=== PATIENT | male | born 1960 | race Caucasian/White ===

== ENCOUNTER 2020-11-13 07:51 | Outpatient (CLI) | payer BC, SELFPAY ==
[2020-11-13 08:09] LABS: Basophils Absolute Auto 0.1 K/mm3 (0.0-0.1); Basophils Percent Auto 0.7 % (0.2-1.2); Eosinophils Absolute Auto 0.2 K/mm3 (0-0.3); Eosinophils Percent Auto 1.9 % (0-4.4); Hematocrit 43.9 % (42.0-52.0); Hemoglobin 14.7 g/dL (14.0-18.0); Immature Granulocyte Absolute 0.07 K/mm3 (0.00-0.031); Immature Granulocyte Percent A 0.7 % (0-0.5); Lymphocytes Absolute Auto 1.39 K/mm3 (0.9-3.2); Lymphocytes Percent Auto 14.2 % (18.3-44.2); Mean Corpuscular HGB Conc 33.5 g/dl (32-36); Mean Corpuscular Hemoglobin 31.4 pg (26-34); Mean Corpuscular Volume 93.8 fl (80-100); Mean Platelet Volume 10.4 fl (7.4-10.4); Monocytes Absolute Auto 0.9 K/mm3 (0.1-0.6); Neutrophils Absolute Auto 7.2 K/mm3 (1.3-6.7); Neutrophils Percent Auto 73.5 % (45.5-73.1); Platelet Count Result 277 k/mm3 (150-375); Red Blood Count 4.68 M/mm3 (4.6-6.20); Red Cell Distribution Width 12.6 % (11.5-14.5); White Blood Count 9.8 K/mm3 (4.5-10.0)
[2020-11-13 08:39] LABS: Alanine Aminotransferase 28 U/L (4-50); Albumin Level 4.3 g/dL (3.5-5.1); Alkaline Phosphatase 58 U/L (38-126); Anion Gap 9 mmol/L (8-16); Aspartate Amino Transferase 30 U/L (17-59); Bilirubin,Total 0.6 mg/dL (0.2-1.3); Blood Urea Nitrogen 19 mg/dL (9-20); Calcium 9.6 mg/dL (8.4-10.2); Carbon Dioxide 28 mmol/L (22-30); Chloride 104 mmol/L (98-107); Cholesterol 237 mg/dL (0-200); Estimated Glomerular Filt Rate > 60; Glucose 149 mg/dL (75-110); HDL Direct 46 mg/dL; Potassium 4.5 mmol/L (3.4-5.0); Sodium 141 mmol/L (137-145); Triglycerides 184 mg/dL (<150)
[2020-11-13 08:51] LABS: LDL Cholesterol Direct 127 mg/dL
== END 2020-11-13 07:52 | disposition home or self-care (01) ==
PROVIDERS: PCP Emergency Medicine; Visit Provider Emergency Medicine
DX: E78.2 Mixed hyperlipidemia (principal)
CPT/HCPCS: 36415; 80053; 80061; 85025

== ENCOUNTER 2020-11-14 11:42 | Outpatient (CLI) | payer BC, SELFPAY ==
[2020-11-14 12:17] LABS: Hemoglobin A1C 7.9 % (<5.7)
== END 2020-11-14 11:43 | disposition home or self-care (01) ==
PROVIDERS: PCP Emergency Medicine; Visit Provider Emergency Medicine
DX: E78.5 Hyperlipidemia, unspecified (principal)
CPT/HCPCS: 36415; 83036

== ENCOUNTER 2021-03-19 09:25 | Outpatient (CLI) | payer BC, SELFPAY ==
[2021-03-19 10:05] LABS: Alanine Aminotransferase 27 U/L (4-50); Albumin Level 4.7 g/dL (3.5-5.1); Alkaline Phosphatase 54 U/L (38-126); Anion Gap 10 mmol/L (8-16); Aspartate Amino Transferase 32 U/L (17-59); Bilirubin,Total 0.7 mg/dL (0.2-1.3); Blood Urea Nitrogen 23 mg/dL (9-20); Carbon Dioxide 27 mmol/L (22-30); Chloride 105 mmol/L (98-107); Cholesterol 130 mg/dL (0-200); Estimated Glomerular Filt Rate 56; Glucose 121 mg/dL (75-110); HDL Direct 46 mg/dL; Potassium 4.5 mmol/L (3.4-5.0); Sodium 142 mmol/L (137-145); Triglycerides 105 mg/dL (<150)
[2021-03-19 10:08] LABS: LDL Cholesterol Direct 50 mg/dL
[2021-03-19 10:12] LABS: Hemoglobin A1C 6.5 % (<5.7)
[2021-03-19 11:20] LABS: Creatinine Urine 145.5 mg/dL
[2021-03-19 11:24] LABS: MALB Creatinine Ratio 73.4 mg/g (0-30); Microalbumin Urine Random 106.8 mg/L (0-16.7)
== END 2021-03-19 09:26 | disposition home or self-care (01) ==
LOC: ANHLAB 09:26
PROVIDERS: PCP Emergency Medicine; Visit Provider Emergency Medicine
DX: E11.9 Type 2 diabetes mellitus without complications (principal); I10 Essential (primary) hypertension
CPT/HCPCS: 36415; 80053; 80061; 82043; 83036

== ENCOUNTER 2021-07-31 08:23 | Outpatient (CLI) | payer BC, SELFPAY ==
[2021-07-31 09:24] LABS: Alanine Aminotransferase 22 U/L (4-50); Albumin Level 4.6 g/dL (3.5-5.1); Alkaline Phosphatase 50 U/L (38-126); Anion Gap 7 mmol/L (8-16); Aspartate Amino Transferase 26 U/L (17-59); Bilirubin,Total 0.5 mg/dL (0.2-1.3); Blood Urea Nitrogen 26 mg/dL (9-20); Calcium 9.7 mg/dL (8.4-10.2); Carbon Dioxide 30 mmol/L (22-30); Chloride 103 mmol/L (98-107); Cholesterol 145 mg/dL (0-200); Estimated Glomerular Filt Rate > 60; Glucose 116 mg/dL (65-110); HDL Direct 45 mg/dL; Potassium 4.4 mmol/L (3.4-5.0); Sodium 140 mmol/L (137-145); Triglycerides 110 mg/dL (<150)
[2021-07-31 09:30] LABS: Hemoglobin A1C 6.3 % (<5.7)
[2021-07-31 09:35] LABS: LDL Cholesterol Direct 66 mg/dL
[2021-07-31 09:48] LABS: Creatinine Urine 75.9 mg/dL
[2021-07-31 09:52] LABS: MALB Creatinine Ratio 63.6 mg/g (0-30); Microalbumin Urine Random 48.3 mg/L (0-16.7)
== END 2021-07-31 08:24 | disposition home or self-care (01) ==
PROVIDERS: PCP Emergency Medicine; Visit Provider Emergency Medicine
DX: E11.9 Type 2 diabetes mellitus without complications (principal); I10 Essential (primary) hypertension
CPT/HCPCS: 36415; 80053; 80061; 82043; 83036

== ENCOUNTER 2022-02-01 09:38 | Outpatient (CLI) | payer BC, SELFPAY ==
[2022-02-01 10:28] LABS: Alanine Aminotransferase 21 U/L (6-50); Albumin Level 4.9 g/dL (3.5-5.1); Alkaline Phosphatase 52 U/L (38-126); Anion Gap 9 mmol/L (8-16); Aspartate Amino Transferase 27 U/L (17-59); Bilirubin,Total 0.4 mg/dL (0.2-1.3); Blood Urea Nitrogen 22 mg/dL (9-20); Calcium 9.6 mg/dL (8.4-10.2); Carbon Dioxide 27 mmol/L (22-30); Chloride 103 mmol/L (98-107); Cholesterol 152 mg/dL (0-200); Estimated Glomerular Filt Rate > 60; Glucose 129 mg/dL (65-110); HDL Direct 44 mg/dL; Potassium 4.3 mmol/L (3.4-5.0); Sodium 139 mmol/L (137-145); Triglycerides 91 mg/dL (<150)
[2022-02-01 10:29] LABS: Creatinine Urine 104.2 mg/dL
[2022-02-01 10:34] LABS: Microalbumin Urine Random 68.8 mg/L (0-16.7)
[2022-02-01 10:40] LABS: LDL Cholesterol Direct 69 mg/dL
[2022-02-01 10:41] LABS: Hemoglobin A1C 6.3 % (<5.7)
[2022-02-01 10:53] LABS: Prostate Specific Antigen 1.6 ng/mL (< OR = 4.0)
== END 2022-02-01 09:39 | disposition home or self-care (01) ==
PROVIDERS: PCP Emergency Medicine; Visit Provider Emergency Medicine
DX: E11.9 Type 2 diabetes mellitus without complications (principal); I10 Essential (primary) hypertension; Z12.5 Encounter for screening for malignant neoplasm of prostate
CPT/HCPCS: 36415; 80053; 80061; 82043; 83036; 84153; G0103

== ENCOUNTER 2023-03-09 07:45 | Outpatient (CLI) | payer BC, SELFPAY ==
[2023-03-09 08:33] LABS: Alanine Aminotransferase 22 U/L (6-50); Albumin Level 4.3 g/dL (3.5-5.1); Alkaline Phosphatase 52 U/L (38-126); Anion Gap 6 mmol/L (8-16); Aspartate Amino Transferase 25 U/L (17-59); Bilirubin,Total 0.4 mg/dL (0.2-1.3); Blood Urea Nitrogen 22 mg/dL (9-20); Calcium 8.9 mg/dL (8.4-10.2); Carbon Dioxide 29 mmol/L (22-30); Chloride 106 mmol/L (98-107); Cholesterol 101 mg/dL (0-200); Estimated Glomerular Filt Rate > 60; Glucose 111 mg/dL (65-110); HDL Direct 39 mg/dL; Potassium 4.3 mmol/L (3.4-5.0); Sodium 141 mmol/L (137-145); Triglycerides 61 mg/dL (<150)
[2023-03-09 08:38] LABS: Hemoglobin A1C 6.4 % (<5.7)
[2023-03-09 08:44] LABS: LDL Cholesterol Direct 48 mg/dL
[2023-03-09 09:04] LABS: Prostate Specific Antigen 1.7 ng/mL (< OR = 4.0)
[2023-03-09 09:12] LABS: MALB Creatinine Ratio 58.6 mg/g (0-30); Microalbumin Urine Random 49.2 mg/L (0-16.7)
== END 2023-03-09 07:46 | disposition home or self-care (01) ==
LOC: ANHLAB 07:47
PROVIDERS: PCP Emergency Medicine; Visit Provider Emergency Medicine
DX: E78.5 Hyperlipidemia, unspecified (principal); Z12.5 Encounter for screening for malignant neoplasm of prostate; E11.9 Type 2 diabetes mellitus without complications
CPT/HCPCS: 36415; 80053; 80061; 82043; 83036; 84153; G0103

== ENCOUNTER 2023-08-18 07:15 | Outpatient (CLI) | payer BC, SELFPAY ==
--- NOTE | ~2023-08-18 | XR_ITS ---
[id number] 08/18/2023 07:37 Indication: Left knee pain Procedure: 2 views left knee Comparison: No prior studies for comparison. Findings: Mild osteoarthritis of the left knee. No fracture or traumatic malalignment. No significant joint effusion. No foreign bodies. Impression: 1: Mild osteoarthritis of the left knee. Reviewed, dictated and finalized at location L. COMMUNICATIONS REPAIRER Impression: 1: Mild osteoarthritis of the left knee.
== END 2023-08-18 07:16 ==
PROVIDERS: PCP Emergency Medicine; Visit Provider Emergency Medicine
DX: M17.12 Unilateral primary osteoarthritis, left knee (principal)
CPT/HCPCS: 73560

== ENCOUNTER 2023-09-30 07:44 | Outpatient (CLI) | payer BC, SELFPAY ==
[2023-09-30 08:25] LABS: Alanine Aminotransferase 23 U/L (6-50); Albumin Level 4.4 g/dL (3.5-5.1); Alkaline Phosphatase 67 U/L (38-126); Anion Gap 11 mmol/L (8-16); Aspartate Amino Transferase 27 U/L (17-59); Bilirubin,Total 0.8 mg/dL (0.2-1.3); Blood Urea Nitrogen 17 mg/dL (9-20); Calcium 9.5 mg/dL (8.4-10.2); Carbon Dioxide 24 mmol/L (22-30); Chloride 104 mmol/L (98-107); Cholesterol 143 mg/dL (0-200); Estimated Glomerular Filt Rate > 60; Glucose 147 mg/dL (65-110); HDL Direct 46 mg/dL; Potassium 4.1 mmol/L (3.4-5.0); Sodium 139 mmol/L (137-145); Triglycerides 116 mg/dL (<150)
[2023-09-30 08:31] LABS: Hemoglobin A1C 9.1 % (<5.7)
[2023-09-30 08:36] LABS: LDL Cholesterol Direct 73 mg/dL
[2023-09-30 08:59] LABS: Creatinine Urine 165.8 mg/dL
[2023-09-30 09:04] LABS: MALB Creatinine Ratio 64.6 mg/g (0-30); Microalbumin Urine Random 107.1 mg/L (0-16.7)
== END 2023-09-30 07:45 | disposition home or self-care (01) ==
LOC: ANHLAB 07:46
PROVIDERS: PCP Emergency Medicine; Visit Provider Emergency Medicine
DX: E78.5 Hyperlipidemia, unspecified (principal); E11.9 Type 2 diabetes mellitus without complications
CPT/HCPCS: 36415; 80053; 80061; 82043; 83036

== ENCOUNTER 2023-10-24 01:18 | Observation (INO) | payer BC, SELFPAY ==
[2023-10-24] VITALS (11 sets, daily range): BP systolic 121–172; BP diastolic 67–94; PULSE 56–96; RESP 14–24; TEMP 36.4–37.3; O2SAT 96–100
--- NOTE | ~2023-10-24 | XR_ITS ---
EXAMINATION: XR retrograde pyelo w/stent LT DATE: 10/24/2023 13:27 INDICATION: Left ureteral stent placement TECHNIQUE: 76 fluoroscopic images of the abdomen and pelvis were obtained during procedure performed by Dr. Tan. Radiologist was not present for the imaging or procedure. The amount of fluoroscopy t arpan used during this procedure was 0.4 minutes. COMPARISON: CT dated 10/24/2023 FINDINGS: No change in a couple bilateral renal stones, the larger on the right project over the lower pole of the right kidney and the smaller on the left in the region of the left ureteropelvic junction. No yesy nge in a couple phleboliths in the deep left hemipelvis. Retrograde contrast injection into the left ureter with demonstrates passage of contrast beyond the stone at the ureteropelvic junction into the mildly dilated left renal collecting system. The left ureter appears normal. Final images demonstrate a new left internal ureteral stent with loops formed in the bladder and in the left renal pelvis. Th e stone at the left ureteropelvic junction remains in place. IMPRESSION: 1. Bilateral nephrolithiasis including at least partially obstructing stone at the left ureteropelvic junction. 2. Placement of a left intrarenal stent which is in expected position. The stone at the ureteropelvic junction appears to remain in unchanged position post placement. Reviewed, dictated and finalized at location A. S PARTER IMPRESSION: 1. Bilateral nephrolithiasis including at least partially obstructing stone at the left ureteropelvic junction. 2. Placement of a left intrarenal stent which is in expected position. The ston e at the ureteropelvic junction appears to remain in unchanged position post pl acement.
--- NOTE | ~2023-10-24 | CT_ITS ---
EXAMINATION: CT abdomen pelvis wo con DATE: 10/24/2023 02:04 INDICATION: Flank pain. Kidney stones. TECHNIQUE: Computed tomography (CT) of the abdomen and pelvis was performed without intravenous contr ast. Automated exposure control and iterative reconstruction technique were employed. The dose-length product was 977.24 mGy-cm. COMPARISON: CT abdomen 12/27/2008, abdomen radiographs 10/24/2023 FINDINGS: The visualized portions of the lung bases demonstrate minimal atelectasis. No pleural effus ion. The heart size is normal. There are coronary artery calcifications. No pericardial effusion. The re is a small sliding hiatal hernia. Calcifications in the liver and spleen are consistent with old g ranulomatous disease. The gallbladder, pancreas, and adrenal glands are normal. There are 3 mm and 18 mm stones in right kidney. There is mild left hydronephrosis. There is an 8 mm stone in proximal lef t ureter. The prostate is mildly enlarged. There are no dilated loops of bowel. The appendix is tam l. There is calcified atherosclerosis of the aorta and many of the other arteries. There are no patho logically enlarged lymph nodes. There is no free intraperitoneal fluid. There is severe lumbar spondy losis and moderate thoracic spondylosis. IMPRESSION: 1. 8 mm stone in proximal left ureter with mild left hydronephrosis. 2. Nonobstructing right kidney stones. 3. Small sliding hiatal hernia. Reviewed, dictated and finalized at location E. OTICS TECHNICIAN
--- NOTE | ~2023-10-24 | XR_ITS ---
EXAMINATION: XR abdomen/kub 1V DATE: 10/24/2023 04:46 INDICATION: Urolithiasis. TECHNIQUE: A supine view of the abdomen on 2 radiographs was obtained. COMPARISON: Abdomen radiographs 03/08/2009, CT abdomen and pelvis 10/24/2023 FINDINGS: There are no dilated loops of bowel. There are 18 mm and 3 mm stones in right kidney. There is a 5 mm stone in proximal left ureter at L1-L2. There are phleboliths in the pelvis. IMPRESSION: 1. 5 mm stone in proximal left ureter. 2. 18 mm and 3 mm stones in right kidney. Reviewed, dictated and finalized at location E. MAKER
--- NOTE | ~2023-10-24 | XR_ITS ---
EXAMINATION: XR abdomen/kub 1V DATE: 10/25/2023 12:04 INDICATION: Left ureteral stone. TECHNIQUE: A supine view of the abdomen was obtained. COMPARISON: CT abdomen and pelvis 10/24/2023 FINDINGS: There are no dilated loops of bowel. There is a left internal ureteral stent in expected po sition. There is a 5 mm stone in proximal left ureter. There is a 16 mm stone in right kidney. IMPRESSION: 1. 5 mm stone in proximal left ureter with left internal ureteral stent in expected position. 2. Right kidney stone. Reviewed, dictated and finalized at location A. NE ADVERTISING DIRECTOR IMPRESSION: 1. 5 mm stone in proximal left ureter with left internal ureteral stent in expe cted position. 2. Right kidney stone.
[2023-10-24 02:05] LABS: Basophils Percent Auto 0.1 % (0.2-1.2); Hemoglobin 14.5 g/dL (14.0-18.0); Immature Granulocyte Absolute 0.08 K/mm3 (0.00-0.031); Immature Granulocyte Percent A 0.6 % (0-0.5); Lymphocytes Absolute Auto 0.84 K/mm3 (0.9-3.2); Lymphocytes Percent Auto 6.5 % (18.3-44.2); Mean Corpuscular HGB Conc 34.5 g/dl (32-36); Mean Corpuscular Hemoglobin 30.9 pg (26-34); Mean Corpuscular Volume 89.4 fl (80-100); Mean Platelet Volume 10.9 fl (7.4-10.4); Monocytes Absolute Auto 1.2 K/mm3 (0.1-0.6); Monocytes Percent Auto 9.3 % (2.6-8.5); Neutrophils Absolute Auto 10.9 K/mm3 (1.3-6.7); Neutrophils Percent Auto 83.5 % (45.5-73.1); Platelet Count Result 223 k/mm3 (150-375); Red Cell Distribution Width 12.2 % (11.5-14.5)
[2023-10-24 02:15] LABS: Alanine Aminotransferase 20 U/L (6-50); Albumin Level 4.1 g/dL (3.5-5.1); Alkaline Phosphatase 81 U/L (38-126); Anion Gap 12 mmol/L (8-16); Aspartate Amino Transferase 25 U/L (17-59); Blood Urea Nitrogen 14 mg/dL (9-20); Calcium 9.3 mg/dL (8.4-10.2); Carbon Dioxide 20 mmol/L (22-30); Chloride 102 mmol/L (98-107); Estimated CRCL calculation 84 ml/min; Estimated Glomerular Filt Rate > 60; Glucose 228 mg/dL (65-110); Potassium 3.6 mmol/L (3.4-5.0); Sodium 134 mmol/L (137-145)
[2023-10-24] MEDS: ONDANSETRON INJ 4 MG/2 ML VIAL IV PUSH (02:23)
[2023-10-24] MEDS: MORPHINE SULFATE (*CRX) 4 MG/ML INJ IV PUSH ×2 (02:23→08:34)
[2023-10-24] MEDS: SODIUM CHLORIDE 0.9% IV 1,000 ML 999 ML IV CONT ×3 (02:24→05:31)
--- NOTE | 2023-10-24 03:01 | ED.ABDPAIN ---
HPI - Abdominal Pain General Chief Complaint: Abdominal Pain Stated Complaint: kidney stone pain, stool is red/orange Time Seen by Provider: 10/24/23 01:31 Source: patient Mode of arrival: ambulatory Limitations: no limitations History of Present Illness HPI narrative: This is a 63 year old male that presents to the ER for left flank pain. Ongoing over the last 3 days. Associated with hematuria. Reports additionally yesterday he started to have myalgias, vomiting and diarrhea. Denies fevers or dysuria. Related Data Home Medications Medication Instructions Recorded Confirmed ferrous sulfate 325 mg (65 mg 325 mg PO DAILY 10/31/20 10/04/23 iron) tablet (iron) magnesium 250 mg tablet 250 mg PO DAILY 10/31/20 10/04/23 potassium 99 mg tablet See Rx Instructions .Route .COMPLEX 10/31/20 10/04/23 zinc 50 mg tablet 50 mg PO DAILY 10/31/20 10/04/23 diclofenac sodium 1 % topical gel 2 g topical QID PRN 08/17/23 10/04/23 (Voltaren Arthritis Pain) glucosamine [id number] 1 tablet PO DAILY 08/17/23 10/04/23 teodoro 1,500 mg-400 unit-100 mg tablet (Osteo Bi-Flex (5-Loxin)) Allergies Allergy/AdvReac Type Severity Reaction Status Date / Time Penicillins Allergy Unknown unknown Verified 10/24/23 01:33 Review of Systems Review of Systems: CONSTITUTIONAL: Denies fever GASTROINTESTINAL: Reports abdominal pain, nausea, vomiting, and diarrhea. GENITOURINARY: Reports hematuria. Denies dysuria All systems reviewed & are unremarkable except as noted in HPI and below [facility] Past Medical History Medical History (Updated 10/24/23 @ 03:29 by Hanane Conti PA-C) HTN (hypertension) Mixed hyperlipidemia Family History Family History Father Family history of arthritis Social History Social History Smoking status: Current every day smoker Alcohol intake: current Alcohol use details: occasionally Lack of Transportation: No Lack of Food: Never True Current Housing: I Have Housing Concerned About Future Housing: YES Difficulty Paying Gas/Electric Bills: No Difficulty Paying for Meds: No Currently Unemployed: No Education: High School Diploma/GED Difficulty w/ Childcare or Family Care: No Exam Narrative: GENERAL: Well-appearing, well-nourished, and in no acute distress. HEAD: Normocephalic, atraumatic. EYES: EOMI. CHEST: Clear to auscultation. No respiratory distress. No wheezes rales or rhonchi HEART: Regular rate and rhythm. No murmur heard. Normal peripheral pulses. ABDOMEN: Soft, nontender, nondistended, normal active bowel sounds. EXTREMITIES: Normal range of motion. No edema. SKIN: Warm, dry, no rash. NEURO: No focal deficits. Alert and oriented x3. PSYCH: Normal mood and affect Course Course Emergency Course: patient updated on his workup and agrees with plan of care Consultations Consultation #1: spoke with Dr. Rawls about patient and workup. Agrees with admission for further IV antibiotics and possible procedure Date: 10/24/23 Consultation #2: Spoke with hospitalist about patient and workup who accepts admission Date: 10/24/23 Vital Signs Vital signs: Vital Signs Temperature 98.5 F 10/24/23 01:21 Pulse Rate 96 10/24/23 01:21 Respiratory Rate 24 H 10/24/23 01:21 Blood Pressure 172/94 H 10/24/23 01:21 Pulse Oximetry 99 10/24/23 01:21 Oxygen Delivery Room Air 10/24/23 01:21 Temperature 98.5 F 10/24/23 01:21 Pulse Rate 72 10/24/23 04:12 Respiratory Rate 18 10/24/23 04:12 Blood Pressure 141/89 H 10/24/23 04:12 Pulse Oximetry 98 10/24/23 04:12 Oxygen Delivery Room Air 10/24/23 01:21 MDM - Abdominal Pain MDM Narrative Medical decision making narrative: Patient presents to the ER for left flank pain ongoing over the last couple of days. Additionally endorsing vomiting, diarrhea and myalgias. He is afe
[2023-10-24 03:23] LABS: Appearance Urine Turbid (Clear); Bacteria Urine 1+ /hpf; Bilirubin Urine Negative (Negative); Blood Urine 2+ (Negative); Color Urine Yellow (Yellow); Glucose Urine UA Negative (Negative); Ketones Urine 3+ mg/dL (Negative); Leukocyte Esterase Ur 3+ LEU/UL (Negative); Nitrate Urine Positive (Negative); Non Pathogenic Casts 0-2; Protein Urine 2+ mg/dL (Negative); RBC Urine 21-50 /hpf (0-2); Specific Grav Ur 1.023 (1.001-1.035); Squamous Epithelial Cell Urine None seen /hpf (Few); Urobilinogen Urine 0.2 mg/dL (<2.0); WBC Urine >100 /hpf; pH Urine 5.5 (5.0-9.0)
[2023-10-24 03:24] LABS: Add Urine Microscopic? YES
[2023-10-24 03:49] LABS: Influenza A QL RT-PCR Negative (Negative); Influenza B QL RT-PCR Negative (Negative); SARS-CoV-2 RNA PCR Negative (Negative)
[2023-10-24 04:44] LABS: Lactic Acid Reflex 1.3 mmol/L (0.7-2.0)
--- NOTE | 2023-10-24 05:59 | ADMGEN ---
This patient, Francisco Leroy, was admitted to Medical Room 253-01. Patient/family oriented to hospital policies and general routines including ID bracelet, bed and alarms, visiting hours, pain management, procedures, bathroom and other care routines, personal items, smoking policy, room service/diet, and visiting hours. Information on how to activate the Rapid Response Team has been discussed. Patient/Family are encouraged to report perceived risks to care and to ask questions if they do not understand what they are told or what they should do.
[2023-10-24] MEDS: SODIUM CHLORIDE 0.9% IV 1,000 ML 125 ML IV CONT (06:25)
--- NOTE | 2023-10-24 07:51 | WPDURCON ---
Assessment and Plan Assessment and plan (1) Left ureteral stone: Code(s): N20.1 - Calculus of ureter Status: Acute Assessment and Plan: I reviewed imaging and discuss findings with the patient. He has had stone intervention in the past informed lithotripsy. He has also passed stones on his own. This stone is large and likelihood of passage on its own is low. We will plan on a left ureteral stent today. He understands risks of bleeding, infection, damage to the urinary tract, inability to place the stent. He also understands I will not be removing the stone. For 2 reasons: Possibility of infection and size and location of the stone. He will have delayed stone management form of lithotripsy or ureteroscopy (2) Calculus, kidney: Code(s): N20.0 - Calculus of kidney Status: Acute Assessment and Plan: Large right lower pole stone. (3) Abnormal urinalysis: Code(s): R82.90 - Unspecified abnormal findings in urine Status: Acute Assessment and Plan: Does not clinically seem infected. Urinalysis is positive continue antibiotics for now. Await urine culture. Treat as appropriate based on culture results Urology Consult Note HPI Date Seen: 10/24/23 Requesting Physician: Berta Martinez DO Primary Care Provider: Shan Lewis MD Consult Narrative Narrative: Francisco Leroy is a 63 year old male iron 3 of multiple kidney stones. He has passed several on his own in the past. He has also had lithotripsy in the past. He is followed by my partner Dr. Rodriguez. Currently he has been having left flank pain since . He took some Tylenol and ibuprofen at home. He also took some oxycodone that he had left over. He noted nausea and diarrhea. The pain did not relent and eventually became bad enough for visit the emergency room. He noted some dark colored urine. No gross hematuria. No fevers or chills. No dysuria or other symptoms of infection. He has a slightly elevated white count. He has an abnormal urinalysis but clinically does not look infected. CT scan shows a very large right lower pole kidney stone. He also has a 8 mm left proximal ureteral stone. It is visible on radiograph. We discussed interventions today in the form with stent with delayed intervention with either ureteroscopy or lithotripsy. Review of Systems Review of Systems: All systems reviewed & are unremarkable except as noted in HPI and below PMFSH Past Medical History Medical History HTN (hypertension) Mixed hyperlipidemia Family History Family History Father Family history of arthritis History of blood clots Cerebrovascular accident Renal stones Mother Renal stones Sibling Renal stones Social History Social History Smoking status: Never smoker Alcohol intake: current Drinks per week: 3 Alcohol use details: occasionally Substance use type: marijuana Do You Feel Safe in your Home?: Yes Lack of Transportation: No Lack of Food: Never True Current Housing: I Have Housing Concerned About Future Housing: No Difficulty Paying Gas/Electric Bills: No Difficulty Paying for Meds: No Currently Unemployed: No Education: High School Diploma/GED Difficulty w/ Childcare or Family Care: No Spiritual care concerns: No Meds Home Medications and Allergies Home Medications Medication Instructions Recorded Confirmed Type ferrous sulfate 325 mg (65 mg 325 mg PO DAILY 10/31/20 10/24/23 History iron) tablet (iron) magnesium 250 mg tablet 250 mg PO DAILY 10/31/20 10/24/23 History potassium 99 mg tablet 99 mg PO DAILY 10/31/20 10/24/23 History zinc 50 mg tablet 50 mg PO DAILY 10/31/20 10/24/23 History diclofenac sodium 1 % topical gel 2 g topical QID PRN Pain (Scale 08/17/23 10/24/23 Hist
--- NOTE | 2023-10-24 07:58 | WPDHPUPDATE1 ---
History and Physical Update Update Date/Time: 10/24/23 07:58 History and Physical has been reviewed, including an updated exam of the patient. There are NO changes in the patient's condition. Risks, benefits, and alternatives have been discussed and questions answered. Patient agrees to proceed with procedure.
[2023-10-24 08:25] LABS: Glucose Point of Care 178 mg/dl (65-105)
[2023-10-24] MEDS: LACTATED RINGERS 1,000 ML 30 ML IV CONT (12:00)
[2023-10-24 12:05] LABS: Glucose Point of Care 154 mg/dl (65-105)
--- NOTE | 2023-10-24 12:07 | PC.NURSE ---
Patient left the floor at 1209 by stretcher to be transported to for procedure.
[2023-10-24 12:29] LABS: Glucose Point of Care 150 mg/dl (65-105)
--- NOTE | 2023-10-24 12:43 | WPDANESEPPF ---
Anes - Initial Pre Proc Eval Procedure: Operation Date: 10/24/23 13:00 Proposed Procedures p Cystoscopy,Left Stent Placement - Stephen Tan MD Date/Time: 10/24/23 12:43 Surgeon: Berta Martinez DO Pre Op Diagnosis: Ureterolithiasis, Acute UTI Patient Data Age: 63 Gender: M Height: 1.75 m Weight: 95.25 kg Last Vital Signs Temp 36.4 C 10/24/23 05:50 Pulse 74 10/24/23 05:50 Resp 20 10/24/23 05:50 BP 146/85 H 10/24/23 05:50 Pulse Ox 99 10/24/23 05:50 O2 Del Method Room Air 10/24/23 08:00 Allergies Allergy/AdvReac Type Severity Reaction Status Date / Time Penicillins Allergy Unknown unknown Verified 10/24/23 01:33 Home Medications Medication Instructions Recorded Confirmed Type ferrous sulfate 325 mg (65 mg 325 mg PO DAILY 10/31/20 10/24/23 History iron) tablet (iron) magnesium 250 mg tablet 250 mg PO DAILY 10/31/20 10/24/23 History potassium 99 mg tablet 99 mg PO DAILY 10/31/20 10/24/23 History zinc 50 mg tablet 50 mg PO DAILY 10/31/20 10/24/23 History diclofenac sodium 1 % topical gel 2 g topical QID PRN Pain (Scale 08/17/23 10/24/23 History (Voltaren Arthritis Pain) Score 1-3) glucosamine [id number] 1 tablet PO DAILY 08/17/23 10/24/23 History teodoro 1,500 mg-400 unit-100 mg tablet (Osteo Bi-Flex (5-Loxin)) allopurinol 100 mg tablet 100 mg PO DAILY 10/24/23 10/24/23 History lisinopril 10 mg tablet 10 mg PO DAILY 10/24/23 10/24/23 History rosuvastatin 10 mg tablet 10 mg PO DAILY 10/24/23 10/24/23 History Laboratory Tests 10/24/23 10/24/23 10/24/23 01:43 03:09 03:13 WBC 13.0 H K/mm3 (4.5-10.0) RBC 4.70 M/mm3 (4.6-6.20) Hgb 14.5 g/dL (14.0-18.0) Hct 42.0 % (42.0-52.0) MCV 89.4 fl (80-100) MCH 30.9 pg (26-34) MCHC 34.5 g/dl (32-36) RDW 12.2 % (11.5-14.5) Plt Count 223 k/mm3 (150-375) MPV 10.9 H fl (7.4-10.4) Immature Gran % (Auto) 0.6 H % (0-0.5) Neut % (Auto) 83.5 H % (45.5-73.1) Lymph % (Auto) 6.5 L % (18.3-44.2) [place] % (Auto) 9.3 H % (2.6-8.5) Eos % (Auto) 0.0 % (0-4.4) Baso % (Auto) 0.1 L % (0.2-1.2) Lymph # (Auto) 0.84 L K/mm3 (0.9-3.2) [place] # (Auto) 1.2 H K/mm3 (0.1-0.6) Eos # (Auto) 0.0 K/mm3 (0-0.3) Baso # (Auto) 0.0 K/mm3 (0.0-0.1) Abs Immat Gran (auto) 0.08 H K/mm3 (0.00-0.031) Absolute Neuts (auto) 10.9 H K/mm3 (1.3-6.7) Absolute Nucleated RBC 0.0 K/mm3 (0.0-0.012) Nucleated RBC % 0.0 % (0.0-0.2) Sodium 134 L mmol/L (137-145) Potassium 3.6 mmol/L (3.4-5.0) Chloride 102 mmol/L (98-107) Carbon Dioxide 20 L mmol/L (22-30) Anion Gap 12 mmol/L (8-16) BUN 14 mg/dL (9-20) Creatinine 0.90 mg/dL (0.7-1.3) Estim Creat Clear Calc 84 ml/min Estimated GFR > 60 (59 - ) Glucose 228 H mg/dL (65-110) POC Capillary Glucose Lactic Acid Calcium 9.3 mg/dL (8.4-10.2) Total Bilirubin 1.0 mg/dL (0.2-1.3) AST 25 U/L (17-59) ALT 20 U/L (6-50) Alkaline Phosphatase 81 U/L (38-126) Total Protein 8.0 g/dL (6.3-8.2) Albumin 4.1 g/dL (3.5-5.1) Urine Color Yellow (Yellow) Urine Appearance Turbid H (Clear) Urine pH 5.5 (5.0-9.0) Ur Specific [place] 1.023 (1.001-1.035) Urine Protein 2+ H mg/dL (Negative) Urine Glucose (UA) Negative mg/dL (Negative) Urine Ketones 3+ H mg/dL (Negative) Ur Blood (Man) 2+ H (Negative) Urine Nitrate Positive H (Negative) Urine Bilirubin Negative (Negative) Urine Urobilinogen 0.2 mg/dL (<2.0) Leukocyt
[2023-10-24] MEDS: LIDOCAINE HCL 2% GEL UROJET 10 ML PKG MUCOUS MEM (13:11)
--- NOTE | 2023-10-24 13:23 | W.PM.PROC2 ---
Procedure Note - Detailed Date of Procedure 10/24/23 Pre-op Diagnosis Left ureteral stone Post-op Diagnosis Same Procedure Performed Cystoscopy, left retrograde pyelogram, left stent placed Surgeon Stephen Tan MD Anesthesia MAC and Local (Lidocaine jelly) Indications A gentle with a left proximal ureteral stone. Abnormal urinalysis. We will place ureteral stent today. He understands risks of bleeding, infection, inability to place stent, damage to the urinary tract. He understands he will need delayed stone management Findings Left proximal ureteral stone Description of Procedure He has correctly identified. Informed consent obtained. From the operating room. He was given monitored anesthesia care. Placed in dorsal thigh position. He was prepped draped sterile fashion. He was already on appropriate perioperative antibiotics. A time-out performed. Cystoscopy revealed enlarged prostate. Bladder showed mild trabeculations. Ureteral orifices were normal. I shot a gentle retrograde pyelogram on the patient's left. There is some mild proximal hydronephrosis. There was a filling defect at the ureteropelvic junction. I placed a guidewire into the kidney. I then placed a 4.8 variable length stent. Proximal coil in the upper pole kidney. Distal coil the bladder. The bladder was drained. He was awakened transferred to PACU in stable condition. Implants Ureteral stent Estimated Blood Loss 1 Pathology None sent Complications No immediate complications Condition Stable Disposition PACU
[2023-10-24 13:33] LABS: Glucose Point of Care 170 mg/dl (65-105)
--- NOTE | 2023-10-24 13:35 | PM.IMHP ---
H&P: HPI History of Present Illness Date/Time: 10/24/23 13:35 Chief Complaint: Left flank pain Narrative: This is a 63-year-old male with a past medical history of uncontrolled diabetes, hypertension, hyperlipidemia and gout the presented to the ED on 10/24/2023 with chief complaint of left flank pain, diarrhea, nausea and vomiting. Patient's symptoms started approximately 5 days ago. He has history of kidney stones and has been dealing with them for at least 30 years. He believes that his symptoms were associated with kidney stone as well as flu-like symptoms. Patient thought that this stone will pass and selling but it did not. COVID in flu test is negative. CT abdomen pelvis revealing a 8 mm stone in the proximal left ureter with mild left hydronephrosis. Patient's urine is turbid, with 2+ blood, positive nitrates, 3+ leukocyte esterase, 21-50 rbc's, greater than 100 wbc's and 1+ bacteria. Patient started on IV antibiotics . Due to ongoing diarrhea and nausea patient likely dehydrated started on IV fluids. Urology consulted for ureteral stone. Patient admitted in the hospital and being treated for UTI and 8 mm left ureteral stone. [facility] Past Medical History Medical History (Updated 10/24/23 @ 13:47 by Liza Nelson PA-C) Diabetes mellitus HTN (hypertension) Mixed hyperlipidemia ANGY on CPAP Surgical History Surgical History H/O lithotripsy Family History Family History Father Family history of arthritis History of blood clots Cerebrovascular accident Renal stones Mother Renal stones Sibling Renal stones Social History Social History (Updated 10/24/23 @ 13:49 by Liza Nelson PA-C) Social History: Patient with history of chewing tobacco. Patient chewed tobacco for approximately 25 years and quit 7 years ago. Smoking status: Never smoker Tobacco type: smokeless tobacco Smokeless tobacco user: chewing tobacco Alcohol intake: current Drinks per week: 3 Alcohol use details: occasionally Substance use type: marijuana Do You Feel Safe in your Home?: Yes Lack of Transportation: No Lack of Food: Never True Current Housing: I Have Housing Concerned About Future Housing: No Difficulty Paying Gas/Electric Bills: No Difficulty Paying for Meds: No Currently Unemployed: No Education: High School Diploma/GED Difficulty w/ Childcare or Family Care: No Spiritual care concerns: No Meds Home Medications and Allergies Home Medications Medication Instructions Recorded Confirmed Type ferrous sulfate 325 mg (65 mg 325 mg PO DAILY 10/31/20 10/24/23 History iron) tablet (iron) magnesium 250 mg tablet 250 mg PO DAILY 10/31/20 10/24/23 History potassium 99 mg tablet 99 mg PO DAILY 10/31/20 10/24/23 History zinc 50 mg tablet 50 mg PO DAILY 10/31/20 10/24/23 History diclofenac sodium 1 % topical gel 2 g topical QID PRN Pain (Scale 08/17/23 10/24/23 History (Voltaren Arthritis Pain) Score 1-3) glucosamine [id number] 1 tablet PO DAILY 08/17/23 10/24/23 History teodoro 1,500 mg-400 unit-100 mg tablet (Osteo Bi-Flex (5-Loxin)) allopurinol 100 mg tablet 100 mg PO DAILY 10/24/23 10/24/23 History lisinopril 10 mg tablet 10 mg PO DAILY 10/24/23 10/24/23 History rosuvastatin 10 mg tablet 10 mg PO DAILY 10/24/23 10/24/23 History Allergies Allergy/AdvReac Type Severity Reaction Status Date / Time Penicillins Allergy Unknown unknown Verified 10/24/23 01:33 Vital Signs Vital Signs - 24 hr 10/24/23 01:21 10/24/23 01:32 10/24/23 04:12 Temperature 98.5 F Pulse Rate 96 93 72 Respiratory Rate 24 H 18 18 Blood Pressure 172/94 H 149/92 H 141/89 H Pulse Oximetry 99 98 98 Oxygen Delivery Room Air 10/24/23 06:09 10/24/23 05:50 10/24/23 08:00 Temperature 97.6 F Pulse Rate 74 Respiratory Rate 20 Blood Pressure 146/85 H Pulse
[2023-10-24] MEDS: PHENAZOPYRIDINE HCL 100 MG TABLET PO (16:38)
[2023-10-24] MEDS: oxyBUTYnin CHLORIDE 5 MG TABLET PO (16:38)
[2023-10-24 16:56] LABS: Glucose Point of Care 160 mg/dl (65-105)
[2023-10-24] MEDS: ACETAMINOPHEN 325 MG TABLET 650 MG PO (17:05)
[2023-10-24 20:44] LABS: Glucose Point of Care 191 mg/dl (65-105)
[2023-10-25] MEDS: oxyBUTYnin CHLORIDE 5 MG TABLET PO (00:14)
[2023-10-25 05:19] VITALS: BP 132/67; PULSE 63; RESP 18; TEMP 36.7; O2SAT 99
[2023-10-25 05:40] LABS: Hematocrit 37.4 % (42.0-52.0); Hemoglobin 12.7 g/dL (14.0-18.0); Mean Corpuscular Hemoglobin 30.5 pg (26-34); Mean Corpuscular Volume 89.9 fl (80-100); Mean Platelet Volume 11.1 fl (7.4-10.4); Platelet Count Result 176 k/mm3 (150-375); Red Blood Count 4.16 M/mm3 (4.6-6.20); Red Cell Distribution Width 11.9 % (11.5-14.5); White Blood Count 8.4 K/mm3 (4.5-10.0)
[2023-10-25 05:46] LABS: Alanine Aminotransferase 20 U/L (6-50); Albumin Level 3.4 g/dL (3.5-5.1); Alkaline Phosphatase 59 U/L (38-126); Anion Gap 10 mmol/L (8-16); Aspartate Amino Transferase 26 U/L (17-59); Bilirubin,Total 0.6 mg/dL (0.2-1.3); Blood Urea Nitrogen 12 mg/dL (9-20); Calcium 8.4 mg/dL (8.4-10.2); Carbon Dioxide 20 mmol/L (22-30); Chloride 104 mmol/L (98-107); Estimated CRCL calculation 94 ml/min; Estimated Glomerular Filt Rate > 60; Glucose 165 mg/dL (65-110); Potassium 3.3 mmol/L (3.4-5.0); Sodium 134 mmol/L (137-145)
[2023-10-25 08:02] LABS: Glucose Point of Care 180 mg/dl (65-105)
[2023-10-25] MEDS: FERROUS SULFATE 325 MG TABLET DR PO (08:44)
[2023-10-25] MEDS: allopurinoL 100 MG TABLET PO (08:44)
[2023-10-25] MEDS: lisinopriL 10 MG TABLET PO (08:44)
[2023-10-25] MEDS: ZINC SULFATE 220 MG CAPSULE PO (08:44)
[2023-10-25] MEDS: ROSUVASTATIN 10 MG TABLET PO (08:44)
[2023-10-25] MEDS: POTASSIUM CHLORIDE 20 MEQ ER TABLET 40 MEQ PO (08:44)
[2023-10-25] MEDS: MAGNESIUM OXIDE 200 MG TABLET PO (08:44)
--- NOTE | 2023-10-25 09:38 | WPDUROPN2 ---
Progress Note: A&P Assessment and Plan (1) Left ureteral stone: Code(s): N20.1 - Calculus of ureter Status: Acute Assessment and Plan: Noted to have 8 mm proximal left ureteral stone. Underwent cystoscopy with left retrograde pyelogram and left ureteral stent placement on 10/24/[address] Tan. Tolerated procedure well. Discussed temporary nature of stent and need for appropriate follow up for definitive stone management. Will obtain KUB to assess if stone is visible. (2) Calculus, kidney: Code(s): N20.0 - Calculus of kidney Status: Acute Assessment and Plan: CT demonstrates large right nonobstructing renal stones, largest measuring 18 mm. Consider elective treatement at a later date following treatment of left ureteral stone. (3) Abnormal urinalysis: Code(s): R82.90 - Unspecified abnormal findings in urine Status: Acute Assessment and Plan: UA is abnormal. Culture is pending. Continue empiric antibiotics while awaiting final results Subjective Subjective Date/Time Seen: 10/25/23 09:38 Interval history: Francisco is doing well today. He tolerated his procedure well yesterday. States overall pain is well controlled. He complains of some very mild intermittent left flank pain and pain at the tip of the penis with urination. States his urine is clear. He has been straining his urine without any stone fragments seen. He denies nausea, vomiting, fever, or chills. Tolerating his diet. Complains of diarrhea. WBC is within normal limits. Creatinine stable at 0.8. Urine culture is pending. Review of Systems Review of Systems: All systems reviewed & are unremarkable except as noted in HPI and below Exam Narrative: General: Awake, alert, comfortable, no acute distress HEENT: Normocephalic, atraumatic, sclerae anicteric Respiratory: Normal respiratory effort, no accessory muscle use Abdomen: Nondistended, soft, nontender Skin: Normal coloration, warm and dry Neurologic: No focal neuro deficits noted Psychiatric: Appropriate mood and affect, judgment and insight intact Objective Data Vital Signs Vital Signs: Vital Signs - 24 hr 10/24/23 12:00 10/24/23 13:28 10/24/23 13:43 Temperature 99.1 F 98.3 F Pulse Rate 64 76 67 Respiratory Rate 14 22 H 20 Blood Pressure 147/82 H 136/79 137/88 Pulse Oximetry 98 100 99 Oxygen Delivery Room Air Simple Face Mask Room Air Oxygen Flow Rate 8 10/24/23 13:58 10/24/23 14:13 10/24/23 14:40 Temperature 97.8 F Pulse Rate 66 65 67 Respiratory Rate 22 H 18 17 Blood Pressure 143/92 H 143/86 H 131/67 Pulse Oximetry 96 97 99 Oxygen Delivery Room Air Room Air Oxygen Flow Rate 10/24/23 19:45 10/24/23 20:43 10/25/23 05:19 Temperature 97.5 F L 98.0 F Pulse Rate 56 L 63 Respiratory Rate 20 18 Blood Pressure 121/72 132/67 Pulse Oximetry 99 99 Oxygen Delivery Room Air Oxygen Flow Rate Intake/Output Intake/Output: Intake & Output 10/22/23 10/23/23 10/24/23 10/25/23 23:59 23:59 23:59 23:59 Intake Total 2730 1140 Output Total 600 Balance 2130 1140 Meds/Results Medications: Active Medications Generic Name Dose Route Start Last Admin Trade Name Freq PRN Reason Stop Dose Admin Acetaminophen 650 mg 10/24/23 16:44 10/24/23 17:05 Acetaminophen 325 Mg Tablet PO 650 mg Q6H PRN Administration Mild Pain (1-3) or Fever Allopurinol 100 mg 10/25/23 09:00 10/25/23 08:44 Allopurinol 100 Mg Tablet PO 100 mg DAILY NAZIA Administration Dextrose 12.5 gm 10/24/23 07:00 Dextrose 50% 25 Gm/50 Ml Syringe IV PUSH PRN PRN Hypoglycemia Protocol Diclofenac Sodium 1 applic 10/24/23 14:14 Diclofenac Sodium 1% 100 Gm Gel (*Bkc) TOPICAL QID PRN Pain (Scale Score 1-3) Ferrous Sulfate 325 mg 10/24/23 09:00 10/25/23 08:44 Ferrous Sulfate [address] PO 325 mg DAILY NAZIA Administration Glucagon 1 mg 10/24/23 07:00 G
[2023-10-25 11:43] LABS: Glucose Point of Care 156 mg/dl (65-105)
--- NOTE | 2023-10-25 13:05 | PM.IMPN ---
Progress Note: A&P Assessment and Plan (1) Acute UTI: Code(s): N39.0 - Urinary tract infection, site not specified Status: Acute Assessment and Plan: Patient's urine is turbid, with 2+ blood, positive nitrates, 3+ leukocyte esterase, 21-50 rbc's, greater than 100 wbc's and 1+ bacteria. Patient does not have any previous urine to compare to. IV antibiotics initiated on 10/24/2023 Urine culture positive for Citrobacter koseri; sensitivities pending. Adjust antibiotic therapy to culture results (2) Left ureteral stone: Code(s): N20.1 - Calculus of ureter Status: Acute Assessment and Plan: CT showing a 8 mm left ureteral stone. Urology consulted. Postop day 1 stent placement (3) Diabetes mellitus: Qualifiers: Diabetes mellitus type: type 2 Diabetes mellitus terminal manager insulin use: without terminal manager use Diabetes mellitus complication status: without complication Qualified Code(s): E11.9 - Type 2 diabetes mellitus without complications Code(s): E11.9 - Type 2 diabetes mellitus without complications Status: Acute Assessment and Plan: Insulin Lispro sliding scale, Accu-checks qAc and HS Initiate hypoglycemic precautions Patient's previous A1c was done in September 2023 and was 9.1 Patient admitted that he does not take his metformin at home due to the side effects. Started patient on glipizide 5 mg daily (4) HTN (hypertension): Qualifiers: Hypertension type: essential hypertension Qualified Code(s): I10 - Essential (primary) hypertension Code(s): I10 - Essential (primary) hypertension Status: Acute Assessment and Plan: Continue home lisinopril Subjective Date/time seen: 10/25/23 13:05 Interval history: Patient doing much better after procedure. He is urinating without difficulty. He has very mild pain in the left flank. Urine cultures came back positive with sensitivities pending. He denies any hematuria or dysuria. Plan to discharge after sensitivities return. Most likely tomorrow. Exam Narrative: GENERAL: Comfortable, no acute distress HENMT: moist mucous membranes EYES: EOM intact b/l NECK: no lymphadenopathy RESPIRATORY: clear to auscultation CARDIO: RRR GI: soft, nontender, bowel sounds present SKIN: no rashes EXTREMITIES: no edema, redness or tenderness Objective Data Vital Signs Vital Signs: Vital Signs - 24 hr 10/24/23 13:28 10/24/23 13:43 10/24/23 13:58 Temperature 98.3 F Pulse Rate 76 67 66 Respiratory Rate 22 H 20 22 H Blood Pressure 136/79 137/88 143/92 H Pulse Oximetry 100 99 96 Oxygen Delivery Simple Face Mask Room Air Room Air Oxygen Flow Rate 8 10/24/23 14:13 10/24/23 14:40 10/24/23 19:45 Temperature 97.8 F Pulse Rate 65 67 Respiratory Rate 18 17 Blood Pressure 143/86 H 131/67 Pulse Oximetry 97 99 Oxygen Delivery Room Air Room Air Oxygen Flow Rate 10/24/23 20:43 10/25/23 05:19 Temperature 97.5 F L 98.0 F Pulse Rate 56 L 63 Respiratory Rate 20 18 Blood Pressure 121/72 132/67 Pulse Oximetry 99 99 Oxygen Delivery Oxygen Flow Rate Intake/Output Intake/Output: Intake & Output 10/22/23 10/23/23 10/24/23 10/25/23 23:59 23:59 23:59 23:59 Intake Total 2730 1380 Output Total 600 Balance 2130 1380 Meds/Results Medications: Active Medications Generic Name Dose Route Start Last Admin Trade Name Freq PRN Reason Stop Dose Admin Acetaminophen 650 mg 10/24/23 16:44 10/24/23 17:05 Acetaminophen 325 Mg Tablet PO 650 mg Q6H PRN Administration Mild Pain (1-3) or Fever Allopurinol 100 mg 10/25/23 09:00 10/25/23 08:44 Allopurinol 100 Mg Tablet PO 100 mg DAILY NAZIA Administration Dextrose 12.5 gm 10/24/23 07:00 Dextrose 50% 25 Gm/50 Ml Syringe IV PUSH PRN PRN Hypoglycemia Protocol Diclofenac Sodium 1 applic 10/24/23 14:14 Yari
[2023-10-25 13:41] VITALS: BP 133/63; PULSE 65; RESP 16; TEMP 38.3; O2SAT 96
--- NOTE | 2023-10-25 13:49 | PCCCNOTE ---
On 10/25/23, the student, [Kinga Moreno], provided care and completed [facility] documentation on this patient. I have reviewed the student's documentation and agree with the findings.
[2023-10-25 14:31] VITALS: TEMP 38.3
[2023-10-25] MEDS: ACETAMINOPHEN 325 MG TABLET 650 MG PO ×2 (14:31→20:47)
[2023-10-25 16:39] LABS: Glucose Point of Care 158 mg/dl (65-105)
[2023-10-25 19:53] VITALS: BP 119/73; PULSE 65; RESP 18; TEMP 37.6; O2SAT 98
[2023-10-25 20:35] LABS: Glucose Point of Care 219 mg/dl (65-105)
[2023-10-25 20:47] VITALS: TEMP 37.6
[2023-10-26 05:08] VITALS: BP 138/91; PULSE 73; RESP 17; TEMP 36.7; O2SAT 98
[2023-10-26] MEDS: allopurinoL 100 MG TABLET PO (08:25)
[2023-10-26] MEDS: FERROUS SULFATE 325 MG TABLET DR PO (08:25)
[2023-10-26] MEDS: glipiZIDE 5 MG TABLET PO (08:25)
[2023-10-26] MEDS: ROSUVASTATIN 10 MG TABLET PO (08:25)
[2023-10-26] MEDS: ZINC SULFATE 220 MG CAPSULE PO (08:25)
[2023-10-26] MEDS: MAGNESIUM OXIDE 200 MG TABLET PO (08:26)
[2023-10-26] MEDS: lisinopriL 10 MG TABLET PO (08:26)
[2023-10-26 08:37] LABS: Glucose Point of Care 164 mg/dl (65-105)
[2023-10-26 12:11] LABS: Glucose Point of Care 81 mg/dl (65-105)
--- NOTE | 2023-10-26 13:34 | PM.DS ---
DS: Admitting Diagnosis Discharge Date 10/26/2023 Admitting Diagnosis UTI/Ureteral Stone DS: Discharge Diagnosis Discharge Diagnosis (1) Acute UTI: Code(s): N39.0 - Urinary tract infection, site not specified Status: Acute (2) Left ureteral stone: Code(s): N20.1 - Calculus of ureter Status: Acute (3) Diabetes mellitus: Qualifiers: Diabetes mellitus complication status: without complication Diabetes mellitus skilled nursing insulin use: without exterminator helper termite use Diabetes mellitus type: type 2 Qualified Code(s): E11.9 - Type 2 diabetes mellitus without complications Code(s): E11.9 - Type 2 diabetes mellitus without complications Status: Acute (4) HTN (hypertension): Qualifiers: Hypertension type: essential hypertension Qualified Code(s): I10 - Essential (primary) hypertension Code(s): I10 - Essential (primary) hypertension Status: Acute Plan LT Ureteral Stone -Stent placed -strain all urine -left ESWL outpatient with Dr. Rawls. -encouraged oral hydration UTI -Bactrim PO x 10 days -Complete all ABX therapy DS: Summary Hospital Course Reason for hospitalization: UTI/Ureteral Stone Hospital Course: Chief Complaint: ? Left flank pain Narrative: This is a 63-year-old male with a past medical history of? uncontrolled diabetes, hypertension, hyperlipidemia and gout the presented to the ED on 10/24/2023 with chief complaint of left flank pain, diarrhea, nausea and vomiting.? Patient's symptoms started approximately 5 days ago.? He has history of kidney stones and has been dealing with them for at least 30 years. ? He believes that his symptoms were associated with kidney stone as well as flu-like symptoms. Patient thought that this stone will pass and selling but it did not.? COVID in flu test is negative.? CT abdomen pelvis revealing a 8 mm stone in the proximal left ureter with mild left hydronephrosis.? Patient's urine is turbid, with 2+ blood, positive nitrates, 3+ leukocyte esterase, 21-50 rbc's, greater than 100 wbc's and 1+ bacteria.? Patient started on IV antibiotics .? Due to ongoing diarrhea and nausea patient likely dehydrated started on IV fluids.? Urology consulted for ureteral stone. Patient admitted in the hospital and being treated for UTI and 8 mm left ureteral stone. Patient seen by urology and a ureteral stent was placed with plane for ESWL O/P. Patient remained hospitalized following the procedure pending urinary cultures. Patient seen following day in no acute distress culture resulted as citrobacter Koseri and susceptible to Bactrim. Patient was discharged home with 10 day course of POABX therapy and will follow-up with Urology for ESWL. Status at Discharge Functional status at discharge: independent ambulation Overall status at discharge: patient is back to baseline Time Spent with Patient Time attestation: Total time spent providing and/or coordinating discharge services: Time spent: Greater than 30 minutes Exam Narrative: GENERAL: Comfortable, no acute distress HENMT: moist mucous membranes EYES: EOM intact b/l NECK: no lymphadenopathy RESPIRATORY: clear to auscultation CARDIO: RRR GI: soft, nontender, bowel sounds present SKIN: no rashes EXTREMITIES: no edema, redness or tenderness DS: Data Data Completed and Pending Labs on day of discharge: Labs from last 24 hours 10/26/23 10/26/23 10/25/23 12:08 08:35 20:32 POC Capillary Glucose 81 164 H 219 H 10/25/23 16:37 POC Capillary Glucose 158 H Preliminary micro results at discharge 10/24/23 03:59 Blood Culture - Preliminary Blood 10/24/23 04:00 Blood Culture - Preliminary Blood Imaging Radiologist's impression: ABD XRAY IMPRESSION: 1. 5 mm stone in proximal left ureter. 2. 18 mm and 3 mm stones in right kidney. EXAMINATION: XR retrograde pyelo w/stent LT DATE: 10/24/2023 13:27 INDICATION: Left ureteral sten
--- NOTE | 2023-10-26 13:57 | WPDUROPN2 ---
Progress Note: A&P Assessment and Plan (1) Left ureteral stone: Code(s): N20.1 - Calculus of ureter Status: Acute Assessment and Plan: Noted to have 8 mm proximal left ureteral stone. Underwent cystoscopy with left retrograde pyelogram and left ureteral stent placement on 10/24/[address] Tan. Tolerated procedure well. Discussed temporary nature of stent and need for appropriate follow up for definitive stone management. KUB completed on 10/25/2023 shows visible proximal left ureteral stone and stent in expected position. Will plan for left ESWL as an outpatient with Dr. Rawls. (2) Calculus, kidney: Code(s): N20.0 - Calculus of kidney Status: Acute Assessment and Plan: CT demonstrates large right nonobstructing renal stones, largest measuring 18 mm. Consider elective treatement at a later date following treatment of left ureteral stone. (3) Acute UTI: Code(s): N39.0 - Urinary tract infection, site not specified Status: Acute Assessment and Plan: Urine culture with growth of Citrobacter koseri. Continue oral antibiotics for 1 week tailored to final culture result per primary team. Subjective Subjective Date/Time Seen: 10/26/23 13:57 Interval history: Francisco is feeling improved today. He denies flank pain or back pain. States his urine is clear. Denies dysuria or hematuria. Denies bladder spasms. Denies fever, chills, nausea, vomiting. He had low-grade fever yesterday, but has remained afebrile today and vital signs are stable. Review of Systems Review of Systems: All systems reviewed & are unremarkable except as noted in HPI and below Exam Narrative: General: Awake, alert, comfortable, no acute distress HEENT: Normocephalic, atraumatic, sclerae anicteric Respiratory: Normal respiratory effort, no accessory muscle use Abdomen: Nondistended, soft, nontender Skin: Normal coloration, warm and dry Neurologic: No focal neuro deficits noted Psychiatric: Appropriate mood and affect, judgment and insight intact Objective Data Vital Signs Vital Signs: Vital Signs - 24 hr 10/25/23 14:31 10/25/23 19:53 10/25/23 19:58 Temperature 100.9 F H 99.6 F Pulse Rate 65 Respiratory Rate 18 Blood Pressure 119/73 Pulse Oximetry 98 Oxygen Delivery Room Air 10/25/23 20:47 10/26/23 05:08 10/26/23 08:00 Temperature 99.6 F 98.1 F Pulse Rate 73 Respiratory Rate 17 Blood Pressure 138/91 H Pulse Oximetry 98 Oxygen Delivery Room Air Intake/Output Intake/Output: Intake & Output 10/23/23 10/24/23 10/25/23 10/26/23 23:59 23:59 23:59 23:59 Intake Total 2730 2870 490 Output Total 600 Balance 2130 2870 490 Meds/Results Medications: Active Medications Generic Name Dose Route Start Last Admin Trade Name Freq PRN Reason Stop Dose Admin Acetaminophen 650 mg 10/24/23 16:44 10/25/23 20:47 Acetaminophen 325 Mg Tablet PO 650 mg Q6H PRN Administration Mild Pain (1-3) or Fever Allopurinol 100 mg 10/25/23 09:00 10/26/23 08:25 Allopurinol 100 Mg Tablet PO 100 mg DAILY NAZIA Administration Dextrose 12.5 gm 10/24/23 07:00 Dextrose 50% 25 Gm/50 Ml Syringe IV PUSH PRN PRN Hypoglycemia Protocol Diclofenac Sodium 1 applic 10/24/23 14:14 Diclofenac Sodium 1% 100 Gm Gel (*Bkc) TOPICAL QID PRN Pain (Scale Score 1-3) Ferrous Sulfate 325 mg 10/24/23 09:00 10/26/23 08:25 Ferrous Sulfate [address] PO 325 mg DAILY NAZIA Administration Glipizide 5 mg 10/26/23 06:30 10/26/23 08:25 Glipizide 5 Mg Tablet PO 5 mg DAILY@0630 NAZIA Administration Glucagon 1 mg 10/24/23 07:00 Glucagon For Inj 1 Mg Vial IM PRN PRN Hypoglycemia Protocol Glucose 15 gm 10/24/23 07:00 Glucose Oral Gel 15 Gm Of Glucse In 37.5 Gm Tube PO PRN PRN Hypoglycemia Protocol Ceftriaxone Sodium 1 gm in 50 mls @ 100 mls/hr
== END 2023-10-26 14:10 | disposition home or self-care (01) ==
LOC: ANHED 04:38 → ANH2MED 05:35
PROVIDERS: Emergency Medicine; Internal Medicine Critical Care Medicine; Urology; Admitting Provider Internal Medicine; Emergency Provider Physician Assistant; PCP Emergency Medicine; Visit Provider Internal Medicine
PROC: (CPT 52352; principal; 2023-10-24 13:00)
DX: N13.2 Hydronephrosis with renal and ureteral calculous obstruction (principal); N39.0 Urinary tract infection, site not specified; B96.89 Other specified bacterial agents as the cause of diseases classified elsewhere; E11.9 Type 2 diabetes mellitus without complications; I10 Essential (primary) hypertension; K44.9 Diaphragmatic hernia without obstruction or gangrene; Z20.822 Contact with and (suspected) exposure to COVID-19; N40.0 Benign prostatic hyperplasia without lower urinary tract symptoms; E78.2 Mixed hyperlipidemia; M10.9 Gout, unspecified; F17.210 Nicotine dependence, cigarettes, uncomplicated; G47.33 Obstructive sleep apnea (adult) (pediatric); Z99.89 Dependence on other enabling machines and devices; E66.9 Obesity, unspecified; Z68.31 Body mass index [BMI] 31.0-31.9, adult; Z84.1 Family history of disorders of kidney and ureter; F10.90 Alcohol use, unspecified, uncomplicated; F12.90 Cannabis use, unspecified, uncomplicated; Z79.84 Long term (current) use of oral hypoglycemic drugs; Z79.4 Long term (current) use of insulin; Z79.85 Long-term (current) use of injectable non-insulin antidiabetic drugs; Z79.899 Other long term (current) drug therapy
CPT/HCPCS: 52332; 36415; 74018; 74176; 74420; 80053; 81001; 82948; 83605; 85025; 85027; 87040; 87045; 87077; 87086; 87186; 87427; 87449; 87636; 96361; 96365; 96375; 99285; A9270; C1758; C1769; C2617; G0378; J0696; J2250; J2270; J2405; J3010; J7030; J7120; Q9966

== ENCOUNTER 2023-11-03 07:43 | Outpatient (CLI) | payer BC, SELFPAY ==
--- NOTE | 2023-11-03 08:01 | ECG_ITS ---
Measurements Intervals [place] Rate: 81 P: 82 AL: 131 QRS: 6 QRSD: 90 T: -13 QT: 393 QTc: 457 Interpretive Statements SINUS RHYTHM NONSPECIFIC T-WAVE ABNORMALITY ABNORMAL ECG NO PREVIOUS ECG AVAILABLE FOR COMPARISON Electronically Signed On 11-03-2023 12:40:05 RN LABOR AND DELIVERY by Vickey King M.D.
[2023-11-03 08:37] LABS: Appearance Urine Turbid (Clear); Bacteria Urine None Seen /hpf; Bilirubin Urine 1+ (Negative); Blood Urine 3+ (Negative); Color Urine Orange (Yellow); Glucose Urine UA Negative (Negative); Hyaline Casts Urine Present /lpf; Ketones Urine 1+ mg/dL (Negative); Leukocyte Esterase Ur 2+ LEU/UL (Negative); Need Manual Microscopic Reviewed; Nitrate Urine Negative (Negative); Protein Urine 3+ mg/dL (Negative); RBC Urine >100 /hpf (0-2); Specific Grav Ur 1.023 (1.001-1.035); Squamous Epithelial Cell Urine None seen /hpf (Few); WBC Urine >100 /hpf; pH Urine 5.5 (5.0-9.0)
[2023-11-03 08:38] LABS: Add Urine Microscopic? YES
[2023-11-03 08:44] LABS: Prothrombin Time 13.3 Seconds (11.1-14.7)
== END 2023-11-03 07:44 | disposition home or self-care (01) ==
LOC: ANHSURGERY 07:48
PROVIDERS: PCP Emergency Medicine; Visit Provider Urology
DX: N20.1 Calculus of ureter (principal); I10 Essential (primary) hypertension; Z01.818 Encounter for other preprocedural examination; R94.31 Abnormal electrocardiogram [ECG] [EKG]
CPT/HCPCS: 36415; 81001; 85610; 85730; 87086; 93005

== ENCOUNTER 2023-11-04 06:34 | Day surgery (SDC) | payer BC, SELFPAY ==
[2023-11-01 12:53] VITALS: BMI 31.7
--- NOTE | 2023-11-01 13:00 | PC.NURSE ---
Report to the Outpatient Waiting Room, entrance under the green pavilion located off [facility], at time 6:00 on date 11/04/23. Planned Procedure Time: 7:30. Time changes happen often and if your time is changed the preop area will call you the afternoon before. - You and your visitor will be asked to self-screen and do not enter if you have any COVID symptoms. - A mask is optional within the hospital at this time. Patients may have clear liquids (water, carbonated beverages, clear teas, apple juice) until 3 hours prior to surgery (4:30) with a maximum of 20 ounces. - No food from midnight until time of surgery Take the following medications with a SIP of water the morning of surgery: ANTIBIOTIC DO NOT STOP ANY OF YOUR OTHER PRESCRIPTION MEDICATIONS PRIOR TO SURGERY ?EXCEPT THE FOLLOWING Medications to discontinue per physician: VITAMINS/SUPPLEMENTS Date to take last dose: NO MORE UNTIL AFTER SURGERY Please no make-up, nail iraqi, hairspray, perfume, deodorant, or body powder the day of surgery. No jewelry (including any body piercings) or valuables the day of surgery, leave them at home. Please take a shower or bath the night before, or the morning of, surgery with an antibacterial soap. Wear comfortable, loose fitting clothing. - Jewelry must be removed prior to entering the operating room. Rings and piercings that are not removed may be cut off. - The hospital will not accept responsibility for valuables. - Please leave all valuables, including medications, at home the day of surgery. If you are going home after surgery, a licensed route sales delivery driver must drive you home. - NO public transportation without another adult if you receive anesthesia. - We recommend that an adult stay with you for 24 hours following discharge. - We also recommend that you do not drive, make important decision, drink alcoholic beverages, or take any drugs that were not prescribed by your health care provider for at least 24 hours after your discharge time. Follow any additional instructions given to you from your surgeon. If you or anyone in your household have experienced Covid symptoms in the past week, please notify your surgeon or the nurse liaison at the phone number below for possible testing. Telephone instructions given to PT Brenda GIL TAKE and asked if any additional questions and then verbalized understanding. Patient advised to call surgeon office or pre surgery nurse liaison [phone] if any additional questions.
[2023-11-04] VITALS (8 sets, daily range): BP systolic 95–115; BP diastolic 66–82; PULSE 63–71; RESP 14–16; TEMP 36.6–36.7; O2SAT 94–100
--- NOTE | ~2023-11-04 | XR_ITS ---
Supine and upright views of the abdomen Clinical history: Lithotripsy COMPARISON: 10/25/2023 Findings: Bowel gas pattern is nonspecific. No evidence for obstruction or free air. Large right lowe r pole renal stone is unchanged. Left ureteral stent present. There is a 7 mm stone adjacent to the v unique proximal left ureteral stent. Osseous structures are intact. Impression: Stable large right lower pole renal stone. 7 mm stone adjacent to the proximal portion of left ureteral stent. Reviewed, dictated and finalized at location . ER MAN Impression: Stable large right lower pole renal stone. 7 mm stone adjacent to the proximal portion of left ureteral stent.
[2023-11-04] MEDS: LACTATED RINGERS 1,000 ML 30 ML IV CONT (06:50)
[2023-11-04 06:57] LABS: Glucose Point of Care 145 mg/dl (65-105)
--- NOTE | 2023-11-04 07:14 | WPDHPUPDATE1 ---
History and Physical Update Update Date/Time: 11/04/23 07:14 History and Physical has been reviewed, including an updated exam of the patient. There are NO changes in the patient's condition. Risks, benefits, and alternatives have been discussed and questions answered. Patient agrees to proceed with procedure. Proceed with left ureteral eswl
--- NOTE | 2023-11-04 07:20 | WPDANESEPPF ---
Anes - Initial Pre Proc Eval Procedure: Operation Date: 11/04/23 07:30 Proposed Procedures p Left Extracorporeal Shock Wave Lithotripsy - William Rawls MD s Possible Cystoscopy with Left Stent Removal and Left Stent Replacement - William Rawls MD Date/Time: 11/04/23 07:20 Surgeon: William Rawls MD Pre Op Diagnosis: left ureteral stone Patient Data Age: 63 Gender: M Height: 1.75 m Weight: 97.55 kg Allergies Allergy/AdvReac Type Severity Reaction Status Date / Time Penicillins Allergy Unknown Hives Verified 11/01/23 12:52 Home Medications Medication Instructions Recorded Confirmed Type ferrous sulfate 325 mg (65 mg 325 mg PO DAILY 10/31/20 11/01/23 History iron) tablet (iron) magnesium 250 mg tablet 250 mg PO DAILY 10/31/20 11/01/23 History potassium 99 mg tablet 99 mg PO DAILY 10/31/20 11/01/23 History zinc 50 mg tablet 50 mg PO DAILY 10/31/20 11/01/23 History diclofenac sodium 1 % topical gel 2 g topical QID PRN Pain (Scale 08/17/23 11/01/23 History (Voltaren Arthritis Pain) Score 1-3) glucosamine TUn-O0-Irysokteg 1 tablet PO DAILY 08/17/23 11/01/23 History teodoro 1,500 mg-400 unit-100 mg tablet (Osteo Bi-Flex (5-Loxin)) allopurinol 100 mg tablet 100 mg PO DAILY 10/24/23 11/01/23 History lisinopril 10 mg tablet 10 mg PO DAILY 10/24/23 11/01/23 History rosuvastatin 10 mg tablet 10 mg PO DAILY 10/24/23 11/01/23 History glipizide 5 mg tablet 5 mg PO DAILY@0630 #30 tabs 10/26/23 11/01/23 Rx oxybutynin chloride 5 mg tablet 5 mg PO TID PRN Dysuria #15 tabs 10/26/23 11/01/23 Rx sulfamethoxazole 800 1 tablet PO Q12H #20 tabs 10/26/23 11/01/23 Rx mg-trimethoprim 160 mg tablet (Bactrim DS) Laboratory Tests 11/04/23 06:53 POC Capillary Glucose 145 H mg/dl (65-105) Patient hx anesthesia problems: none Family hx anesthesia problems: none Results Review: All pre-operative results and documents have been reviewed as part of the pre-operative evaluation. FOR[facility]LY [facility], [facility] Past Medical History Medical History (Updated 10/24/23 @ 13:47 by Liza Nelson PA-C) Diabetes mellitus HTN (hypertension) Mixed hyperlipidemia ANGY on CPAP Surgical History Surgical History H/O lithotripsy Family History Family History Father Family history of arthritis History of blood clots Cerebrovascular accident Renal stones Mother Renal stones Sibling Renal stones Social History Social History (Updated 10/24/23 @ 13:49 by Liza Nelson PA-C) Social History: Patient with history of chewing tobacco. Patient chewed tobacco for approximately 25 years and quit 7 years ago. Smoking status: Former smoker Tobacco type: smokeless tobacco Smokeless tobacco user: chewing tobacco Alcohol intake: current Drinks per week: 3 Alcohol use details: RARE Substance use: current Substance use type: marijuana Do You Feel Safe in your Home?: Yes Lack of Transportation: No Lack of Food: Never True Current Housing: I Have Housing Concerned About Future Housing: No Difficulty Paying Gas/Electric Bills: No Difficulty Paying for Meds: No Currently Unemployed: No Education: High School Diploma/GED Difficulty w/ Childcare or Family Care: No Living arrangements: with family Spiritual care concerns: No Anes - Eval Final PreProcedure Day of Procedure 11/04/23 07:20 Patient weight: obese Airway: Mallampati scale class II ASA classification: III Anesthesia type and monitoring: general LMA and standard monitoring Results Review: All pre-operative results and documents have been reviewed as part of the pre-operative evaluation. Informed Consent: The patient's anesthetic plan and its attendant risks and benefits were discussed with the patient/family/POA. Questions were solicited and answers provided to the satisfaction o
[2023-11-04] MEDS: ceFAZolin 2 GM/D5W 50 ML 2 GM/50 ML BAG IVPB (07:25)
--- NOTE | 2023-11-04 08:17 | W.PM.PROC2 ---
Procedure Note - Detailed Date of Procedure 11/04/23 Pre-op Diagnosis left ureteral stone Post-op Diagnosis Same Procedure Performed Lithotripsy of left ureteral hyretgyj-8-6 mm Surgeon William Rawls MD Anesthesia General Description of Procedure Patient was taken to the operative suite correctly identified. Once anesthesia was obtained the stone was localized in both planes. It was a proximal stone/upj thus 2500 shocks were given to it. There appeared to be fragmentation. Patient tolerated procedure well without any complications and was taken recovery stable condition. He will follow-up in 7-10 days with a KUB. This completes dictation. Please send a copy of op to my office Estimated Blood Loss 0 Drains Yes (Patient has left ureteral stent) Packing No Pathology None sent Complications No immediate complications Condition Stable Disposition PACU
[2023-11-04 08:21] LABS: Glucose Point of Care 162 mg/dl (65-105)
== END 2023-11-04 10:00 | disposition home or self-care (01) ==
PROVIDERS: PCP Emergency Medicine; Visit Provider Urology
PROC: (CPT 50590; principal; 2023-11-04 07:30)
DX: N20.1 Calculus of ureter (principal); E11.9 Type 2 diabetes mellitus without complications; I10 Essential (primary) hypertension; E78.2 Mixed hyperlipidemia; G47.33 Obstructive sleep apnea (adult) (pediatric); Z79.84 Long term (current) use of oral hypoglycemic drugs; Z87.891 Personal history of nicotine dependence; F12.90 Cannabis use, unspecified, uncomplicated; E66.9 Obesity, unspecified; Z68.30 Body mass index [BMI] 30.0-30.9, adult
CPT/HCPCS: 50590; 74018; 82948; J0690; J1100; J2250; J2371; J2405; J2704; J3010; J7030; J7120

== ENCOUNTER 2023-11-17 12:39 | Outpatient (CLI) | payer BC, SELFPAY ==
--- NOTE | ~2023-11-17 | XR_ITS ---
EXAMINATION: XR abdomen/kub 1V INDICATION: Left ureteral stone TECHNIQUE: Supine views of the abdomen were obtained on 2 radiographs. COMPARISON: 11/04/2023 FINDINGS: A left internal ureteral stent is in expected position. There is a 7 mm stone adjacent to t he proximal stent projecting between the left L3 and L4 transverse processes which demonstrate slight interval distal migration since the comparison examination. No additional left-sided stones are iden tified. There is a 1.7 cm stone of the right kidney lower pole. The bowel gas pattern is normal. IMPRESSION: 1. Left internal ureteral stent in expected position with 6 mm to adjacent to the stent demonstrating slight interval distal migration. 2. Stable nephrolithiasis of the right kidney lower pole. Reviewed, dictated and finalized at location F. LATOR OPERATOR IMPRESSION: 1. Left internal ureteral stent in expected position with 6 mm to adjacent to t he stent demonstrating slight interval distal migration. 2. Stable nephrolithiasis of the right kidney lower pole.
== END 2023-11-17 12:40 | disposition home or self-care (01) ==
LOC: ANHIMG 12:41
PROVIDERS: PCP Emergency Medicine; Visit Provider Urology
DX: N20.1 Calculus of ureter (principal)
CPT/HCPCS: 74018

== ENCOUNTER 2023-11-29 01:57 | Day surgery (SDC) | payer BC, SELFPAY ==
[2023-11-25 11:45] VITALS: BMI 30.6
--- NOTE | 2023-11-25 11:49 | PC.NURSE ---
Report to the Outpatient Waiting Room, entrance under the green pavilion located off [facility], at time 1015 on date 11/29/23. Planned Procedure Time: 1215. Time changes happen often and if your time is changed the preop area will call you the afternoon before. - You and your visitor will be asked to self-screen and do not enter if you have any COVID symptoms. - A mask is optional within the hospital at this time. Patients may have clear liquids (water, carbonated beverages, clear teas, apple juice) until 3 hours prior to surgery with a maximum of 20 ounces. - No food from midnight until time of surgery Take the following medications with a SIP of water the morning of surgery: TRAMADOL IF NEEDED DO NOT STOP ANY OF YOUR OTHER PRESCRIPTION MEDICATIONS PRIOR TO SURGERY ?EXCEPT THE FOLLOWING Medications to discontinue per physician: VITAMINS/SUPPLEMENTS Date to take last dose: 11/25/23 Please no make-up, nail maori, hairspray, perfume, deodorant, or body powder the day of surgery. No jewelry (including any body piercings) or valuables the day of surgery, leave them at home. Please take a shower or bath the night before, or the morning of, surgery with an antibacterial soap. Wear comfortable, loose fitting clothing. - Jewelry must be removed prior to entering the operating room. Rings and piercings that are not removed may be cut off. - The hospital will not accept responsibility for valuables. - Please leave all valuables, including medications, at home the day of surgery. If you are going home after surgery, a licensed local tanker truck driver must drive you home. - NO public transportation without another adult if you receive anesthesia. - We recommend that an adult stay with you for 24 hours following discharge. - We also recommend that you do not drive, make important decision, drink alcoholic beverages, or take any drugs that were not prescribed by your health care provider for at least 24 hours after your discharge time. Follow any additional instructions given to you from your surgeon. If you or anyone in your household have experienced Covid symptoms in the past week, please notify your surgeon or the nurse liaison at the phone number below for possible testing. Telephone instructions given to PT Brenda GIL TAKE and asked if any additional questions and then verbalized understanding. Patient advised to call surgeon office or pre surgery nurse liaison [phone] if any additional questions.
--- NOTE | 2023-11-28 13:08 | WPDANESEPPF ---
Anes - Initial Pre Proc Eval Procedure: Operation Date: 11/29/23 12:15 Proposed Procedures p Cystoscopy, Left Ureteroscopy, Left Stone Extraction with Holmium Laser, Possible Retrograde Pyelogram, Possible Left Stent Removal/Replacement - William Rawls MD Date/Time: 11/28/23 13:08 Surgeon: William Rawls MD Pre Op Diagnosis: Lt Ureteral Stone Patient Data Age: 63 Gender: M Height: 1.75 m Weight: 94 kg Allergies Allergy/AdvReac Type Severity Reaction Status Date / Time Penicillins Allergy Unknown Hives Verified 11/29/23 10:42 Home Medications Medication Instructions Recorded Confirmed Type ferrous sulfate 325 mg (65 mg 325 mg PO DAILY 10/31/20 11/25/23 History iron) tablet (iron) magnesium 250 mg tablet 250 mg PO DAILY 10/31/20 11/25/23 History potassium 99 mg tablet 99 mg PO DAILY 10/31/20 11/25/23 History zinc 50 mg tablet 50 mg PO DAILY 10/31/20 11/25/23 History diclofenac sodium 1 % topical gel 2 g topical QID PRN Pain (Scale 08/17/23 11/25/23 History (Voltaren Arthritis Pain) Score 1-3) glucosamine [id number] 1 tablet PO DAILY 08/17/23 11/25/23 History teodoro 1,500 mg-400 unit-100 mg tablet (Osteo Bi-Flex (5-Loxin)) allopurinol 100 mg tablet 100 mg PO DAILY 10/24/23 11/25/23 History lisinopril 10 mg tablet 10 mg PO DAILY 10/24/23 11/25/23 History rosuvastatin 10 mg tablet 10 mg PO DAILY 10/24/23 11/25/23 History glipizide 5 mg tablet 5 mg PO DAILY@0630 #30 tabs 10/26/23 11/25/23 Rx oxybutynin chloride 5 mg tablet 5 mg PO TID PRN Dysuria #15 tabs 10/26/23 11/25/23 Rx tramadol 50 mg tablet 50 mg PO Q6H PRN pain #20 tabs 11/04/23 11/25/23 Rx semaglutide 0.25 mg or 0.5 mg (2 0.25 mg (0.368 mL) subcut .COMPLEX 11/18/23 11/25/23 Rx mg/3 mL) subcutaneous pen injector #3 mL (Ozempic) mirabegron 25 mg tablet,extended 25 mg PO DAILY 11/25/23 11/25/23 History release 24 hr (Myrbetriq) Patient hx anesthesia problems: none Family hx anesthesia problems: none Results Review: All pre-operative results and documents have been reviewed as part of the pre-operative evaluation. [facility] Past Medical History Medical History (Updated 11/28/23 @ 13:09 by Attila Salcedo DO) Anxiety Diabetes mellitus HTN (hypertension) Mixed hyperlipidemia ANGY on CPAP Surgical History Surgical History H/O lithotripsy Family History Family History Father Family history of arthritis History of blood clots Cerebrovascular accident Renal stones Mother Renal stones Sibling Renal stones Social History Social History (Updated 10/24/23 @ 13:49 by Liza Nelson PA-C) Social History: Patient with history of chewing tobacco. Patient chewed tobacco for approximately 25 years and quit 7 years ago. Smoking status: Former smoker Tobacco type: smokeless tobacco Smokeless tobacco user: chewing tobacco Alcohol intake: current Drinks per week: 3 Alcohol use details: RARE Substance use: current Substance use type: marijuana Do You Feel Safe in your Home?: Yes Lack of Transportation: No Lack of Food: Never True Current Housing: I Have Housing Concerned About Future Housing: No Difficulty Paying Gas/Electric Bills: No Difficulty Paying for Meds: No Currently Unemployed: No Education: High School Diploma/GED Difficulty w/ Childcare or Family Care: No Living arrangements: with family Spiritual care concerns: No Anes - Eval Final PreProcedure Day of Procedure 11/28/23 13:08 Patient weight: obese Heart: regular rate and rhythm Lungs: clear to auscultation Airway: Mallampati scale class II Neurological: alert and oriented Last oral intake: >/= 8 hours ASA classification: III Emergent: no Anesthetic plan: proceed Anesthesia type and monitoring: general LMA and standard monitoring Results Review: All pre-operati
--- NOTE | ~2023-11-29 | XR_ITS ---
EXAMINATION: XR retrograde pyelo w/stent LT DATE: 11/29/2023 11:45 CDT INDICATION: LEFT CYSTO, RETRO, LASER STONE EXTRACT WITH STENT EXCHANGE . TECHNIQUE: 7 fluoroscopic images of the pelvis and left abdomen were obtained during left cystoscopy, retrograde pyelography, laser stone extraction and stent exchange, performed by William parry MD. I was not present during the procedure. Fluoroscopy exposure time was 15.1 seconds. DAP 0.3031 7 mGym2. COMPARISON: None FINDINGS/IMPRESSION: Fluoroscopic documentation of left cystoscopy, retrograde pyelography, laser stone extraction and allan nt exchange. Please refer to the operative note for complete procedural details. Reviewed, dictated and finalized at location K.
--- NOTE | 2023-11-29 09:54 | WPDHPUPDATE1 ---
History and Physical Update Update Date/Time: 11/29/23 09:54
--- NOTE | 2023-11-29 09:56 | WPDHPUPDATE1 ---
History and Physical Update Update Date/Time: 11/29/23 09:56 History and Physical has been reviewed, including an updated exam of the patient. There are NO changes in the patient's condition. Risks, benefits, and alternatives have been discussed and questions answered. Patient agrees to proceed with procedure. Proceed with cysto, left retrograde pyelogram, left ureteroscopy with stone extraction, possible laser, stent exchange
[2023-11-29 10:33] LABS: Glucose Point of Care 156 mg/dl (65-105)
[2023-11-29 10:36] VITALS: BP 120/98; PULSE 84; RESP 14; TEMP 36.9; O2SAT 97
[2023-11-29] MEDS: LACTATED RINGERS 1,000 ML 30 ML IV CONT (10:41)
[2023-11-29] MEDS: ceFAZolin 2 GM/D5W 50 ML 2 GM/50 ML BAG IVPB (12:04)
[2023-11-29] MEDS: LIDOCAINE HCL 2% GEL UROJET 10 ML PKG MUCOUS MEM (12:16)
--- NOTE | 2023-11-29 12:44 | P.OP_ITS ---
Procedure Note - Detailed Date of Procedure 11/29/23 Pre-op Diagnosis Lt Ureteral Stone Post-op Diagnosis Same Procedure Performed Cystoscopy, left retrograde pyelogram, left ureteroscopy with holmium laser, stone extraction, left ureteral stent placement exchange 4.8 [place] contour Surgeon William Rawls MD Anesthesia General Description of Procedure Patient is taken to the operative suite correctly identified. Once anesthesia was obtained was placed in dorsal lithotomy position and prepped draped usual sterile fashion. Twenty-two [place] scope was inserted the bladder. The prior stent was retrieved and brought out to the meatus. Sensor wire was passed through it. Ureteral access sheath was placed. Mini flexible ureteral scope was inserted. Stone was too large to retrieve. Using 200 micron fiber I lasered the stone in multiple small pieces. These were grasped with an escape basket. Reinspection revealed no residual stones. Pyelogram was then performed to confirm placement of the stent. 4.8 [place] contour stent was then placed with the proximal end coiled in the left renal pelvis and the distal in the bladder. Bladder was drained. 2% viscous lidocaine was inserted into the urethra patient is taken recovery stable condition. He will follow-up in a week's time for stent removal. This completes dictation. Please send a copy of op note to my office. Estimated Blood Loss 0 Drains Yes Packing No Pathology Yes Complications No immediate complications Condition Stable Disposition PACU
[2023-11-29 12:47] VITALS: BP 147/101; PULSE 74; RESP 17; TEMP 36.6; O2SAT 100
[2023-11-29 13:02] VITALS: BP 149/97; PULSE 73; RESP 14; O2SAT 99
[2023-11-29 13:04] LABS: Glucose Point of Care 132 mg/dl (65-105)
[2023-11-29 13:17] VITALS: BP 151/92; PULSE 71; RESP 12; O2SAT 98
[2023-11-29 13:40] VITALS: BP 150/95; PULSE 74
[2023-11-29] MEDS: oxyCODONE HCL (*CRX) 5 MG TAB IR PO (13:52)
[2023-11-29 14:10] VITALS: BP 136/85; PULSE 66
== END 2023-11-29 14:22 | disposition home or self-care (01) ==
PROVIDERS: PCP Emergency Medicine; Visit Provider Urology
PROC: (CPT 52352; principal; 2023-11-29 12:15)
DX: N20.1 Calculus of ureter (principal); E11.9 Type 2 diabetes mellitus without complications; I10 Essential (primary) hypertension; E78.2 Mixed hyperlipidemia; G47.33 Obstructive sleep apnea (adult) (pediatric); F41.9 Anxiety disorder, unspecified; Z87.891 Personal history of nicotine dependence; E66.9 Obesity, unspecified; Z68.30 Body mass index [BMI] 30.0-30.9, adult; Z79.84 Long term (current) use of oral hypoglycemic drugs; Z79.85 Long-term (current) use of injectable non-insulin antidiabetic drugs
CPT/HCPCS: 52356; 74420; 82365; 82948; 88300; A9270; C1758; C1769; C2617; J0690; J2250; J3010; J7120; Q9966

== ENCOUNTER 2024-01-05 09:30 | Outpatient (CLI) | payer BC, SELFPAY ==
[2024-01-05 10:28] LABS: Hemoglobin A1C 7.4 % (<5.7)
[2024-01-05 10:32] LABS: Alanine Aminotransferase 22 U/L (6-50); Albumin Level 4.8 g/dL (3.5-5.1); Alkaline Phosphatase 62 U/L (38-126); Anion Gap 10 mmol/L (4-12); Aspartate Amino Transferase 25 U/L (17-59); Bilirubin,Total 0.7 mg/dL (0.2-1.3); Blood Urea Nitrogen 23 mg/dL (9-20); Calcium 10.1 mg/dL (8.4-10.2); Carbon Dioxide 26 mmol/L (22-30); Chloride 106 mmol/L (98-107); Cholesterol 130 mg/dL (0-200); Estimated Glomerular Filt Rate > 60; Glucose 123 mg/dL (65-110); HDL Direct 41 mg/dL; Potassium 4.4 mmol/L (3.4-5.0); Sodium 142 mmol/L (137-145); Triglycerides 81 mg/dL (<150)
[2024-01-05 10:35] LABS: Creatinine Urine 115.3 mg/dL
[2024-01-05 10:40] LABS: Microalbumin Urine Random 43.8 mg/L (0-16.7)
[2024-01-05 10:44] LABS: LDL Cholesterol Direct 72 mg/dL
== END 2024-01-05 09:31 | disposition home or self-care (01) ==
LOC: ANHLAB 09:34
PROVIDERS: PCP Emergency Medicine; Visit Provider Emergency Medicine
DX: E78.5 Hyperlipidemia, unspecified (principal); E55.9 Vitamin D deficiency, unspecified; E11.9 Type 2 diabetes mellitus without complications
CPT/HCPCS: 36415; 80053; 80061; 82043; 82306; 83036

== ENCOUNTER 2024-06-26 08:42 | Outpatient (CLI) | payer BC, SELFPAY ==
[2024-06-26 09:26] LABS: Hemoglobin A1C 6.9 % (<5.7)
[2024-06-26 09:28] LABS: Alanine Aminotransferase 31 U/L (6-50); Albumin Level 4.2 g/dL (3.5-5.1); Alkaline Phosphatase 58 U/L (38-126); Anion Gap 10 mmol/L (4-12); Aspartate Amino Transferase 31 U/L (17-59); Bilirubin,Total 0.8 mg/dL (0.2-1.3); Blood Urea Nitrogen 28 mg/dL (9-20); Calcium 9.3 mg/dL (8.4-10.2); Carbon Dioxide 29 mmol/L (22-30); Chloride 100 mmol/L (98-107); Cholesterol 141 mg/dL (0-200); Estimated Glomerular Filt Rate > 60; Glucose 210 mg/dL (65-110); HDL Direct 43 mg/dL; Potassium 4.5 mmol/L (3.4-5.0); Sodium 139 mmol/L (137-145); Triglycerides 120 mg/dL (<150)
[2024-06-26 09:39] LABS: LDL Cholesterol Direct 60 mg/dL
[2024-06-26 09:46] LABS: MALB Creatinine Ratio 17.6 mg/g (0-30); Microalbumin Urine Random 19.5 mg/L (0-16.7)
[2024-06-26 09:56] LABS: Vitamin D 25 Hydroxy 58.2 ng/mL
[2024-06-26 09:57] LABS: Prostate Specific Antigen 2.8 ng/mL (< OR = 4.0)
== END 2024-06-26 08:43 | disposition home or self-care (01) ==
LOC: ANHLAB 08:45
PROVIDERS: PCP Emergency Medicine; Visit Provider Emergency Medicine
DX: E78.5 Hyperlipidemia, unspecified (principal); E11.9 Type 2 diabetes mellitus without complications; E55.9 Vitamin D deficiency, unspecified; Z12.5 Encounter for screening for malignant neoplasm of prostate
CPT/HCPCS: 36415; 80053; 80061; 82043; 82306; 83036; 84153; G0103

== ENCOUNTER 2024-07-14 07:24 | Outpatient (CLI) | payer BC, SELFPAY ==
--- NOTE | ~2024-07-14 | MR_ITS ---
EXAMINATION: MR cervical spine wo con DATE: 07/14/2024 08:03 INDICATION: Neck pain. Fall 3 weeks ago. TECHNIQUE: Magnetic resonance imaging (MRI) of the cervical spine was performed without intravenous c ontrast. COMPARISON: Cervical spine radiographs 12/09/2003 FINDINGS: There is 15 degrees dextrocurvature scoliosis of cervical spine. There is 2 mm anterolisthe sis of C4 on C5, 2 mm retrolisthesis of C5 on C6, and 2 mm anterolisthesis of C7 on T1. There is a no ndisplaced fracture of the base of the dens. There is interbody fusion at C3-C4. There is severely de creased disc height at C4-C5 through C7-T1. The following disc levels are specifically discussed: C2-C3: There is a central protrusion. There is mild bilateral uncovertebral joint osteoarthritis. The re is severe bilateral facet joint osteoarthritis. There is mild bilateral neural foraminal stenosis. There is no central canal stenosis. C3-C4: There is mild bilateral uncovertebral joint hypertrophy. There is mild right facet joint osteo arthritis. There is ankylosis of left facet joint with moderate hypertrophy. There is mild left neura l foraminal stenosis. There is mild central canal stenosis. C4-C5: The disc is bulging. There is severe bilateral uncovertebral joint osteoarthritis. There is mi ld right facet joint osteoarthritis.. There is ankylosis of left facet joint with severe hypertrophy. There is mild right and moderate left neural foraminal stenosis. There is mild central canal stenosi s. C5-C6: The disc is bulging. There is severe bilateral uncovertebral joint osteoarthritis. There is se triny bilateral facet joint osteoarthritis. There is severe right and moderate left neural foraminal s tenosis. There is mild central canal stenosis. C6-C7: The disc is bulging. There is severe bilateral uncovertebral joint osteoarthritis. There is se triny right and moderate left facet joint osteoarthritis. There is mild bilateral neural foraminal allan nosis. There is mild central canal stenosis. C7-T1: The disc is bulging. There is mild bilateral uncovertebral joint osteoarthritis. There is shamir re bilateral facet joint osteoarthritis. There is mild bilateral neural foraminal stenosis. There is mild central canal stenosis. IMPRESSION: 1. Type II odontoid fracture. I called this result to Dr. Lewis. 2. Severe cervical spondylosis. Reviewed, dictated and finalized at location A.
--- NOTE | ~2024-07-14 | MR_ITS ---
EXAMINATION: MR lumbar spine wo con DATE: 07/14/2024 08:11 INDICATION: Low back pain, unspecified. TECHNIQUE: Magnetic resonance imaging (MRI) of the lumbar spine was performed without intravenous con trast. Sequences included sagittal T2-weighted FSE, sagittal T2-weighted FS FSE, sagittal T1-weighted FSE, and axial T2-weighted FSE. COMPARISON: Lumbar spine radiographs 07/18/2015, CT abdomen and pelvis 10/24/2023. FINDINGS: There is 4 degrees levocurvature of lumbar spine. There is a burst fracture of L1 with 3/5 loss of height and retropulsion of bone 3 mm into central spinal canal, and edema-like marrow signal intensity. There is moderately decreased disc height at L2-L3 and severely decreased disc height at L 4-L5 and L5-S1. The distal spinal cord signal intensity is normal. The conus medullaris is at L1-L2. The following disc levels are specifically discussed: L1-L2: The disc is bulging. There is mild bilateral facet joint osteoarthritis. There is no neural fo raminal stenosis. There is mild central canal stenosis. L2-L3: The disc is bulging. There is moderate bilateral facet joint osteoarthritis. There is mild vianca ateral neural foraminal stenosis. There is mild central canal stenosis. L3-L4: The disc is bulging and has an annular fissure. There is severe bilateral facet joint osteoart hritis. There is mild bilateral neural foraminal stenosis. There is mild central canal stenosis. L4-L5: The disc is bulging and has an annular fissure. There is severe bilateral facet joint osteoart hritis. There is mild bilateral neural foraminal stenosis. There is mild central canal stenosis. L5-S1: The disc is bulging and has an annular fissure. There is severe bilateral facet joint osteoart hritis. There is mild bilateral neural foraminal stenosis. There is mild central canal stenosis. IMPRESSION: 1. Acute versus subacute L1 burst fracture. 2. Severe lumbar spondylosis. Reviewed, dictated and finalized at location A.
== END 2024-07-14 07:25 | disposition home or self-care (01) ==
LOC: MICIMG 07:25
PROVIDERS: PCP Emergency Medicine; Visit Provider Emergency Medicine
DX: M54.50 Low back pain, unspecified (principal); M54.2 Cervicalgia; S32.011A Stable burst fracture of first lumbar vertebra, initial encounter for closed fracture; M43.06 Spondylolysis, lumbar region; M43.02 Spondylolysis, cervical region; S12.120A Other displaced dens fracture, initial encounter for closed fracture
CPT/HCPCS: 72141; 72148

== ENCOUNTER 2024-07-16 11:45 | Emergency (ER) | payer BC, SELFPAY ==
[2024-07-16 11:47] VITALS: BP 127/93; PULSE 96; RESP 18; TEMP 36.3; O2SAT 96
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
--- NOTE | 2024-07-16 13:19 | PC.NURSE ---
[place] collar applied.
== END 2024-07-16 13:28 | disposition home or self-care (01) ==
PROVIDERS: Emergency Provider Emergency Medicine; PCP Emergency Medicine
DX: S12.110A Anterior displaced Type II dens fracture, initial encounter for closed fracture (principal); S32.019A Unspecified fracture of first lumbar vertebra, initial encounter for closed fracture; F41.9 Anxiety disorder, unspecified; E11.9 Type 2 diabetes mellitus without complications; I10 Essential (primary) hypertension; G47.30 Sleep apnea, unspecified; W11.XXXA Fall on and from ladder, initial encounter
CPT/HCPCS: 99283; L0140

== ENCOUNTER 2024-07-26 07:46 | Outpatient (CLI) | payer BC, SELFPAY ==
--- NOTE | ~2024-07-26 | XR_ITS ---
EXAMINATION: XR_CERV2-3V_CR DATE: 07/26/2024 08:39 INDICATION: Cervical spondylosis without myelopathy or radiculopathy. TECHNIQUE: 3 views of cervical spine were obtained. COMPARISON: Cervical spine MRI 07/14/2024 FINDINGS: There is 17 degrees dextroscoliosis of cervical spine. There is 2 mm retrolisthesis of C5 o n C6. Vertebral body heights are normal. Again seen is a fracture of the base of the dens. There is i nterbody fusion at C3-C4. There is moderately decreased disc height at C4-C5 and severely decreased d isc height at C5-C6 and C6-C7. There is multilevel severe facet joint osteoarthritis, left worse than right. There is mild central canal stenosis at C3-C4, C4-C5, C5-C6, and C6-C7. No prevertebral soft tissue swelling. IMPRESSION: 1. Nondisplaced type II odontoid fracture again seen. 2. Severe cervical spondylosis. 3. Cervical dextroscoliosis. Reviewed, dictated and finalized at location A. SCHOOL MUSIC DIRECTOR
--- NOTE | ~2024-07-26 | XR_ITS ---
EXAMINATION: XR lumbar spine 2-3V DATE: 07/26/2024 08:39 INDICATION: Low back pain, unspecified. TECHNIQUE: 3 views of lumbar spine standing were obtained. COMPARISON: Lumbar spine radiographs 07/18/2015, lumbar spine MRI 07/14/2024 FINDINGS: There is 8 degrees levocurvature of lumbar spine. There is a burst fracture of L1 with 3/5 loss of height anteriorly and focal kyphosis. There is mildly decreased disc height at T12-L1 and L1- L2, moderately decreased disc height at L2-L3, and severely decreased disc height at L4-L5 and L5-S1. There is multilevel facet joint osteoarthritis, severe in lower lumbar spine. There is a 17 mm stone in right kidney. IMPRESSION: 1. Subacute burst fracture of L1, stable from 07/14/24. 2. Severe lumbar spondylosis. 3. Right kidney stone. Reviewed, dictated and finalized at location A. ORK CONTROL OPERATORS SUPERVISOR
== END 2024-07-26 07:47 | disposition home or self-care (01) ==
PROVIDERS: PCP Emergency Medicine; Visit Provider Neurological Surgery
DX: M47.812 Spondylosis without myelopathy or radiculopathy, cervical region (principal); N20.0 Calculus of kidney; M47.896 Other spondylosis, lumbar region; S32.011D Stable burst fracture of first lumbar vertebra, subsequent encounter for fracture with routine healing; X58.XXXD Exposure to other specified factors, subsequent encounter
CPT/HCPCS: 72040; 72100

== ENCOUNTER 2024-08-28 13:46 | Outpatient (CLI) | payer BC, SELFPAY ==
--- NOTE | ~2024-08-28 | CT_ITS ---
Noncontrast CT scan of the cervical spine Technique: Multiple contiguous axial [address] images of the cervical spine were obtained and rec onstructed in 2D sagittal and coronal planes on the acquisition scanner. Dose reduction technique was used on this scan by utilizing automated exposure control, adjustment of the mA and/or kV according to patient size. The dose-length product (DLP) was 244.89 mGy-cm. Clinical History: Type II odontoid fracture COMPARISON: MR dated 07/14/2024 Findings: Transverse type II odontoid fracture is essentially stable as compared to prior MR. Alignme nt unchanged. No bony bridging across the fracture site evident at this time. There is degenerative c hange at the articulation of the odontoid process with the anterior arch of C1. No new fracture or [place] bluxation evident. Stable grade 1 anterolisthesis of C7 over T1. At C2-C3, there is bilateral facet arthropathy, left worse than right. Probable mild bilateral neural foraminal narrowing. No kaur canal stenosis or cord compression. At C3-C4, there is advanced degenerative disc narrowing with probable left facet arthropathy. There i s mild bilateral neural foraminal narrowing. No definite canal stenosis or cord compression. At C4-C5, there is moderate to advanced degenerative disc narrowing. There is left facet arthropathy with left neural foraminal narrowing. Possible minimal right neural foraminal narrowing. No canal allan nosis or cord compression. At C5-C6, there is severe degenerative disc narrowing. There is disc osteophyte compresses bilateral facet arthropathy. There is mild to moderate canal stenosis and bilateral neural foraminal narrowing, right worse than left. At C6-C7, there is severe degenerative disc narrowing with bilateral facet arthropathy. There is bila teral neural foraminal narrowing. There is mild canal stenosis. Paravertebral soft tissues are unremarkable. Impression: Type II odontoid fracture, essentially unchanged from prior MR. Advanced degenerative spondylosis, especially at the lower cervical spine, as detailed above. Reviewed, dictated and finalized at [facility]. OR FABRICATION SUPERVISOR Impression: Type II odontoid fracture, essentially unchanged from prior MR. Advanced degenerative spondylosis, especially at the lower cervical spine, as d etailed above.
== END 2024-08-28 13:47 | disposition home or self-care (01) ==
LOC: MICIMG 13:47
PROVIDERS: PCP Emergency Medicine; Visit Provider Neurological Surgery
DX: S12.110D Anterior displaced Type II dens fracture, subsequent encounter for fracture with routine healing (principal); X58.XXXD Exposure to other specified factors, subsequent encounter; M47.892 Other spondylosis, cervical region
CPT/HCPCS: 72125

== ENCOUNTER 2024-08-31 08:37 | Outpatient (CLI) | payer BC, SELFPAY ==
--- NOTE | ~2024-08-31 | XR_ITS ---
XR lumbar spine 2-3V 08/31/2024 08:49 Indication: Wedge compression fracture of L1. Procedure: 2 views lumbar spine Comparison: 07/18/2015 and 07/26/2024 Findings: Stable appearance to burst fracture of L1 with retrolisthesis with respect to L2. There is disc narrowing at L1-2, L2-3, L4-5 and L5-S1. There is facet hypertrophy at L4-5 and L5-S1. There is atherosclerosis. Stable right kidney stones. There is mild scoliosis. Impression: 1: Stable burst fracture of L1. 2: Severe lumbar spondylosis. 3: Stable appearance to right nephrolithiasis. Reviewed, dictated and finalized at location B. GN PRINTING MACHINE SETTER Impression: 1: Stable burst fracture of L1. 2: Severe lumbar spondylosis. 3: Stable appearance to right nephrolithiasis.
== END 2024-08-31 08:38 | disposition home or self-care (01) ==
LOC: MICIMG 08:38
PROVIDERS: PCP Emergency Medicine; Visit Provider Neurological Surgery
DX: M47.896 Other spondylosis, lumbar region (principal); S32.010D Wedge compression fracture of first lumbar vertebra, subsequent encounter for fracture with routine healing; X58.XXXD Exposure to other specified factors, subsequent encounter
CPT/HCPCS: 72100

== ENCOUNTER 2024-10-15 08:10 | Outpatient (CLI) | payer BC, SELFPAY ==
--- NOTE | ~2024-10-15 | XR_ITS ---
Cervical Spine: AP, lateral, open-mouth views Clinical History: Pain Findings: There is straightening of the normal cervical lordosis. No acute fracture or subluxation ev ident. There is severe degenerative disc narrowing at C3-C4, C5-C6, and C6-C7. There is moderate dege nerative disc narrowing at C4-C5. There is moderate to advanced facet arthropathy throughout the cerv ical spine. No instability evident on flexion or extension. Pre-vertebral soft tissues are unremarkab le. Impression: Severe degenerative spondylosis. No fracture, subluxation, or instability evident. Reviewed, dictated and finalized at location M. APEUTIC PROGRAM WORKER Impression: Severe degenerative spondylosis. No fracture, subluxation, or instability evide nt.
--- NOTE | ~2024-10-15 | XR_ITS ---
Lumbosacral Spine: AP and lateral views Clinical History: Burst fracture COMPARISON: 08/31/2024 Findings: Stable severe T12 compression fracture deformity. No subluxation evident. Severe degenerati ve disc narrowing at L5-S1 is present. There is moderate degenerative disc narrowing at L4-L5. There is moderate to advanced facet arthropathy throughout the lumbar spine. The sacroiliac joints are norm ally outlined. Stable large stone at the right lower pole renal region. Impression: No interval change. Stable severe T12 compression fracture. Stable moderate to advanced degenerative spondylosis. Stable large right renal stone. Reviewed, dictated and finalized at location . TIC FACILITY MANAGER Impression: No interval change. Stable severe T12 compression fracture. Stable moderate to advanced degenerative spondylosis. Stable large right renal stone.
== END 2024-10-15 08:11 | disposition home or self-care (01) ==
LOC: MICIMG 08:13
PROVIDERS: PCP Emergency Medicine; Visit Provider Neurological Surgery
DX: S32.001A Stable burst fracture of unspecified lumbar vertebra, initial encounter for closed fracture (principal); X58.XXXA Exposure to other specified factors, initial encounter; N20.0 Calculus of kidney; M47.896 Other spondylosis, lumbar region; M47.892 Other spondylosis, cervical region
CPT/HCPCS: 72050; 72100

== ENCOUNTER 2024-11-20 11:15 | Outpatient (RCR) | payer BC, SELFPAY ==
--- NOTE | 2024-10-26 15:29 | OPREHPOC ---
Outpatient Therapy Plan of Care This is a Multidisciplinary Plan of Care that may contain components documented by all disciplines (PT, OT, and ST.) PT Problem 1 PT Problem #1 Knowledge Deficit PT Goal 1 Goal / Goal Update *indep with HEP Target Visit 6 PT Problem 2 PT Problem #2 Pain PT Goal 1 Goal / Goal Update * pain rating at worst of 4/10, to increase activity level Target Visit 6 PT Problem 3 PT Problem #3 Impaired Strength PT Goal 1 Goal / Goal Update *increase trunk and LE strength to improve stability to spine and posture 1* single leg standing R x 30 seconds with good stability 2* single leg standing L x 30 seconds with good stability 3* pt ambulate 300' with upright trunk/no trunk flexion Target Visit 6
--- NOTE | 2024-10-26 15:29 | PTOPEVAL1 ---
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; have not had any therapy for back; been trying to stretch back, in standing some; 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 He has a history of low back pain and in June had a fall with L 1 compression fracture. Also has PRN use of cervical brace for odontoid fracture from the fall. Self assessment Oswestry rating of 34% limitation in activity level. 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 With the evaluation: stands with L shoulder elevated with forward rotation, and R hip elevated and flattened lumbar spine; with supine R and L hip motions he did not have pain increase; weakness of trunk and hip extension bilateral. Skilled PT services are indicated for modalities to decrease lumbar pain and spasms; therapeutic exercises to increase trunk and hip strength and education for HEP and posture. Plan of Care Interventions Electrical Stimulation,Hot Pack/Cold Pack,Manual Therapy,Neuro Re-education,Patient/Caregiver Education,Therapeutic Activities,Therapeutic Exercise,Other Other Interventions taping PT Services Indicated Yes Treatment Frequency and 1-2x/wk for 6 visits Duration These treatments will address the objective and functional deficits as defined above. The patient will be advanced safely and appropriately in order for the patient to progress towards his/her prior level of function. Additional exercises will be introduced and as well as a comprehensive home exercise program upon discharge, if needed, ?to ensure carryover of functional gains achieved in the clinic. This treatment plan has been reviewed and agreement upon by the patient.
--- NOTE | 2024-11-27 10:18 | PCPTNOTE ---
pt did not show for today's reeval appt; called and left voice mail message.
--- NOTE | 2024-12-19 11:56 | PTOPDC ---
Assessment and note entered by Doris Morales, PT Assessment Status Discharge - Pt Not Present ICD-10 Condition Codes (PT) Pain in low back M54.50 Other ICD-10 Condition Codes ( S32.001A lumbar compression fracture PT) Onset Jun 21-2023 Subjective Information pt was not seen this date. Assessment PT Clinical Summary Francisco has received 5 PT sessions, from Oct 26 to November 20. He then stopped attending therapy. Discharge PT. The goals were not addressed. Plan of Care PT Services Indicated No
== END 2024-12-19 14:38 | disposition home or self-care (01) ==
LOC: ANHPT 11:15
PROVIDERS: PCP Neurological Surgery; Visit Provider Neurological Surgery
DX: S32.001A Stable burst fracture of unspecified lumbar vertebra, initial encounter for closed fracture (principal); M54.50 Low back pain, unspecified
CPT/HCPCS: 97110; 97161; 97530

== ENCOUNTER 2024-11-27 09:35 | Outpatient (CLI) | payer BC, SELFPAY ==
--- NOTE | ~2024-11-27 | XR_ITS ---
XR cervical spine 4-5V Ordering provider: Jania Dominguez MD History: . S12.110K - Anterior displaced Type II dens fracture, subs... . Comparison: None. FINDINGS: VERTEBRAL BODIES: Normal height and alignment. No visible fracture or subluxation. The dens is intact . DISK SPACES: Narrowing of the disc C3-C4, C4-C5, C5-C6, C6-C7 and C7-T1. Multilevel uncovertebral rebecca nt osteoarthritic changes. Multilevel facet joint disease. PARASPINOUS SOFT TISSUES: No prevertebral soft tissue swelling. IMPRESSION: No acute osseous abnormality cervical spine. Multilevel degenerative disc disease. Reviewed, dictated and finalized at location A.
== END 2024-11-27 09:36 | disposition home or self-care (01) ==
PROVIDERS: PCP Neurological Surgery; Visit Provider Neurological Surgery
DX: S12.110K Anterior displaced Type II dens fracture, subsequent encounter for fracture with nonunion (principal); X58.XXXD Exposure to other specified factors, subsequent encounter; M50.30 Other cervical disc degeneration, unspecified cervical region
CPT/HCPCS: 72050

== ENCOUNTER 2024-12-31 07:48 | Outpatient (CLI) | payer BC, SELFPAY ==
[2024-12-31 08:38] LABS: Hemoglobin A1C 7.1 % (<5.7)
[2024-12-31 08:44] LABS: Alanine Aminotransferase 24 U/L (6-50); Albumin Level 4.1 g/dL (3.5-5.1); Alkaline Phosphatase 57 U/L (38-126); Anion Gap 9 mmol/L (4-12); Aspartate Amino Transferase 25 U/L (17-59); Bilirubin,Total 0.6 mg/dL (0.2-1.3); Blood Urea Nitrogen 21 mg/dL (9-20); Calcium 9.3 mg/dL (8.4-10.2); Carbon Dioxide 28 mmol/L (22-30); Chloride 104 mmol/L (98-107); Cholesterol 160 mg/dL (0-200); Estimated Glomerular Filt Rate > 60; Glucose 110 mg/dL (65-110); HDL Direct 45 mg/dL; Sodium 141 mmol/L (137-145); Triglycerides 120 mg/dL (<150)
[2024-12-31 08:46] LABS: Creatinine Urine 104.7 mg/dL
[2024-12-31 08:51] LABS: MALB Creatinine Ratio 17.6 mg/g (0-30); Microalbumin Urine Random 18.4 mg/L (0-16.7)
[2024-12-31 08:55] LABS: LDL Cholesterol Direct 82 mg/dL
[2024-12-31 09:01] LABS: Vitamin D 25 Hydroxy 48.9 ng/mL
== END 2024-12-31 07:49 | disposition home or self-care (01) ==
PROVIDERS: PCP Emergency Medicine; Visit Provider Emergency Medicine
DX: E78.5 Hyperlipidemia, unspecified (principal); E55.9 Vitamin D deficiency, unspecified; E11.9 Type 2 diabetes mellitus without complications
CPT/HCPCS: 36415; 80053; 80061; 82043; 82306; 83036

== ENCOUNTER 2025-01-28 08:17 | Outpatient (CLI) | payer BC, SELFPAY ==
--- NOTE | ~2025-01-28 | CT_ITS ---
CT cervical spine wo con Ordering provider: Jania Dominguez MD History: . Anterior displaced Type II dens fracture . Comparison: August 28, 2024 Technique: CT of the cervical spine was performed without contrast. Sagittal and coronal reformatted images were also obtained and reviewed. Automated exposure control and iterative reconstruction aston hnique were employed. The dose-length product was 293.23 mGy-cm. FINDINGS: VERTEBRAE: Type II fracture of the dens is noted unchanged from previous examination. Widening of the distance between the posterior arch of C1 and C2 which may indicate ligamentous injury. No subluxati on. The occipital condyles are intact. DISC SPACES: Narrowing of the disc C3-C4, C4-C5, C5-C6, C6-C7 and C7-T1. Multilevel facet joint disea se. Multilevel uncovertebral joint osteoarthritic changes. Bilateral narrowing of the foramina at the level of C4-C5, C5-C6 and C6-C7. PARASPINOUS SOFT TISSUES: Normal. IMPRESSION: Type II fracture odontoid process of C2 unchanged from previous examination. Multilevel degenerative disc disease. Reviewed, dictated and finalized at location A.
--- NOTE | ~2025-01-28 | XR_ITS ---
XR cervical spine 4-5V Ordering provider: Jania Dominguez MD History: . S12.110K - Anterior displaced Type II dens fracture, subs... . Comparison: November 27, 2024 FINDINGS: VERTEBRAL BODIES: Dextroscoliosis. fracture of the dens is noted which is confirmed by CT done on same day and previous MRI done on 2023. Minimal displacement 4 mm is seen with flexion images. DISK SPACES: Narrowing of the disc C3-C4, C4-C5, C5-C6 and C6-C7. Multilevel facet joint disease. Mul tilevel uncovertebral joint osteoarthritic changes. PARASPINOUS SOFT TISSUES: No prevertebral soft tissue swelling. IMPRESSION: Fracture of the odontoid process which is minimally showing subluxation the flexion image. The fractu re is confirmed by CT on same day and previously by MRI done on July 14, 2024. Multilevel degenerative disc disease. Reviewed, dictated and finalized at location A. IMPRESSION: Fracture of the odontoid process which is minimally showing subluxation the fle xion image. The fracture is confirmed by CT on same day and previously by MRI d one on July 14, 2024. Multilevel degenerative disc disease.
== END 2025-01-28 08:18 | disposition home or self-care (01) ==
LOC: MICIMG 08:17
PROVIDERS: PCP Emergency Medicine; Visit Provider Neurological Surgery
DX: S12.110K Anterior displaced Type II dens fracture, subsequent encounter for fracture with nonunion (principal); M50.321 Other cervical disc degeneration at C4-C5 level; M50.322 Other cervical disc degeneration at C5-C6 level; M50.323 Other cervical disc degeneration at C6-C7 level; X58.XXXA Exposure to other specified factors, initial encounter
CPT/HCPCS: 72050; 72125

== ENCOUNTER 2025-02-13 08:14 | Outpatient (CLI) | payer BC, SELFPAY ==
--- NOTE | ~2025-02-13 | XR_ITS ---
CHEST RADIOGRAPH, PA AND LATERAL CLINICAL HISTORY: R06.2 - Wheezing . COMPARISON: None available TECHNIQUE: PA and lateral views of the chest. FINDINGS The cardiomediastinal silhouette is unremarkable. No significant peribronchial thickening is appreciated. Elevation of the left hemidiaphragm with adjacent compressive atelectasis. The remainder of the lungs are clear. IMPRESSION: No focal infiltrate or effusion. Reviewed, dictated and finalized at location A.
--- NOTE | ~2025-02-13 | CT_ITS ---
EXAMINATION: CT sinus wo con DATE: 02/13/2025 08:34 INDICATION: Allergic rhinitis TECHNIQUE: Computed tomography (CT) of the paranasal sinuses was performed without intravenous contra st. The dose-length product was 280.89 mGy-cm. COMPARISON: No prior studies for comparison. FINDINGS: Paranasal sinuses and mastoids are pneumatized. No depressed skull fractures. Leftward nasa l septal deviation. No significant mucosal thickening. No air-fluid levels. Ostiomeatal units are pat ent. Mastoids are pneumatized. No midline shift. IMPRESSION: 1. No significant sinus disease. Reviewed, dictated and finalized at location A.
== END 2025-02-13 08:15 | disposition home or self-care (01) ==
PROVIDERS: PCP Emergency Medicine; Visit Provider Emergency Medicine
DX: J30.9 Allergic rhinitis, unspecified (principal); R06.2 Wheezing
CPT/HCPCS: 70486; 71046

== ENCOUNTER 2025-06-21 07:52 | Outpatient (CLI) | payer BC, SELFPAY ==
--- OUTSIDE RECORDS SUMMARY | 2025-06-21 07:56 | XMS_ITS | Clinical Summary ---
Author Organization [facility] Address [address] [place] [id number] Care Team Providers Care Newspaper Writer Name Role Phone Unavailable Primary Care Provider Unavailabl e Social History Tobacco Use Types Packs/Day Years Used Date Smoking Tobacco: Never Assessed Sex and Gender Information Value Date Recorded Sex Assigned at Not on file Legal Sex Male 8:12 PM CDT Gender Identity Not on file Sexual Orientation Not on file Plan of Treatment Health Maintenance Due Date Last Done Comments Colorectal Cancer Screening Colonoscopy (10 Years) 1960 Annual Physical 1963 Hepatitis C 1978 DTaP, Tdap and Td Vaccines ( 1 - Tdap) 1979 Pneumococcal Vaccine: 50+ Ye ars (1 of 1 - PCV) 2010 Zoster Vaccines (1 of 2) 2010 COVID-19 Vaccine ( - 2023-2 5 season) 2025 RSV Immunization or 60+ Years (1 - 1-dose 75+ series) 2035 Meningococcal B Vaccine Aged Out No l onger eligible based on patient's age to complete this topic Meningococcal Vaccine Aged Out No corina lan eligible based on patient's age to complete this topic RSV Immunizations Under 20 Months Aged Out No longer eligible based on patient's age to complete this topic
[2025-06-21 09:03] LABS: Alanine Aminotransferase 29 U/L (6-50); Albumin Level 4.3 g/dL (3.5-5.1); Alkaline Phosphatase 65 U/L (38-126); Anion Gap 11 mmol/L (4-12); Aspartate Amino Transferase 33 U/L (17-59); Bilirubin,Total 0.8 mg/dL (0.2-1.3); Blood Urea Nitrogen 17 mg/dL (9-20); Calcium 9.4 mg/dL (8.4-10.2); Carbon Dioxide 24 mmol/L (22-30); Chloride 104 mmol/L (98-107); Cholesterol 157 mg/dL (0-200); Estimated Glomerular Filt Rate > 60; Glucose 126 mg/dL (65-110); HDL Direct 42 mg/dL; Potassium 4.0 mmol/L (3.4-5.0); Sodium 139 mmol/L (137-145); Total Protein 7.1 g/dL (6.3-8.2); Triglycerides 146 mg/dL (<150)
[2025-06-21 09:39] LABS: Prostate Specific Antigen 1.9 ng/mL (< OR = 4.0)
[2025-06-21 11:04] LABS: Hemoglobin A1C 7.0 % (<5.7)
== END 2025-06-21 07:53 | disposition home or self-care (01) ==
LOC: ANHLAB 07:53
PROVIDERS: PCP Emergency Medicine; Visit Provider Emergency Medicine
DX: E78.5 Hyperlipidemia, unspecified (principal); E55.9 Vitamin D deficiency, unspecified; E11.9 Type 2 diabetes mellitus without complications; R97.20 Elevated prostate specific antigen [PSA]
CPT/HCPCS: 36415; 80053; 80061; 82306; 83036; 84153; G0103

== ENCOUNTER 2025-07-09 09:21 | Outpatient (CLI) | payer BC, SELFPAY ==
--- NOTE | 2025-07-09 09:27 | ECG_ITS ---
Test Date: 2025-07-09 09:41:13 Measurements Intervals [place] Rate: 85 P: 68 WA: 164 QRS: 8 QRSD: 89 T: -8 QT: 396 QTc: 472 Interpretive Statements SINUS RHYTHM WITH SINUS ARRHYTHMIA BORDERLINE T WAVE ABNORMALITY- INFERIOR LEADS BASELINE ARTIFACT- I, II, III, AVR, AVL, AVF BORDERLINE ECG No previous ECG available for comparison Electronically Signed On 07-09-2025 09:56:20 CDT by Berny Altman D.O.
[2025-07-09 09:47] LABS: Hematocrit 42.8 % (42.0-52.0); Hemoglobin 14.1 g/dL (14.0-18.0)
== END 2025-07-09 09:22 | disposition home or self-care (01) ==
LOC: ANHSURGERY 09:24
PROVIDERS: Anesthesiology; PCP Emergency Medicine; Visit Provider Otolaryngology Otolaryngology/Facial Plastic Surgery
DX: R94.31 Abnormal electrocardiogram [ECG] [EKG] (principal); D64.9 Anemia, unspecified; I10 Essential (primary) hypertension
CPT/HCPCS: 36415; 85014; 85018; 93005

== ENCOUNTER 2025-08-02 03:08 | Day surgery (SDC) | payer BC, SELFPAY ==
[2025-07-08 09:41] VITALS: BMI 31.8
--- NOTE | 2025-07-08 09:54 | PC.NURSE ---
Addendum entered by Juan Carlos Garcia RN 07/24/25 13:40: 1338-Called the pt d/t the surgery being rescheduled for 08/02/25 at 1215. Pt knows to arrive at 1015. Updated his NPO status as instructed. Denies any new medications or diagnosis since last interviewed by PAT on 07/08/25. Pt verbalizes understanding and denies having any further questions.-michael Original Note: [facility] has started construction of its new state of the art ER which will open Spring 2026. With this, we anticipate parking may be a challenge for some our surgical patients and families. Parking spaces are limited but are available for all Surgical, obstetrics, and ER patients sharing this lot. If you arrive and find you are having a hard time finding a parking space, please note that we understand the challenges, please drive around the hospital and park near Hospital Entrance 1. When you enter this entrance, you can ask a volunteer to direct or take you back to the surgical waiting area to check in. We appreciate everyone?s understanding of these expected challenges while we build for your future. Report to the Outpatient Waiting Room, entrance under the green pavilion located off [facility], at time _0930_ on date _[phone]_. Planned Procedure Time: _1130_.? Time changes happen often and if your time is changed the preop area will call you the afternoon before. - You and your visitor will be asked to self-screen and do not enter if you have any COVID symptoms. Please call surgeon if you need to reschedule. - A mask is optional within the hospital at this time. Patients may have clear liquids (water, carbonated beverages, clear teas, apple juice) until 3 hours prior to surgery with a maximum of 20 ounces. - No food from midnight until time of surgery and no smoking, or chewing tobacco (or any form of nicotine). No chewing gum, candy or mints. Take only the following medications with a SIP of water on the morning of surgery: ___Ipatropium bromide nasal spray. Albuterol if needed.____ DO NOT STOP ANY OF YOUR OTHER PRESCRIPTION MEDICATIONS PRIOR TO SURGERY EXCEPT THE FOLLOWING Hold all vitamins and supplements for 3 days per anesthesiologist. Medications to discontinue per physician Date to take last uezi___[phone]____ Please no make-up, nail macedonian, hairspray, perfume, deodorant, or body powder the day of surgery.? No jewelry (including any body piercings) or valuables the day of surgery, leave them at home.? Please take a shower or bath the night before, or the morning of, surgery with an antibacterial soap.? Wear comfortable, loose fitting clothing.? - Jewelry must be removed prior to entering the operating room.? Rings and piercings that are not removed may be cut off. - The hospital will not accept responsibility for valuables.? - Please leave all valuables, including medications, at home the day of surgery. If you are going home after surgery, a licensed pizza delivery driver must drive you home.? - NO public transportation without another adult if you receive anesthesia. - We recommend that an adult stay with you for 24 hours following discharge. - We also recommend that you do not drive, make important decision, drink alcoholic beverages, or take any drugs that were not prescribed by your health care provider for at least 24 hours after your discharge time. Follow any additional instructions given to you from your surgeon. Telephone instructions given to __Francisco__and asked if any additional questions and then verbalized understanding. Patient advised to call surgeon office or pre surgery nurse liaison [phone] if any additional questions.
[2025-08-02] VITALS (8 sets, daily range): BP systolic 105–148; BP diastolic 62–93; PULSE 64–85; RESP 11–18; TEMP 36.2–36.8; O2SAT 98–100
--- OUTSIDE RECORDS SUMMARY | 2025-08-02 03:11 | XMS_ITS | Clinical Summary ---
Author Organization [facility] Address [address] [place] [id number] Care Team Providers Care Beam Dyer Operator Name Role Phone Unavailable Primary Care Provider [...] of 2) 2010 COVID-19 Vaccine ( - 2024-2 6 season) 2025 Influenza Adult (#1) 2025 RSV Immunization or 60+ Years (1 - 1-dose 75+ series) 2035 Hepatitis A Vaccines Aged Out No long er eligible based on patient's age to complete this topic Meningococcal B Vaccine Aged Out No l onger eligible based on patient's age to complete this topic Meningococcal Vaccine Aged Out No corina lan eligible based on patient's age to complete this topic RSV Immunizations Under 20 Months Aged Out No longer eligible based on patient's age to complete this topic
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
[2025-08-02] MEDS: OXYMETAZOLINE HCL 0.05% NAS 15 ML BTL (*BKC) 2 SPRAY NASAL ×3 (10:50→11:00)
[2025-08-02] MEDS: ACETAMINOPHEN 500 MG TABLET 1000 MG PO (10:55)
[2025-08-02] MEDS: TRANEXAMIC ACID 1,000MG/ISO100 1,000 MG/100 ML BAG 200 MG IVPB (10:55)
[2025-08-02] MEDS: LACTATED RINGERS 1,000 ML 30 ML IV CONT ×2 (10:55→13:25)
--- NOTE | 2025-08-02 11:21 | WPDHPUPDATE1 ---
History and Physical Update Update Date/Time: 08/02/25 11:21 History and Physical has been reviewed, including an updated exam of the patient. There are NO changes in the patient's condition. Risks, benefits, and alternatives have been discussed and questions answered. Patient agrees to proceed with procedure. Plan: will perform septoplasty +bilateral inferior turbinate reduction
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
[2025-08-02] MEDS: ceFAZolin 2 GM in SODIUM CHLORIDE 0.9% IV 50 ML 100 ML IVPB (11:39)
--- NOTE | 2025-08-02 11:40 | P.OP_ITS ---
Procedure Note - Detailed Date of Procedure 08/02/25 Pre-op Diagnosis Hypertrophy Nasal Turbinates-Deviated nasal spetum Post-op Diagnosis Same Procedure Performed ? Endoscopic septoplasty . Bilateral submucous resection inferior turbinate,partial or complete, any method Surgeon Archana Mahmood MD Anesthesia General Description of Procedure The patient was seen in the preoperative area, informed consent was checked and confirmed. The patient was taken to the operating room, sedated and placed under general anesthesia with an endotracheal tube . Eyes were taped and were prepped and draped in the usual sterile fashion. The nose was examined, and the left anterior septum was injected with 1% lidocaine with 1:100,000 epinephrine. [place] incision was made and a mucoperichondrial flap was elevated to expose the quadrangular cartilage and bony septum. Incision was then made anteriorly on the quadrangular cartilage to elevate the contralateral mucoperichondrial flap. The deviated quadrangular cartilage was excised with a Nai knife. At least 1 cm of dorsal and caudal strut of quadrangular was left in place. We resected the deviated bony septum with a Carrington-Packer and a pituitary forceps. After adequate resection of the posterior-inferior bony septum, the mucoperichondrial Flap was laid back in anatomic position. We proceeded with submucosal inferior turbinate reduction, starting on the right side, a stab incision was made anterior mucosa of inferior turbinate. Submucosal pocket was created along the length of the inferior turbinate .Celon radiofrequency probe was introduced through the incision and was used to Shrink the hypertrophied soft tissue part with the outer layer intact . The residual inferior turbinate was then out fractured using Boies elevator. We proceeded to the left side. A stab incision was made on the anterior mucosa of inferior turbinate. Submucosal pocket was created along the length of the inferior turbinate .Celon radiofrequency probe was introduced through the incision and was used to Shrink the hypertrophied soft tissue part with the outer layer intact The residual inferior turbinate was then out fractured using Boies elevator. The nose was then suctioned clean and at this point the care of the patient was then transferred to the anesthesiologist where the patient emerged from general anesthesia without complication. Estimated Blood Loss 5 (ml) Drains No Complications No immediate complications Condition Stable Disposition PACU [facility] Billing Surgery - Charge Forward: Surgery Billing
[2025-08-02] MEDS: LIDO 1%/EPINEPHRINE 1:100,000 50 ML VIAL (12:02)
[2025-08-02] MEDS: COCAINE HCL (*CRX) 4% TOP SOLN 4 ML VIAL 1 APPLIC TOPICAL (12:02)
[2025-08-02] MEDS: TRANEXAMIC ACID 1,000 MG/10 ML AMPUL 1000 MG IV PUSH (12:04)
== END 2025-08-02 15:23 | disposition home or self-care (01) ==
PROVIDERS: PCP Emergency Medicine; Visit Provider Otolaryngology Otolaryngology/Facial Plastic Surgery
PROC: (CPT 30520; principal; 2025-08-02 12:15)
PROC: (CPT 30520; 2025-08-02 12:15)
DX: J34.2 Deviated nasal septum (principal); J34.3 Hypertrophy of nasal turbinates; G89.18 Other acute postprocedural pain; I10 Essential (primary) hypertension; E11.9 Type 2 diabetes mellitus without complications; G47.33 Obstructive sleep apnea (adult) (pediatric); D50.9 Iron deficiency anemia, unspecified; E29.1 Testicular hypofunction; N52.9 Male erectile dysfunction, unspecified; R53.82 Chronic fatigue, unspecified; F41.9 Anxiety disorder, unspecified; M10.9 Gout, unspecified; F12.90 Cannabis use, unspecified, uncomplicated; E66.9 Obesity, unspecified; Z68.30 Body mass index [BMI] 30.0-30.9, adult; Z79.51 Long term (current) use of inhaled steroids; Z79.85 Long-term (current) use of injectable non-insulin antidiabetic drugs; Z99.89 Dependence on other enabling machines and devices; Z98.890 Other specified postprocedural states; Z87.891 Personal history of nicotine dependence
CPT/HCPCS: 30520; 30140; 82948; J0690; A9270; J0330; J1171; J2003; J2004; J2250; J2405; J2704; J3010; J3290; J7050; J7120

== ENCOUNTER 2025-08-21 14:24 | Emergency (ER) | payer BC, SELFPAY ==
--- NOTE | ~2025-08-21 | XR_ITS ---
EXAMINATION: XR chest 1V portable COMPARISON: No comparisons available. HISTORY: RUQ pain, febrile; assess for lobar PNA FINDINGS: The lungs are clear, no effusion. No pneumothorax. Heart is normal size. Mediastinal and hilar contours are within normal limits. Bony thorax no acute abnormality. Miscellaneous: None Impression: No acute cardiopulmonary abnormality. Reviewed, dictated and finalized at location P. [employer] Impression: No acute cardiopulmonary abnormality.
--- NOTE | ~2025-08-21 | US_ITS ---
US abdomen limited Indication: RUQ pain; Gaston + Comparison: None Technique: Martell-scale and color Doppler images were obtained. Findings: LIVER: Unremarkable, liver contours intact, no lesions. Normal echogenicity. . GALLBLADDER/BILIARY: Unremarkable.No cholelithiais, wall thickening or pericholecystic fluid. No biliary dilatation. The CBD 5 mm. [place] sign negative. PANCREAS: Pancreas limited by bowel gas. Right Kidney: The right kidney was not imaged. Impression: No acute process Reviewed, dictated and finalized at location P. CHECKER Impression: No acute process
--- NOTE | ~2025-08-21 | CT_ITS ---
EXAMINATION: CT abdomen pelvis w con DATE: 08/21/2025 16:30 INDICATION: Elevated white blood cell count. Right upper quadrant pain. TECHNIQUE: Computed tomography (CT) of the abdomen and pelvis was performed with 100 cc Omnipaque 350 intravenous contrast. The dose-length product was 884.52 mGy-cm. Automated exposure control and iterative reconstruction technique were employed. COMPARISON: CT dated 10/24/2023. FINDINGS: There is patchy hypoperfusion of the right kidney particularly in the lower pole, suspicious for pyelonephritis. There are multiple stones in the right renal pelvis with mild hydronephrosis. There is dependent atelectasis. Heart size normal. No significant pleural or pericardial effusion. There is atherosclerosis of the aorta without aneurysm. Fatty infiltration of the liver. Gallbladder is present. Spleen, pancreas, adrenal glands are unremarkable. There is a left renal cyst. Nonobstructive bowel gas pattern. No abnormal pelvic masses or fluid collections. No lymphadenopathy. There is a new burst fracture, age indeterminate, of L1. IMPRESSION: 1. Patchy hypoperfusion of the right kidney at the lower pole, suspicious for pyelonephritis. 2: Right nephrolithiasis with hydronephrosis. 3: Age-indeterminate L1 burst fracture, new compared with CT dated 10/24/2023. Reviewed, dictated and finalized at location I. ARY MANAGER IMPRESSION: 1. Patchy hypoperfusion of the right kidney at the lower pole, suspicious for p yelonephritis. 2: Right nephrolithiasis with hydronephrosis. 3: Age-indeterminate L1 burst fracture, new compared with CT dated 10/24/2023.
--- NOTE | 2025-08-21 14:39 | ECG_ITS ---
Test Date: 2025-08-21 15:24:40 Measurements Intervals [place] Rate: 92 P: 0 PA: 0 QRS: 31 QRSD: 90 T: 33 QT: 375 QTc: 466 Interpretive Statements SINUS RHYTHM WITH INTERMITTENT ECTOPIC ATRIAL RHYTHM EARLY PRECORDIAL R/S TRANSITION NONSPECIFIC T-WAVE ABNORMALITY- INFERIOR LEADS ABNORMAL ECG Compared to ECG 07/09/2025 09:41:13 INTERMITTENT ECTOPIC ATRIAL RHYTHM NOW PRESENT Electronically Signed On 08-21-2025 15:34:51 RECORD CUTTER by Berny Altman D.O.
[2025-08-21 14:52] VITALS: BP 118/67; PULSE 98; RESP 16; TEMP 38.2; O2SAT 98
[2025-08-21] MEDS: ONDANSETRON INJ 4 MG/2 ML VIAL IV PUSH (15:05)
[2025-08-21 15:12] LABS: Hematocrit 41.7 % (42.0-52.0); Hemoglobin 14.6 g/dL (14.0-18.0); Immature Granulocyte Percent A 0.9 % (0-0.5); Lymphocytes Absolute Auto 0.37 K/mm3 (0.9-3.2); Mean Corpuscular HGB Conc 35.0 g/dl (32-36); Mean Corpuscular Hemoglobin 31.3 pg (26-34); Mean Corpuscular Volume 89.3 fl (80-100); Nucleated Red Blood Cells Absolute Auto 0.000 K/mm3 (0.0-0.012); Nucleated Red Blood Cells Perc 0.0 % (0.0-0.2); Platelet Count Result 221 k/mm3 (150-375); Red Blood Count 4.67 M/mm3 (4.6-6.20); White Blood Count 28.0 K/mm3 (4.5-10.0)
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
[2025-08-21 15:24] LABS: Alanine Aminotransferase 33 U/L (6-50); Albumin Level 4.6 g/dL (3.5-5.1); Alkaline Phosphatase 86 U/L (38-126); Anion Gap 13 mmol/L (4-12); Aspartate Amino Transferase 37 U/L (17-59); Bilirubin,Total 1.4 mg/dL (0.2-1.3); Blood Urea Nitrogen 26 mg/dL (9-20); Calcium 9.7 mg/dL (8.4-10.2); Carbon Dioxide 21 mmol/L (22-30); Chloride 93 mmol/L (98-107); Estimated CRCL calculation 52 ml/min; Estimated Glomerular Filt Rate 49; Glucose 267 mg/dL (65-110); Lipase 57 U/L (23-300); Potassium 4.0 mmol/L (3.4-5.0); Sodium 127 mmol/L (137-145); Total Protein 8.3 g/dL (6.3-8.2)
[2025-08-21] MEDS: ACETAMINOPHEN 500 MG TABLET 1000 MG PO (15:41)
--- OUTSIDE RECORDS SUMMARY | 2025-08-21 15:43 | XMS_ITS | Clinical Summary ---
Author Organization [facility] Address [address] [place] [id number] Care Team Providers Care Graves Registration Specialist Name Role Phone Unavailable Primary Care Provider [...]
[2025-08-21] MEDS: MORPHINE SULFATE (*CRX) 4 MG/ML INJ IV PUSH (15:44)
[2025-08-21] MEDS: SODIUM CHLORIDE 0.9% IV 1,000 ML 999 ML IV CONT ×2 (15:49→15:59)
[2025-08-21 15:51] LABS: Add Urine Microscopic? YES; Appearance Urine Cloudy (Clear); Glucose Urine UA 1+ mg/dL (Negative); Leukocyte Esterase Ur 2+ LEU/UL (Negative); Nitrate Urine Negative (Negative); Specific Grav Ur 1.024 (1.001-1.035)
[2025-08-21 16:00] LABS: Fractional Inspired Oxygen 21 %; HCO3 VBG 22.5 mEq/l (24.0-30.0); PO2 VBG 53.8 mmHg (35.0-45.0)
[2025-08-21 16:05] LABS: pH VBG 7.544 (7.300-7.400)
[2025-08-21 16:06] LABS: PCO2 VBG 26.7 mmHg (42.0-48.0)
[2025-08-21 16:24] LABS: Influenza A QL RT-PCR Negative (Negative); Influenza B QL RT-PCR Negative (Negative); RSV RNA, RT-PCR Negative (Negative); SARS-CoV-2 RNA PCR Negative (Negative)
[2025-08-21 16:26] LABS: Beta-Hydroxybutyrate/Acetoace. 0.89 mmol/L (0.02-0.27)
[2025-08-21] MEDS: cefTRIAXone 1 GM in SODIUM CHLORIDE 0.9% IV 50 ML 100 ML IVPB (16:35)
[2025-08-21 16:52] VITALS: BP 117/68; PULSE 82; RESP 20; O2SAT 94
[2025-08-21 18:02] VITALS: BP 108/65; PULSE 83; RESP 16; O2SAT 97
[2025-08-21 18:09] VITALS: TEMP 37.3
[2025-08-21 18:26] LABS: Anion Gap 7 mmol/L (4-12); Blood Urea Nitrogen 24 mg/dL (9-20); Calcium 8.5 mg/dL (8.4-10.2); Carbon Dioxide 22 mmol/L (22-30); Chloride 100 mmol/L (98-107); Estimated CRCL calculation 58 ml/min; Estimated Glomerular Filt Rate 56; Glucose 215 mg/dL (65-110); Potassium 4.1 mmol/L (3.4-5.0); Sodium 129 mmol/L (137-145)
[2025-08-21] MEDS: KETOROLAC 15 MG/ML VIAL (*BKC) IV PUSH (18:59)
== END 2025-08-21 19:05 | disposition home or self-care (01) ==
PROVIDERS: Emergency Provider Student in an Organized Health Care Education/Training Program; PCP Emergency Medicine
DX: N17.9 Acute kidney failure, unspecified (principal); N12 Tubulo-interstitial nephritis, not specified as acute or chronic; E11.65 Type 2 diabetes mellitus with hyperglycemia; S32.011A Stable burst fracture of first lumbar vertebra, initial encounter for closed fracture; D72.829 Elevated white blood cell count, unspecified; E87.1 Hypo-osmolality and hyponatremia; R50.9 Fever, unspecified; Z20.822 Contact with and (suspected) exposure to COVID-19; I10 Essential (primary) hypertension; E78.2 Mixed hyperlipidemia; D50.9 Iron deficiency anemia, unspecified; G47.33 Obstructive sleep apnea (adult) (pediatric); M10.9 Gout, unspecified; F41.9 Anxiety disorder, unspecified; Z87.440 Personal history of urinary (tract) infections; Z87.891 Personal history of nicotine dependence; Z87.442 Personal history of urinary calculi; Z79.85 Long-term (current) use of injectable non-insulin antidiabetic drugs; Z79.899 Other long term (current) drug therapy; R94.31 Abnormal electrocardiogram [ECG] [EKG]; N13.2 Hydronephrosis with renal and ureteral calculous obstruction; X58.XXXA Exposure to other specified factors, initial encounter
CPT/HCPCS: 36415; 71045; 74177; 76705; 80048; 80053; 81001; 82010; 82803; 83605; 83690; 85025; 87040; 87086; 87637; 93005; 96365; 96375; 99284; A9270; J0696; J1885; J2270; J2405; J7030; J7040; Q9967

== ENCOUNTER 2025-08-27 10:53 | Outpatient (CLI) | payer BC, SELFPAY ==
[2025-08-27 11:47] LABS: Hematocrit 38.9 % (42.0-52.0); Hemoglobin 13.5 g/dL (14.0-18.0); Immature Granulocyte Percent A 2.5 % (0-0.5); Immature Platelet Fraction Pct 18.1 % (0.9-11.2); Lymphocytes Absolute Auto 0.93 K/mm3 (0.9-3.2); Mean Corpuscular HGB Conc 34.7 g/dl (32-36); Mean Corpuscular Hemoglobin 30.9 pg (26-34); Mean Corpuscular Volume 89.0 fl (80-100); Nucleated Red Blood Cells Absolute Auto 0.000 K/mm3 (0.0-0.012); Nucleated Red Blood Cells Perc 0.0 % (0.0-0.2); Platelet Count Result 106 k/mm3 (150-375); Red Blood Count 4.37 M/mm3 (4.6-6.20); White Blood Count 12.7 K/mm3 (4.5-10.0)
[2025-08-27 12:10] LABS: Alanine Aminotransferase 44 U/L (6-50); Albumin Level 3.3 g/dL (3.5-5.1); Alkaline Phosphatase 178 U/L (38-126); Anion Gap 10 mmol/L (4-12); Aspartate Amino Transferase 61 U/L (17-59); Bilirubin,Total 1.3 mg/dL (0.2-1.3); Blood Urea Nitrogen 33 mg/dL (9-20); Calcium 8.5 mg/dL (8.4-10.2); Carbon Dioxide 22 mmol/L (22-30); Chloride 94 mmol/L (98-107); Estimated Glomerular Filt Rate 45; Glucose 335 mg/dL (65-110); Potassium 3.5 mmol/L (3.4-5.0); Sodium 126 mmol/L (137-145); Total Protein 6.8 g/dL (6.3-8.2)
== END 2025-08-27 10:54 | disposition home or self-care (01) ==
LOC: ANHLAB 10:54
PROVIDERS: PCP Emergency Medicine; Visit Provider Emergency Medicine
DX: I10 Essential (primary) hypertension (principal); E78.5 Hyperlipidemia, unspecified
CPT/HCPCS: 36415; 80053; 85025; 85055

== ENCOUNTER 2025-08-31 21:23 | Observation (INO) | payer BC, SELFPAY ==
--- NOTE | ~2025-08-31 | XR_ITS ---
EXAMINATION: XR retrograde pyelo w/stent RT DATE: 09/01/2025 12:47 INDICATION: Cystoscopy and right internal ureteral stent placement TECHNIQUE: 3 fluoroscopic images of the abdomen and pelvis were obtained procedure performed by Dr. Bauer. Radiologist was not present for the imaging or procedure. The amount of fluoroscopy time used during this procedure was 0.3 minutes. The dose area product was 0.319 mGym^2. COMPARISON: CT dated 08/31/2025 FINDINGS: Again seen on the mine laborer image is a large stone in the region of the right ureteropelvic junction. Subsequent image demonstrates retrograde contrast injection into the right ureter extension beyond the stone into the right renal collecting system or there is mild right hydronephrosis. Final image demons trates a right internal ureteral stent with the distal loop in the bladder. IMPRESSION: 1. Right nephrolithiasis and placement of a right internal ureteral stent. Unclear from the provided images whether the stone remains in place and would correlate with procedure note for further detail. Reviewed, dictated and finalized at location A. ING LINE WORKER IMPRESSION: 1. Right nephrolithiasis and placement of a right internal ureteral stent. Uncl ear from the provided images whether the stone remains in place and would corre late with procedure note for further detail.
--- NOTE | ~2025-08-31 | CT_ITS ---
EXAMINATION: CT abdomen pelvis w con DATE: 09/01/2025 00:09 INDICATION: Kidney pain. TECHNIQUE: Computed tomography (CT) of the abdomen and pelvis was performed with 100 mL Omnipaque 350 intravenous contrast. Automated exposure control and iterative reconstruction technique were employed. The dose-length product was 866.79 mGy-cm. COMPARISON: CT abdomen and pelvis 08/21/2025 FINDINGS: The visualized portions of the lung bases demonstrate mild atelectasis. Again seen is elevation of left hemidiaphragm. No pleural effusion. The heart size is normal. There are coronary artery calcifications. No pericardial effusion. There is a small sliding hiatal hernia. Calcifications in the liver and spleen are consistent with old granulomatous disease. The gallbladder, pancreas, and adrenal glands are normal. There is a 4 mm cyst in right kidney. There is a 5 mm stone in right kidney. There is moderate right hydronephrosis. There is a 1.6 cm stone at right ureteropelvic junction. There is a 12 mm cyst in left kidney. There is a left inguinal hernia containing fat. The prostate is mildly enlarged. There is diverticulosis of the colon without evidence of diverticulitis. The appendix is normal. There are no dilated loops of bowel. There are no pathologically enlarged lymph nodes. There is no free intraperitoneal fluid. There is moderate spondylosis and severe lumbar spondylosis. There is a chronic burst fracture of L1. IMPRESSION: 1. 1.6 cm stone at right ureteropelvic junction with moderate right hydronephrosis. 2. Nonobstructing right kidney stone. Reviewed, dictated and finalized at location E. UMER INSIGHTS SPECIALIST IMPRESSION: 1. 1.6 cm stone at right ureteropelvic junction with moderate right hydronephro sis. 2. Nonobstructing right kidney stone.
--- OUTSIDE RECORDS SUMMARY | 2025-08-31 21:25 | XMS_ITS | Clinical Summary ---
Author Organization [facility] Address [address] [place] [address] Care Team Providers Care Instructional Media Services Technician Name Role Phone No, Pcp DIRECT CARE PROVIDER Primary Care Provider Unavailabl e Social History Tobacco Use Types Packs/Day Years Used Date Smoking Tobacco: Never Assessed Sex and Gender Information Value Date Recorded Sex Assigned at Not on file Legal Sex Male 4:42 PM EST Gender Identity Not on file Sexual Orientation Not on file Plan of Treatment Not on file Medical Devices Not on file Care Teams Instructional Media Services Technician Relationship Specialty Start Date End Date No, Pcp, DIRECT CARE PROVIDER N/A Do not use PCP - General Family Medicine 07/26/20
[2025-08-31 21:26] VITALS: BP 140/87; PULSE 92; RESP 18; TEMP 36.6; O2SAT 100
[2025-08-31 23:12] VITALS: BP 138/87; PULSE 80; RESP 17; O2SAT 99
[2025-08-31 23:17] LABS: Hematocrit 27.6 % (42.0-52.0); Hemoglobin 9.1 g/dL (14.0-18.0); Immature Granulocyte Percent A 2.2 % (0-0.5); Lymphocytes Absolute Auto 1.23 K/mm3 (0.9-3.2); Mean Corpuscular HGB Conc 33.0 g/dl (32-36); Mean Corpuscular Hemoglobin 30.8 pg (26-34); Mean Corpuscular Volume 93.6 fl (80-100); Nucleated Red Blood Cells Absolute Auto 0.000 K/mm3 (0.0-0.012); Nucleated Red Blood Cells Perc 0.0 % (0.0-0.2); Platelet Count Result 332 k/mm3 (150-375); Red Blood Count 2.95 M/mm3 (4.6-6.20); White Blood Count 13.4 K/mm3 (4.5-10.0)
[2025-08-31 23:30] LABS: INR 1.1; Prothrombin Time 14.4 Seconds (11.1-14.7)
[2025-08-31 23:31] LABS: Partial Thromboplastin Time 40.3 Seconds (22.3-36.8)
[2025-08-31] MEDS: MORPHINE SULFATE (*CRX) 4 MG/ML INJ IV PUSH (23:31)
[2025-08-31 23:34] LABS: Alanine Aminotransferase 40 U/L (6-50); Albumin Level 2.9 g/dL (3.5-5.1); Alkaline Phosphatase 118 U/L (38-126); Anion Gap 2 mmol/L (4-12); Aspartate Amino Transferase 49 U/L (17-59); Bilirubin,Total 0.8 mg/dL (0.2-1.3); Blood Urea Nitrogen 17 mg/dL (9-20); Calcium 8.4 mg/dL (8.4-10.2); Carbon Dioxide 28 mmol/L (22-30); Chloride 101 mmol/L (98-107); Estimated CRCL calculation 56 ml/min; Estimated Glomerular Filt Rate 55; Glucose 210 mg/dL (65-110); Lipase 271 U/L (23-300); Potassium 4.4 mmol/L (3.4-5.0); Sodium 131 mmol/L (137-145); Total Protein 6.5 g/dL (6.3-8.2)
[2025-09-01] VITALS (17 sets, daily range): BP systolic 97–141; BP diastolic 64–92; PULSE 68–118; RESP 16–24; TEMP 36.1–37.7; O2SAT 95–100; BMI 29.8
[2025-09-01 00:06] LABS: Add Urine Microscopic? YES; Appearance Urine Clear (Clear); Glucose Urine UA Trace mg/dL (Negative); Specific Grav Ur >= 1.030 (1.001-1.035)
[2025-09-01 00:07] LABS: Leukocyte Esterase Ur Trace LEU/UL (Negative); Nitrate Urine Negative (Negative)
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
[2025-09-01] MEDS: levoFLOXacin 750 MG/D5W 150 ML 750 MG/150 ML BAG 100 MG IVPB (01:37)
[2025-09-01] MEDS: HYDROmorphone HCL INJ (*CRX) 1 MG/ML SYR 0.5 MG IV PUSH ×3 (01:49→09:32)
[2025-09-01] MEDS: ONDANSETRON INJ 4 MG/2 ML VIAL IV PUSH (01:49)
[2025-09-01 02:02] LABS: Hematocrit 28.9 % (42.0-52.0); Hemoglobin 9.6 g/dL (14.0-18.0)
--- NOTE | 2025-09-01 03:23 | WPCEDHO ---
ED Hand Off Checklist All vitals saved:Yes IV Site documented:Yes All med administrations documented:Yes Triage Note Triage Note pt ambulated to ED w c/o kidney 08/31/25 21:26 infection and lower abd pain since the . pt was here last Tuesday and was dx with kidney infection and prescribed an antibiotic. Pt went to on Tuesday and prescribed a different antibiotic and saw his primary on Tuesday. when asked where the pain is pt states in his kidneys. pt states he still has a kidney stone in his R kidney. Allergies Penicillins Allergy (Unknown, Verified 08/31/25 23:13) Hives Patient received ceftriaxone October 2023 Family History (Last Reviewed 08/27/25 @ 10:19 by Shan Lewis MD) Father Family history of arthritis History of blood clots Cerebrovascular accident Renal stones Mother Renal stones Sibling Renal stones Other Gallbladder problem Administered/Completed Medications Discontinued Medications Hydromorphone HCl (Hydromorphone Hcl Inj (*Crx) 1 Mg/Ml Syr) 0.5 mg IV PUSH ONCE STA Stop: 09/01/25 01:40 Last Admin: 09/01/25 01:49 Dose: 0.5 mg Documented By: DEEPAK Levofloxacin/Dextrose (Levaquin 750 Mg/D5w 150 Ml) 750 mg in 150 mls @ 100 mls/hr IVPB ONCE STA Stop: 09/01/25 02:52 Last Infusion: 09/01/25 03:22 Dose: Infused Documented By: Admin: 09/01/25 01:37 Dose: 100 mls/hr Documented By: DEEPAK Morphine Sulfate (Morphine Sulfate (*Crx) 4 Mg/Ml Inj) 4 mg IV PUSH ONCE STA Stop: 08/31/25 23:27 Last Admin: 08/31/25 23:31 Dose: 4 mg Documented By: DEEPAK Ondansetron HCl (Ondansetron Inj 4 Mg/2 Ml Vial) 4 mg IV PUSH ONCE STA Stop: 09/01/25 01:45 Last Admin: 09/01/25 01:49 Dose: 4 mg Documented By: DEEPAK Interventions/Assessments IV / Saline Lock, Insert Start: 08/31/25 21:26 Freq: Status: Active Protocol: Document 08/31/25 23:07 [facility] (Rec: 08/31/25 23:07 [facility] [id number]) IV Assessment Peripheral Access Right Antecubital IV Catheter Access Initiated IV Insertion Date 08/31/25 IV Insertion Time 23:07 Catheter Gauge 18 IV Insertion 1 Attempts Ultrasound Used for No Placement IV Site Assessment WNL IV Care and WNL Maintenance PA: Gastrointestinal Assessment Start: 08/31/25 21:26 Freq: Status: Active Protocol: Document 08/31/25 23:12 [facility] (Rec: 08/31/25 23:13 [facility] [id number]) GI Assessment Gastrointestinal Nausea,Pain Symptoms Description Soft All Quadrants Bowel Sounds Active Pattern Normal Nausea/Vomiting Assessment Nausea Frequency Intermittent Emesis Frequency None PA: Genitourinary Assessment Start: 08/31/25 23:11 Freq: Status: Active Protocol: Document 08/31/25 23:12 [facility] (Rec: 08/31/25 23:13 [facility] [id number]) Infection Risk Screen Urinary Devices None Present Prior to Hospital Arrival Assessment Genitourinary Flank Pain Symptoms Voiding Method Toilet Urine Color Dark,Yellow Last Vital Signs Temperature 98.3 F 09/01/25 02:27 Pulse Rate 102 H 09/01/25 02:27 Respiratory Rate 18 09/01/25 02:27 Pulse Oximetry 96 09/01/25 02:27 Blood Pressure 117/69 09/01/25 02:27 Blood Pressure Mean 85 09/01/25 02:27 Blood Pressure Position Sitting 09/01/25 00:44 Oxygen Delivery Room Air 08/31/25 21:26 Weight 89.6 kg 08/31/25 21:26 Last Result - Abnormals Only WBC 13.4 K/mm3 (4.5-10.0) H 08/31/25 23:08 RBC 2.95 M/mm3 (4.6-6.20) L 08/31/25 23:08 Hgb 9.6 g/dL (14.0-18.0) L 09/01/25 01:55 Hct 28.9 % (42.0-52.0) L 09/01/25 01:55 MPV 11.1 fl (7.4-10.4) H 08/31/25 23:08 Immature Gran % (Auto) 2.2 % (0-0.5) H 08/31/25 23:08 Neut % (Auto) 79.7 % (45.5-73.1) H 08/31/25 23:08 Lymph % (Auto) 9.2 % (18.3-44.2) L 08/31/25 23:08 [place] # (Auto) 1.0 K/mm3 (0.1-0.6) H 08/31/25 23:08 Abs Immat Gran (auto) 0.29 K/mm3 (0.00-0.031) H 08/31/25 23:08 Absolute Neuts (auto) 10.7 K/mm3 (1.3-6.7) H 08/31/25 23:08 APTT 40.3 Seconds (22.3-36.8) H 08/31/25 23:08 Sodium 131 mmol/L (137-145) L 08/31/25 23:08 Anion Gap 2 mmol/L (4-12) L 08/31/25 23:08 Creatinine 1.31 mg/dL (0.7-1.3) H 08/31/25 23:08 Estimated GFR 55 (59-) L 08/31/25 23:08 Glucose 210 mg/dL (65-110) H 08/31/25 23:08 Albumin 2.9 g/dL (3.5-5.1) L 08/31/25 23:08 Urine Protein 1+ mg/dL (Negative) H 08/31/25 23:08 Urine Glucose (UA) Trace mg/dL (Negative) H 08/31/25 23:08 Ur Blood (Man) 1+ (Negative) H 08/31/25 23:08 Leukocyte Esterase Rfl Trace FAUSTINO/UL (Negative) H 08/31/25 23:08 Urine RBC 6-10 /hpf (0-2) H 08/31/25 23:08 Urine WBC 11-20 /hpf (0-3) H 08/31/25 23:08 Most Recent Suicide Severity Rating Suicide Severity Rating NO RISK INDICATED 08/31/25 21:26
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
--- NOTE | 2025-09-01 06:16 | PCRCNOTE ---
Bipap/Cpap home unit not brought in and patient does not request one from [facility] at this time.
[2025-09-01 06:18] LABS: Hematocrit 28.4 % (42.0-52.0); Hemoglobin 9.3 g/dL (14.0-18.0)
[2025-09-01] MEDS: LACTATED RINGERS 1,000 ML 75 ML IV CONT (07:00)
[2025-09-01 07:05] LABS: Immature Reticulocyte Fraction 21.0 % (3.0-15.9); Reticulocyte Hemoglobin Conten 31.6 pg (28.2-36.6); Reticulocytes Absolute 0.06 10^6/uL (0.02-0.10)
[2025-09-01 07:22] LABS: Bilirubin,Total 0.8 mg/dL (0.2-1.3)
[2025-09-01 07:24] LABS: Iron 28 ug/dL (49-181)
[2025-09-01 07:28] LABS: Hemoglobin A1C 8.0 % (<5.7)
[2025-09-01 07:29] LABS: Transferrin 130 mg/dL (206-381)
[2025-09-01 07:34] LABS: Percent Iron Saturation 14 % (20-50)
[2025-09-01 08:01] LABS: Thyroid Stimulating Hormone Reflex 1.050 uIU/mL (0.465-4.68)
[2025-09-01 08:05] LABS: Ferritin 795.00 ng/mL (11.1-264)
[2025-09-01 08:52] LABS: Vitamin B12 > 1000.0 pg/mL (239-931)
--- NOTE | 2025-09-01 09:17 | P.PNIM_ITS ---
Assessment and Plan Assessment and Plan (1) Sepsis: Code(s): A41.9 - Sepsis, unspecified organism Status: Acute Assessment and Plan: -the patient has an elevated white count. White blood count 13.4. the patient was treated outpatient for pyelonephritis. Blood and urine cultures were negative earlier this month. Fever and tachycardia resolved -continue with IV fluids. -blood cultures pending. -the patient was started on Levaquin. -awaiting Urology eval (2) Ureterolithiasis: Code(s): N20.1 - Calculus of ureter Status: Acute Assessment and Plan: -please see official CT read per radiologist. Right obstructive renal stone. -it is urology has been consulted. -continue with IV fluids -strain all urine. continue above care (3) Anemia: Code(s): D64.9 - Anemia, unspecified Status: Acute Assessment and Plan: Patient noted melena stools the last couple of days FOBT positive in the ER, Hb 9.3 and isat 14 Start iron replacement once infection is under control PPI and GI consulted (4) HTN (hypertension): Qualifiers: Hypertension type: essential hypertension Qualified Code(s): I10 - Essential (primary) hypertension Code(s): I10 - Essential (primary) hypertension Status: Acute Assessment and Plan: -the patient is NPO and his lisinopril was placed on hold. -p.r.n. hydralazine has been ordered. -current blood pressure is 141/76. (5) HLD (hyperlipidemia): Code(s): E78.5 - Hyperlipidemia, unspecified Status: Acute Assessment and Plan: -the patient is NPO at this time in his rosuvastatin is on hold. (6) Diabetes mellitus: Qualifiers: Diabetes mellitus type: type 2 Diabetes mellitus nursing home insulin use: without extermination inspector use Diabetes mellitus complication status: without complication Qualified Code(s): E11.9 - Type 2 diabetes mellitus without complications Code(s): E11.9 - Type 2 diabetes mellitus without complications Status: Acute Assessment and Plan: -Accu-Cheks q.6 hours with hypoglycemic protocol and sliding scale insulin. -check A1c if not performed in the last 3 months. Plan DVT prophylaxis on SCDs and Lovenox on hodl pending GI bleed rule out Subjective Date/time seen: 12/14/25 09:17 Interval history: Comfortable at bedside Noted right flank pain has improved and reported black stool the past few days prior to admission Review of Systems Constitutional: Constitutional: Reports as per HPI and Reports no additional constitutional complaints Eyes: Eyes: Reports as per HPI and Reports no additional eye complaints ENT: Reports system reviewed and no additional complaints, except as documented and Reports Normal hearing present Cardiovascular: Cardiovascular: Reports no additional cardiovascular complaints Respiratory: Respiratory: Reports as per HPI and Reports no additional respiratory complaints Gastrointestinal: Gastrointestinal: Reports as per HPI and Reports no additional gastrointestinal complaints Musculoskeletal: Musculoskeletal: Reports no additional musculoskeletal complaints Integumentary/Breasts: Skin/Breast: Reports system reviewed and no additional complaints, except as docu Neurologic: Reports system reviewed and no additional complaints, except as documented and Reports Normal hearing present Psychiatric: Psychiatric: Reports no additional psychiatric complaints and Reports as per HPI Hematologic/Lymphatic: Hematologic/Lymphatic: Reports no additional hematologic/lymphatic complaints Allergic/Immunologic: Allergic/Immunologic: Reports no additional allergic/immunologic complaints Exam Const: General: cooperative, healthy appearing, comfortable, no acute distress, well developed, awake, Physically active, average body habitus and well nourished Nutritional Appearance: average body habitus and well nourished Orientation/consciousness: oriented to person, oriented to place, oriented to time and patient oriented x3 Limitations: no limitations HENMT: Head: normal to inspection, No palpable skull fracture present, normocephalic, atraumatic and abrasion Eyes: General: appearance normal, both eyes and all related structures Alignment and Position: alignment normal Periorbital: periorbital findings normal Eyelids: eyelids normal EOM: EOMs intact bilaterally Neck: Neck: normal visual inspection, full ROM and no lymphadenopathy Chest: Chest palpation & inspection: normal inspection of the chest Resp: Effort & Inspection: normal respiratory effort Auscultation: clear to auscultation bilaterally Cardio: Palpation: normal PMI Rate: tachycardic Rhythm: regular rhythm Heart sounds: S1 normal heart sound present and S2 normal heart sound present Peripheral pulses: Peripheral pulses 2+ throughout GI: Inspection: normal to inspection Auscultation: normal bowel sounds Other: Mild Right-sided cva tender Skin: General skin exam: normal color Lesions: no lesions Rashes: no rashes Trauma: no lacerations or abrasions Wounds: no wounds Nails: normal Other: Normal aging male pattern balding Neuro: General: oriented to person, oriented to place, oriented to time and patient oriented x3 Cranial nerves: Yes Normal hearing present Cognition (Neuro): normal cognition Speech: normal speech Gait exam (Neuro): Normal gait present Motor exam (neuro): 5/5 motor strength present throughout Sensory Exam: normal sensation Extrem: General: normal to inspection Right upper extremity: normal to inspection and shoulder/upper arm Left upper extremity: normal to inspection and shoulder/upper arm Right lower extremity: normal to inspection Left lower extremity: normal to inspection Psych: Appearance: grossly normal Mental Status: mental status grossly normal Speech and movement: Normal speech and movement present Affect: normal affect Attitude: cooperative Thought process: Normal thought process present Insight: Good insight present (Psych) Judgement: Good judgement present (Psych) Objective Data Vital Signs Vital Signs: Vital Signs - 24 hr 08/31/25 21:26 08/31/25 23:12 09/01/25 00:44 Temperature 98 F Pulse Rate 92 80 90 Respiratory Rate 18 17 18 Blood Pressure 140/87 138/87 127/70 Pulse Oximetry 100 99 98 Oxygen Delivery Room Air 09/01/25 02:07 09/01/25 02:27 09/01/25 03:24 Temperature 98.3 F Pulse Rate 95 102 H 94 Respiratory Rate 18 18 18 Blood Pressure 130/65 117/69 119/79 Pulse Oximetry 95 96 95 Oxygen Delivery 09/01/25 03:39 09/01/25 04:01 09/01/25 06:33 Temperature 99.9 F H 97.6 F Pulse Rate 100 109 H 68 Respiratory Rate 17 20 20 Blood Pressure 119/79 140/92 H 141/78 H Pulse Oximetry 97 100 100 Oxygen Delivery Intake/Output Intake/Output: Intake & Output 08/29/25 08/30/25 08/31/25 09/01/25 23:59 23:59 23:59 23:59 Intake Total 150 Balance 150 Meds/Results Medications: Active Medications Generic Name Dose Route Start Last Admin Trade Name Freq PRN Reason Stop Dose Admin Albuterol 2 puff 09/01/25 06:32 Albuterol Sulfate (*Sp) Aerosol 1 Puff INHALATION Q4H PRN Shortness Of Breath Or Wheezing Dextrose 12.5 gm 09/01/25 06:35 Dextrose 50% 25 Gm/50 Ml Syringe IV PUSH PRN PRN Hypoglycemia Protocol Glucagon 1 mg 09/01/25 06:35 Glucagon For Inj 1 Mg Vial IM PRN PRN Hypoglycemia Protocol Glucose 15 gm 09/01/25 06:35 Glucose Oral Gel 15 Gm Of Glucse In 37.5 Gm Tube PO PRN PRN Hypoglycemia Protocol Hydralazine HCl 10 mg 09/01/25 06:45 Hydralazine Hcl 20 Mg/Ml Vial IV PUSH Q8H PRN Blood Pressure - High Hydromorphone HCl 0.5 mg 09/01/25 06:31 Hydromorphone Hcl Inj (*Crx) 1 Mg/Ml Syr IV PUSH Q3H PRN Pain Rated 7-10 Lactated Ringer's 1,000 mls @ 75 mls/hr 09/01/25 06:35 09/01/25 07:00 Lr - Lactated Ringers Iv IV CONT 75 mls/hr .[id number] NAZIA Administration Dextrose 1,000 mls @ 100 mls/hr 09/01/25 06:35 Dextrose 5% 1,000 Ml IVPB PRN PRN Hypoglycemia Protocol Levofloxacin/Dextrose 500 mg in 100 mls @ 100 mls/hr 09/02/25 01:00 Levaquin 500 Mg/D5w 100 Ml IVPB Q24H NAZIA Insulin Aspart 2 - 5 units 09/01/25 12:00 Insulin Aspart (*Bkc) 100 Units/Ml SUB-Q Q6HR [facility] Protocol Radiology Results: ITS Impressions Abdomen/Pelvis CT 09/01/25 08:39 IMPRESSION: 1. 1.6 cm stone at right ureteropelvic junction with moderate right hydronephrosis. 2. Nonobstructing right kidney stone. Labs Labs: Laboratory Results - last 24 hr 08/31/25 09/01/25 09/01/25 23:08 01:55 06:01 WBC 13.4 H RBC 2.95 L Hgb 9.1 L D 9.6 L 9.3 L Hct 27.6 L 28.9 L 28.4 L MCV 93.6 D MCH 30.8 MCHC 33.0 RDW 13.7 Plt Count 332 D MPV 11.1 H Immature Gran % (Auto) 2.2 H Neut % (Auto) 79.7 H Lymph % (Auto) 9.2 L [place] % (Auto) 7.5 Eos % (Auto) 1.1 Baso % (Auto) 0.3 Lymph # (Auto) 1.23 [place] # (Auto) 1.0 H Eos # (Auto) 0.2 Baso # (Auto) 0.0 Abs Immat Gran (auto) 0.29 H Absolute Neuts (auto) 10.7 H Absolute Nucleated RBC 0.000 Nucleated RBC % 0.0 Absolute Retic Percent Retic Immature Retic Fraction Retic Hgb Content PT 14.4 INR 1.1 APTT 40.3 H Sodium 131 L Potassium 4.4 Chloride 101 Carbon Dioxide 28 Anion Gap 2 L BUN 17 D Creatinine 1.31 H Estim Creat Clear Calc 56 Estimated GFR 55 L Glucose 210 H Hemoglobin A1c Calcium 8.4 Iron TIBC % Saturation Transferrin Ferritin Total Bilirubin 0.8 Direct Bilirubin AST 49 ALT 40 Alkaline Phosphatase 118 Lactate Dehydrogenase Total Protein 6.5 Albumin 2.9 L Lipase 271 Vitamin B12 Folate TSH (Reflex) Urine Color Yellow Urine Appearance Clear Urine pH 6.0 Ur Specific [place] >= 1.030 Urine Protein 1+ H Urine Glucose (UA) Trace H Urine Ketones Negative Ur Blood (Man) 1+ H Urine Nitrate Negative Urine Bilirubin Negative Urine Urobilinogen 0.2 Leukocyte Esterase Rfl Trace H Urine RBC 6-10 H Urine WBC 11-20 H KATE, IgG Interpret KATE, Poly Interpret KATE, Complement Interp Indirect Antiglob Test 09/01/25 06:44 WBC RBC Hgb Hct MCV MCH MCHC RDW Plt Count MPV Immature Gran % (Auto) Neut % (Auto) Lymph % (Auto) [place] % (Auto) Eos % (Auto) Baso % (Auto) Lymph # (Auto) [place] # (Auto) Eos # (Auto) Baso # (Auto) Abs Immat Gran (auto) Absolute Neuts (auto) Absolute Nucleated RBC Nucleated RBC % Absolute Retic 0.06 Percent Retic 1.89 Immature Retic Fraction 21.0 H Retic Hgb Content 31.6 PT INR APTT Sodium Potassium Chloride Carbon Dioxide Anion Gap BUN Creatinine Estim Creat Clear Calc Estimated GFR Glucose Hemoglobin A1c 8.0 H Calcium Iron 28 L TIBC 195 L % Saturation 14 L Transferrin 130 L Ferritin 795.00 H Total Bilirubin 0.8 Direct Bilirubin 0.0 AST ALT Alkaline Phosphatase Lactate Dehydrogenase 131 Total Protein Albumin Lipase Vitamin B12 > 1000.0 H Folate 15.0 TSH (Reflex) 1.050 Urine Color Urine Appearance Urine pH Ur Specific [place] Urine Protein Urine Glucose (UA) Urine Ketones Ur Blood (Man) Urine Nitrate Urine Bilirubin Urine Urobilinogen Leukocyte Esterase Rfl Urine RBC Urine WBC KATE, IgG Interpret Not Performed KATE, Poly Interpret Negative KATE, Complement Interp Not Performed Indirect Antiglob Test Negative Quality VTE Prophylaxis VTE prophylaxis: mechanical ordered
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
--- NOTE | 2025-09-01 12:20 | WPDHPUPDATE1 ---
History and Physical Update Update Date/Time: 09/01/25 12:20 History and Physical has been reviewed, including an updated exam of the patient. There are NO changes in the patient's condition. Risks, benefits, and alternatives have been discussed and questions answered. Patient agrees to proceed with procedure.
--- NOTE | 2025-09-01 12:21 | WPDHPUPDATE1 ---
History and Physical Update Update Date/Time: 09/01/25 12:21 History and Physical has been reviewed, including an updated exam of the patient. There are NO changes in the patient's condition. Risks, benefits, and alternatives have been discussed and questions answered. Patient agrees to proceed with procedure.
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
--- NOTE | 2025-09-01 12:24 | ADMGEN ---
This patient, Francisco Leroy, was admitted to [facility] Surg Room 329-01. Patient/family oriented to hospital policies and general routines including ID bracelet, bed and alarms, visiting hours, pain management, procedures, bathroom and other care routines, personal items, smoking policy, room service/diet, and visiting hours. Information on how to activate the Rapid Response Team has been discussed. Patient/Family are encouraged to report perceived risks to care and to ask questions if they do not understand what they are told or what they should do.
--- NOTE | 2025-09-01 12:24 | PC.NURSE ---
To OR per [ARIELLE LORENZ AND VANESSA TECH], IV [ ]. Report given to [ ].
[2025-09-01] MEDS: ceFAZolin 2 GM in SODIUM CHLORIDE 0.9% IV 50 ML 100 ML IVPB (12:25)
--- NOTE | 2025-09-01 12:46 | W.PM.PROC2 ---
Procedure Note - Detailed Date of Procedure 09/01/25 Pre-op Diagnosis Right ureteral stone Post-op Diagnosis Same Procedure Performed 1. Cystoscopy 2. Right retrograde pyelogram with intraoperative interpretation 3. Stone manipulation without extraction 4. Right ureteral stent placement Surgeon Thiago Bauer MD Anesthesia General Findings 1. Cystourethroscopy revealed an approximately 20 [place] bulbar urethral stricture about 1-2 cm distal to the rhabdo sphincter. Otherwise no notable stricture disease. Lateral lobe hyperplasia of the prostate with elevated bladder neck. Orthotopic ureteral orifices bilaterally with no suspicious lesions, tumors, stones or active bleeding in the lower urinary tract 2. Spot film over the right kidney revealed a large radiopaque stone overlying the right proximal ureter 3. Right-sided retrograde pyelogram using a 50 50 mixture of contrast and saline showed a large filling defect in the right proximal ureter with [id number] hydronephrosis without contrast extravasation 4. During advancement of a wire into the right kidney, the stone was felt to be rather impacted as the wire was bouncing in curling off of it. Eventually, after advancing the open-ended catheter just distal to the stone I was able to negotiate the wire proximal to the stone and into the kidney confirmed under fluoroscopy. During this time, the stone was felt and seen under fluoroscopy to be manipulated but not extracted 5. Successful placement of right ureteral stent without strings attached Description of Procedure After informed consent was obtained, the patient was brought back to the operating theatre and placed in the supine position on the operating table. Pre-operative antibiotics were confirmed to have been administered. Anesthesia was induced. The patient was moved into the dorsal lithotomy position and prepped and draped in the standard sterile fashion for an endoscopic case. All pressure points were padded. Bilateral sequential compression devices were on and noted to be functioning. A formal timeout was performed with Dr. Bauer in attendance to confirm the correct patient, site/laterality, and procedure and all were in agreement to proceed. To begin with, I atraumatically advanced a lubricated 22-[place] rigid cystoscope transurethrally into the patient's bladder. During this time I noted an approximately 20 [place] bulbar urethral stricture 1-2 cm distal to the rhabdo sphincter which was gently able to be dilated and traversed with the cystoscope. Pancystourethroscopy was performed with findings as noted above. Attention was then turned to the right ureteral orifice, which was gently cannulated with a Sensor wire which was advanced up to the level of the right mid to proximal distal ureter under fluoroscopy. Over top of the wire, a 5-[place] open ended catheter was advanced to the level of the right mid ureter. The wire was removed keeping the open-ended catheter in place and a right retrograde pyelogram was performed using a 50:50 mixture of saline and contrast with findings as noted above. The wire was then replaced through the open-ended catheter and was attempted to be advanced up to the level of the right kidney on the fluoroscopy. However, due to the large impacted stone in the right proximal ureter the wire was coiling and bouncing off of it. I then advanced the open-ended catheter just distal to the stone and was eventually able to negotiate the wire into the right kidney under fluoroscopy. During this time the stone was felt and seen under fluoroscopy to be manipulated but not extracted. Afterwards, the open-ended catheter was removed in Seldinger fashion, leaving the wire in place. Next, I noted some cloudy urine emanating from the right ureteral orifice. Bladder urine was obtained as a specimen to be sent for urine culture. Over top of the wire, a 6-[place]ayan variable length JJ stent was advanced and the pusher was used to deploy the stent in place, confirming a good proximal curl in the right kidney under fluoroscopy and a good distal curl in the bladder under both fluoroscopic and direct cystoscopic vision. The patient's bladder was then emptied and the cystoscope was removed, essentially concluding the case. At the conclusion of the case all sponge, instrument, and sharp counts were correct x 2. The patient was then awoken from anesthesia and taken to the recovery room in stable condition. The patient tolerated the procedure well and there were no immediate complications noted. Disposition: The patient will be monitored in the PACU and be transferred back to his hospital room after clearing PACU protocol. From there, Urology recommends keeping patient in-house and awaiting his culture results in order to guide most appropriate antibiotic therapy. He will follow-up in the upcoming weeks for definitive endoscopic management of his right-sided urinary tract stones. Per the patient's preoperative wishes, no friend or family was notified after the surgery to provide postoperative update.
[2025-09-01] MEDS: LACTATED RINGERS 1,000 ML 30 ML IV CONT (12:52)
--- NOTE | 2025-09-01 13:47 | PC.NURSE ---
Returned from OR per [ ]. Report received from [obie ].
[2025-09-01 15:46] LABS: Hematocrit 26.5 % (42.0-52.0); Hemoglobin 8.9 g/dL (14.0-18.0)
--- NOTE | 2025-09-01 18:04 | PCRCNOTE ---
I asked patient if he wears a bipap or cpap at home and he stated he does but not all the time and he does not want to use our machines at this time.
[2025-09-01] MEDS: TAMSULOSIN HCL 0.4 MG CAPSULE PO (20:02)
[2025-09-01 21:16] LABS: Hematocrit 26.9 % (42.0-52.0); Hemoglobin 8.9 g/dL (14.0-18.0)
[2025-09-02] MEDS: levoFLOXacin 500 MG/D5W 100 ML 500 MG/100 ML BAG 100 MG IVPB (00:21)
[2025-09-02] MEDS: LACTATED RINGERS 1,000 ML 75 ML IV CONT ×2 (00:21→09:33)
[2025-09-02 05:46] VITALS: BP 129/72; PULSE 82; RESP 16; TEMP 36.3; O2SAT 99
[2025-09-02 05:53] LABS: Hematocrit 28.0 % (42.0-52.0); Hemoglobin 9.1 g/dL (14.0-18.0); Mean Corpuscular HGB Conc 32.5 g/dl (32-36); Mean Corpuscular Hemoglobin 30.7 pg (26-34); Mean Corpuscular Volume 94.6 fl (80-100); Platelet Count Result 370 k/mm3 (150-375); Red Blood Count 2.96 M/mm3 (4.6-6.20); White Blood Count 9.0 K/mm3 (4.5-10.0)
[2025-09-02 06:10] LABS: Anion Gap 2 mmol/L (4-12); Blood Urea Nitrogen 12 mg/dL (9-20); Calcium 8.4 mg/dL (8.4-10.2); Carbon Dioxide 30 mmol/L (22-30); Chloride 100 mmol/L (98-107); Estimated CRCL calculation 74 ml/min; Estimated Glomerular Filt Rate > 60; Glucose 181 mg/dL (65-110); Potassium 4.4 mmol/L (3.4-5.0); Sodium 132 mmol/L (137-145)
--- NOTE | 2025-09-02 08:37 | P.PNUR_ITS ---
Progress Note: A&P Assessment and Plan (1) Right ureteral calculus: Code(s): N20.1 - Calculus of ureter Status: Acute Assessment and Plan: - S/p Right ureteral stent placement 09/01/2025 for 1.6 cm Right UVJ stone; with non-obstructing Right renal stone as well - To be organized for Right URS on outpatient basis (2) Abnormal urinalysis: Code(s): R82.90 - Unspecified abnormal findings in urine Status: Acute Assessment and Plan: - UA with leuks, blood which may reflect UTI vs reactive changes from obstructing stone. UCx pending. - Once UCx results treat based on susceptibilities as indicated. (3) Ureteral stent present: Code(s): Z96.0 - Presence of urogenital implants Status: Acute Assessment and Plan: - Currently with minimal bother from ureteral stent, however, largely stationary with bedside urinal in hospital setting - Will send pt home on short course of tamsulosin, solifenacin and Pyridium to be used PRN for stent symptoms. Appropriate use of each medicaiton and side effect profiles reviewed with pt today. Subjective Subjective Date/Time Seen: 09/02/25 08:37 Interval history: NAEO; pt resting comfortably in bed. Mild dysuria which seems to be improving otherwise without stent symptoms. Exam Narrative: General: Alert, no acute distress Head: Normocephalic, atraumatic Eyes: Extraocular movements intact Neck: No JVD, trachea midline Respiratory: Symmetric chest rise, nonlabored breathing on room air CV: Normal rate, adequate peripheral perfusion Abdomen: Soft, nontender, nondistended : Right CVAT Skin: Warm/dry Extremities: No peripheral edema, no cyanosis Neuro: No focal deficits Psych: Answers questions appropriately, appropriate mood Objective Data Vital Signs Vital Signs: Vital Signs - 24 hr 09/01/25 12:52 09/01/25 13:00 09/01/25 13:15 Temperature 36.6 C Pulse Rate 93 92 90 Respiratory Rate 24 H 21 H 20 Blood Pressure 97/70 L 102/74 105/72 Pulse Oximetry 100 100 100 Oxygen Delivery Simple Face Mask Simple Face Mask Simple Face Mask Oxygen Flow Rate 8 8 8 09/01/25 13:17 09/01/25 13:30 09/01/25 13:45 Temperature Pulse Rate 91 91 92 Respiratory Rate 18 20 21 H Blood Pressure 110/72 120/75 138/79 Pulse Oximetry 100 97 98 Oxygen Delivery Simple Face Mask Room Air Room Air Oxygen Flow Rate 8 09/01/25 14:10 09/01/25 14:25 09/01/25 15:55 Temperature 36.1 C L 36.5 C 36.2 C L Pulse Rate 94 88 99 Respiratory Rate 18 16 18 Blood Pressure 128/64 130/73 124/75 Pulse Oximetry 96 95 98 Oxygen Delivery Oxygen Flow Rate 09/01/25 20:00 09/01/25 21:47 09/02/25 05:46 Temperature 36.1 C L 36.3 C L Pulse Rate 118 H 82 Respiratory Rate 19 16 Blood Pressure 127/80 129/72 Pulse Oximetry 99 99 Oxygen Delivery Room Air Oxygen Flow Rate Intake/Output Intake/Output: Intake & Output 08/30/25 08/31/25 09/01/25 09/02/25 23:59 23:59 23:59 23:59 Intake Total 1297 1040 Output Total 425 2450 Balance 872 -1410 Meds/Results Medications: Active Medications Generic Name Dose Route Start Last Admin Trade Name Freq PRN Reason Stop Dose Admin Albuterol 2 puff 09/01/25 06:32 Albuterol Sulfate (*Sp) Aerosol 1 Puff INHALATION Q4H PRN Shortness Of Breath Or Wheezing Dextrose 12.5 gm 09/01/25 06:35 Dextrose 50% 25 Gm/50 Ml Syringe IV PUSH PRN PRN Hypoglycemia Protocol Glucagon 1 mg 09/01/25 06:35 Glucagon For Inj 1 Mg Vial IM PRN PRN Hypoglycemia Protocol Glucose 15 gm 09/01/25 06:35 Glucose Oral Gel 15 Gm Of Glucse In 37.5 Gm Tube PO PRN PRN Hypoglycemia Protocol Hydralazine HCl 10 mg 09/01/25 06:45 Hydralazine Hcl 20 Mg/Ml Vial IV PUSH Q8H PRN Blood Pressure - High Hydromorphone HCl 0.5 mg 09/01/25 06:31 09/01/25 09:32 Hydromorphone Hcl Inj (*Crx) 1 Mg/Ml Syr IV PUSH 0.5 mg Q3H PRN Administration Pain Rated 7-10 Lactated Ringer's 1,000 mls @ 75 mls/hr 09/01/25 06:35 09/02/25 00:21 Lr - Lactated Ringers Iv IV CONT 75 mls/hr .[id number] NAZIA Administration Dextrose 1,000 mls @ 100 mls/hr 09/01/25 06:35 Dextrose 5% 1,000 Ml IVPB PRN PRN Hypoglycemia Protocol Levofloxacin/Dextrose 500 mg in 100 mls @ 100 mls/hr 09/02/25 01:00 09/02/25 00:21 Levaquin 500 Mg/D5w 100 Ml IVPB 100 mls/hr Q24H NAZIA Administration Insulin Aspart 2 - 5 units 09/01/25 17:00 09/01/25 17:12 Insulin Aspart (*Bkc) 100 Units/Ml SUB-Q Not Given TIDWM [facility] Protocol Phenazopyridine HCl 100 mg 09/01/25 13:52 Phenazopyridine Hcl 100 Mg Tablet PO TID PRN urinary discomfort Polyethylene Glycol 119 gm 09/02/25 20:00 Polyethylene Glycol 3350 238 Gm Bottle PO 09/03/25 05:01 BID@0500,2000 [facility] Tamsulosin HCl 0.4 mg 09/01/25 21:00 09/01/25 20:02 Tamsulosin Hcl 0.4 Mg Capsule PO 0.4 mg QHS NAZIA Administration Radiology Results: ITS Impressions Abdomen/Pelvis CT 09/01/25 08:39 IMPRESSION: 1. 1.6 cm stone at right ureteropelvic junction with moderate right hydronephrosis. 2. Nonobstructing right kidney stone. Retrograde Pyelogram 09/02/25 08:09 IMPRESSION: 1. Right nephrolithiasis and placement of a right internal ureteral stent. Unclear from the provided images whether the stone remains in place and would correlate with procedure note for further detail. Labs Labs: Laboratory Results - last 24 hr 09/01/25 09/01/25 09/01/25 06:44 11:38 12:56 WBC RBC Hgb Hct MCV MCH MCHC RDW Plt Count MPV Sodium Potassium Chloride Carbon Dioxide Anion Gap BUN Creatinine Estim Creat Clear Calc Estimated GFR Glucose POC Capillary Glucose 196 H 181 H Lactic Acid Calcium Vitamin B12 > 1000.0 H Folate 15.0 09/01/25 09/01/25 09/01/25 15:37 16:48 20:15 WBC RBC Hgb 8.9 L Hct 26.5 L MCV MCH MCHC RDW Plt Count MPV Sodium Potassium Chloride Carbon Dioxide Anion Gap BUN Creatinine Estim Creat Clear Calc Estimated GFR Glucose POC Capillary Glucose 191 H 284 H Lactic Acid Calcium Vitamin B12 Folate 09/01/25 09/02/25 09/02/25 21:10 05:13 07:15 WBC 9.0 RBC 2.96 L Hgb 8.9 L 9.1 L Hct 26.9 L 28.0 L MCV 94.6 MCH 30.7 MCHC 32.5 RDW 13.6 Plt Count 370 MPV 11.1 H Sodium 132 L Potassium 4.4 Chloride 100 Carbon Dioxide 30 Anion Gap 2 L BUN 12 D Creatinine 0.96 Estim Creat Clear Calc 74 Estimated GFR > 60 Glucose 181 H POC Capillary Glucose 211 H Lactic Acid 1.0 Calcium 8.4 Vitamin B12 Folate
[2025-09-02] MEDS: INSULIN ASPART (*BKC) 100 UNITS/ML SUB-Q ×3 (09:02→23:36)
--- NOTE | 2025-09-02 11:51 | P.PNIM_ITS ---
Assessment and Plan Assessment and Plan (1) Sepsis: Code(s): A41.9 - Sepsis, unspecified organism Status: Acute Assessment and Plan: Sepsis resolved the patient was treated outpatient for pyelonephritis. Blood and urine cultures were negative earlier this month. Fever and tachycardia resolved -blood and urine cultures pending. -continue Levaquin monitor (2) Ureterolithiasis: Code(s): N20.1 - Calculus of ureter Status: Acute Assessment and Plan: -please see official CT read per radiologist. Right obstructive renal stone. -s/p Cystoscopy with -continue with IV fluids -follow up urine and blood cultures continue levaquin continue above care (3) Anemia: Code(s): D64.9 - Anemia, unspecified Status: Acute Assessment and Plan: Patient noted melena stools the last couple of days FOBT positive in the ER, Hb 9.3 and isat 14 Started on IV iron 500/1000 For endoscopy tomorrow Continue PPI and GI following (4) HTN (hypertension): Qualifiers: Hypertension type: essential hypertension Qualified Code(s): I10 - Essential (primary) hypertension Code(s): I10 - Essential (primary) hypertension Status: Acute Assessment and Plan: -the patient is NPO and his lisinopril was placed on hold. -p.r.n. hydralazine has been ordered. -current blood pressure is 141/76. (5) HLD (hyperlipidemia): Code(s): E78.5 - Hyperlipidemia, unspecified Status: Acute Assessment and Plan: -the patient is NPO at this time in his rosuvastatin is on hold. (6) Diabetes mellitus: Qualifiers: Diabetes mellitus type: type 2 Diabetes mellitus chcf insulin use: without thermocouple tester use Diabetes mellitus complication status: without complication Qualified Code(s): E11.9 - Type 2 diabetes mellitus without complications Code(s): E11.9 - Type 2 diabetes mellitus without complications Status: Acute Assessment and Plan: -Accu-Cheks q.6 hours with hypoglycemic protocol and sliding scale insulin. -check A1c if not performed in the last 3 months. Plan GI bleed Patient reported melena stool prior to presentation FOBT positive and Iron deficiency anemia Contineu PPI and for endoscopy tomorrow GI following DVT prophylaxis on SCDs and Lovenox on hodl pending GI bleed rule out Subjective Date/time seen: 09/02/25 11:51 Interval history: Patient comfortable at bedside S/p cystoscopy and for Colonoscopy tomorrow Review of Systems Constitutional: Constitutional: Reports as per HPI and Reports no additional constitutional complaints Eyes: Eyes: Reports as per HPI and Reports no additional eye complaints ENT: Reports system reviewed and no additional complaints, except as documented and Reports Normal hearing present Cardiovascular: Cardiovascular: Reports no additional cardiovascular complaints Respiratory: Respiratory: Reports as per HPI and Reports no additional respiratory complaints Gastrointestinal: Gastrointestinal: Reports as per HPI and Reports no additional gastrointestinal complaints Musculoskeletal: Musculoskeletal: Reports no additional musculoskeletal complaints Integumentary/Breasts: Skin/Breast: Reports system reviewed and no additional complaints, except as docu Neurologic: Reports system reviewed and no additional complaints, except as documented and Reports Normal hearing present Psychiatric: Psychiatric: Reports no additional psychiatric complaints and Reports as per HPI Hematologic/Lymphatic: Hematologic/Lymphatic: Reports no additional hematologic/lymphatic complaints Allergic/Immunologic: Allergic/Immunologic: Reports no additional allergic/immunologic complaints Exam Const: General: cooperative, healthy appearing, comfortable, no acute distress, well developed, awake, Physically active, average body habitus and well nourished Nutritional Appearance: average body habitus and well nourished Orientation/consciousness: oriented to person, oriented to place, oriented to time and patient oriented x3 Limitations: no limitations HENMT: Head: normal to inspection, No palpable skull fracture present, normocephalic, atraumatic and abrasion Eyes: General: appearance normal, both eyes and all related structures Alignment and Position: alignment normal Periorbital: periorbital findings normal Eyelids: eyelids normal EOM: EOMs intact bilaterally Neck: Neck: normal visual inspection, full ROM and no lymphadenopathy Chest: Chest palpation & inspection: normal inspection of the chest Resp: Effort & Inspection: normal respiratory effort Auscultation: clear to auscultation bilaterally Cardio: Palpation: normal PMI Rate: tachycardic Rhythm: regular rhythm Heart sounds: S1 normal heart sound present and S2 normal heart sound present Peripheral pulses: Peripheral pulses 2+ throughout GI: Inspection: normal to inspection Auscultation: normal bowel sounds Other: Mild Right-sided cva tender Skin: General skin exam: normal color Lesions: no lesions Rashes: no rashes Trauma: no lacerations or abrasions Wounds: no wounds Nails: normal Other: Normal aging male pattern balding Neuro: General: oriented to person, oriented to place, oriented to time and patient oriented x3 Cranial nerves: Yes Normal hearing present Cognition (Neuro): normal cognition Speech: normal speech Gait exam (Neuro): Normal gait present Motor exam (neuro): 5/5 motor strength present throughout Sensory Exam: normal sensation Extrem: General: normal to inspection Right upper extremity: normal to inspection and shoulder/upper arm Left upper extremity: normal to inspection and shoulder/upper arm Right lower extremity: normal to inspection Left lower extremity: normal to inspection Psych: Appearance: grossly normal Mental Status: mental status grossly normal Speech and movement: Normal speech and movement present Affect: normal affect Attitude: cooperative Thought process: Normal thought process present Insight: Good insight present (Psych) Judgement: Good judgement present (Psych) Objective Data Vital Signs Vital Signs: Vital Signs - 24 hr 09/01/25 12:52 09/01/25 13:00 09/01/25 13:15 Temperature 97.8 F Pulse Rate 93 92 90 Respiratory Rate 24 H 21 H 20 Blood Pressure 97/70 L 102/74 105/72 Pulse Oximetry 100 100 100 Oxygen Delivery Simple Face Mask Simple Face Mask Simple Face Mask Oxygen Flow Rate 8 8 8 09/01/25 13:17 09/01/25 13:30 09/01/25 13:45 Temperature Pulse Rate 91 91 92 Respiratory Rate 18 20 21 H Blood Pressure 110/72 120/75 138/79 Pulse Oximetry 100 97 98 Oxygen Delivery Simple Face Mask Room Air Room Air Oxygen Flow Rate 8 09/01/25 14:10 09/01/25 14:25 09/01/25 15:55 Temperature 97.0 F L 97.7 F 97.1 F L Pulse Rate 94 88 99 Respiratory Rate 18 16 18 Blood Pressure 128/64 130/73 124/75 Pulse Oximetry 96 95 98 Oxygen Delivery Oxygen Flow Rate 09/01/25 20:00 09/01/25 21:47 09/02/25 05:46 Temperature 97.0 F L 97.4 F L Pulse Rate 118 H 82 Respiratory Rate 19 16 Blood Pressure 127/80 129/72 Pulse Oximetry 99 99 Oxygen Delivery Room Air Oxygen Flow Rate Intake/Output Intake/Output: Intake & Output 08/30/25 08/31/25 09/01/25 09/02/25 23:59 23:59 23:59 23:59 Intake Total 1297 1730 Output Total 351 3520 Balance 872 -720 Meds/Results Medications: Active Medications Generic Name Dose Route Start Last Admin Trade Name Freq PRN Reason Stop Dose Admin Albuterol 2 puff 09/01/25 06:32 Albuterol Sulfate (*Sp) Aerosol 1 Puff INHALATION Q4H PRN Shortness Of Breath Or Wheezing Dextrose 12.5 gm 09/01/25 06:35 Dextrose 50% 25 Gm/50 Ml Syringe IV PUSH PRN PRN Hypoglycemia Protocol Glucagon 1 mg 09/01/25 06:35 Glucagon For Inj 1 Mg Vial IM PRN PRN Hypoglycemia Protocol Glucose 15 gm 09/01/25 06:35 Glucose Oral Gel 15 Gm Of Glucse In 37.5 Gm Tube PO PRN PRN Hypoglycemia Protocol Hydralazine HCl 10 mg 09/01/25 06:45 Hydralazine Hcl 20 Mg/Ml Vial IV PUSH Q8H PRN Blood Pressure - High Hydromorphone HCl 0.5 mg 09/01/25 06:31 09/01/25 09:32 Hydromorphone Hcl Inj (*Crx) 1 Mg/Ml Syr IV PUSH 0.5 mg Q3H PRN Administration Pain Rated 7-10 Lactated Ringer's 1,000 mls @ 75 mls/hr 09/01/25 06:35 09/02/25 09:33 Lr - Lactated Ringers Iv IV CONT 75 mls/hr .[id number] NAZIA Administration Dextrose 1,000 mls @ 100 mls/hr 09/01/25 06:35 Dextrose 5% 1,000 Ml IVPB PRN PRN Hypoglycemia Protocol Levofloxacin/Dextrose 500 mg in 100 mls @ 100 mls/hr 09/02/25 01:00 09/02/25 00:21 Levaquin 500 Mg/D5w 100 Ml IVPB 100 mls/hr Q24H NAZIA Administration Insulin Aspart 2 - 5 units 09/01/25 17:00 09/02/25 09:02 Insulin Aspart (*Bkc) 100 Units/Ml SUB-Q 2 units TIDWM NAZIA Administration Protocol Phenazopyridine HCl 100 mg 09/01/25 13:52 Phenazopyridine Hcl 100 Mg Tablet PO TID PRN urinary discomfort Polyethylene Glycol 119 gm 09/02/25 20:00 Polyethylene Glycol 3350 238 Gm Bottle PO 09/03/25 05:01 BID@0500,2000 [facility] Tamsulosin HCl 0.4 mg 09/01/25 21:00 09/01/25 20:02 Tamsulosin Hcl 0.4 Mg Capsule PO 0.4 mg QHS [facility] Administration Radiology Results: ITS Impressions Abdomen/Pelvis CT 09/01/25 08:39 IMPRESSION: 1. 1.6 cm stone at right ureteropelvic junction with moderate right hydronephrosis. 2. Nonobstructing right kidney stone. Retrograde Pyelogram 09/02/25 08:09 IMPRESSION: 1. Right nephrolithiasis and placement of a right internal ureteral stent. Unclear from the provided images whether the stone remains in place and would correlate with procedure note for further detail. Labs Labs: Laboratory Results - last 24 hr 09/01/25 09/01/25 09/01/25 06:44 12:56 15:37 WBC RBC Hgb 8.9 L Hct 26.5 L MCV MCH MCHC RDW Plt Count MPV Haptoglobin 302 Sodium Potassium Chloride Carbon Dioxide Anion Gap BUN Creatinine Estim Creat Clear Calc Estimated GFR Glucose POC Capillary Glucose 181 H Lactic Acid Calcium 09/01/25 09/01/25 09/01/25 16:48 20:15 21:10 WBC RBC Hgb 8.9 L Hct 26.9 L MCV MCH MCHC RDW Plt Count MPV Haptoglobin Sodium Potassium Chloride Carbon Dioxide Anion Gap BUN Creatinine Estim Creat Clear Calc Estimated GFR Glucose POC Capillary Glucose 191 H 284 H Lactic Acid Calcium 09/02/25 09/02/25 09/02/25 05:13 07:15 11:08 WBC 9.0 RBC 2.96 L Hgb 9.1 L Hct 28.0 L MCV 94.6 MCH 30.7 MCHC 32.5 RDW 13.6 Plt Count 370 MPV 11.1 H Haptoglobin Sodium 132 L Potassium 4.4 Chloride 100 Carbon Dioxide 30 Anion Gap 2 L BUN 12 D Creatinine 0.96 Estim Creat Clear Calc 74 Estimated GFR > 60 Glucose 181 H POC Capillary Glucose 211 H 194 H Lactic Acid 1.0 Calcium 8.4 Quality VTE Prophylaxis VTE prophylaxis: mechanical ordered
[2025-09-02] MEDS: IRON SUCROSE COMPLEX 400 MG, IRON SUCROSE COMPLEX 100 MG in SODIUM CHLORIDE 0.9% IV 250 ML 78.57 MG IVPB (13:42)
[2025-09-02 13:57] VITALS: BP 122/66; PULSE 89; RESP 16; TEMP 35.9; O2SAT 96
--- NOTE | 2025-09-02 19:23 | WPDGIPROGNO ---
Progress Note: A&P Assessment and Plan (1) Anemia: Code(s): D64.9 - Anemia, unspecified Status: Acute Assessment and Plan: As discussed in previous note, the patient has iron deficiency anemia exhibiting significant drop in hematocrit in only 4 days. This anemia is borderline iron deficient and will perform an EGD and colonoscopy tomorrow. Subjective Date/time seen: 09/02/25 19:23 Interval history: No new complaints. Patient underwent urologic intervention yesterday, placing stent in the right kidney to relieve obstruction caused by the large stone. Exam Const: General: comfortable and no acute distress Resp: Auscultation: clear to auscultation bilaterally Cardio: Rate: regular rate Rhythm: regular rhythm GI: GI Palp: Yes Soft to palpation, No Firmness to palpation present (GI), No Tenderness to palpation present (GI) and No Guarding due to palpation present (GI) Auscultation: normal bowel sounds Objective Data Vital Signs Vital Signs: Vital Signs - 24 hr 09/01/25 20:00 09/01/25 21:47 09/02/25 05:46 Temperature 97.0 F L 97.4 F L Pulse Rate 118 H 82 Respiratory Rate 19 16 Blood Pressure 127/80 129/72 Pulse Oximetry 99 99 Oxygen Delivery Room Air 09/02/25 13:57 Temperature 96.6 F L Pulse Rate 89 Respiratory Rate 16 Blood Pressure 122/66 Pulse Oximetry 96 Oxygen Delivery Intake/Output Intake/Output: Intake & Output 08/30/25 08/31/25 09/01/25 09/02/25 23:59 23:59 23:59 23:59 Intake Total 1297 2485 Output Total 425 2775 Balance 872 -290 Meds/Results Medications: Active Medications Generic Name Dose Route Start Last Admin Trade Name Freq PRN Reason Stop Dose Admin Albuterol 2 puff 09/01/25 06:32 Albuterol Sulfate (*Sp) Aerosol 1 Puff INHALATION Q4H PRN Shortness Of Breath Or Wheezing Dextrose 12.5 gm 09/01/25 06:35 Dextrose 50% 25 Gm/50 Ml Syringe IV PUSH PRN PRN Hypoglycemia Protocol Glucagon 1 mg 09/01/25 06:35 Glucagon For Inj 1 Mg Vial IM PRN PRN Hypoglycemia Protocol Glucose 15 gm 09/01/25 06:35 Glucose Oral Gel 15 Gm Of Glucse In 37.5 Gm Tube PO PRN PRN Hypoglycemia Protocol Hydralazine HCl 10 mg 09/01/25 06:45 Hydralazine Hcl 20 Mg/Ml Vial IV PUSH Q8H PRN Blood Pressure - High Hydromorphone HCl 0.5 mg 09/01/25 06:31 09/01/25 09:32 Hydromorphone Hcl Inj (*Crx) 1 Mg/Ml Syr IV PUSH 0.5 mg Q3H PRN Administration Pain Rated 7-10 Lactated Ringer's 1,000 mls @ 75 mls/hr 09/01/25 06:35 09/02/25 09:33 Lr - Lactated Ringers Iv IV CONT 75 mls/hr .[id number] NAZIA Administration Dextrose 1,000 mls @ 100 mls/hr 09/01/25 06:35 Dextrose 5% 1,000 Ml IVPB PRN PRN Hypoglycemia Protocol Levofloxacin/Dextrose 500 mg in 100 mls @ 100 mls/hr 09/02/25 01:00 09/02/25 00:21 Levaquin 500 Mg/D5w 100 Ml IVPB 100 mls/hr Q24H NAZIA Administration Insulin Aspart 2 - 5 units 09/01/25 17:00 09/02/25 17:36 Insulin Aspart (*Bkc) 100 Units/Ml SUB-Q 2 units TIDWM NAZIA Administration Protocol Phenazopyridine HCl 100 mg 09/01/25 13:52 Phenazopyridine Hcl 100 Mg Tablet PO TID PRN urinary discomfort Polyethylene Glycol 119 gm 09/02/25 20:00 Polyethylene Glycol 3350 238 Gm Bottle PO 09/03/25 05:01 BID@0500,2000 NAZIA Tamsulosin HCl 0.4 mg 09/01/25 21:00 09/01/25 20:02 Tamsulosin Hcl 0.4 Mg Capsule PO 0.4 mg QHS NAZIA Administration Radiology Results: ITS Impressions Abdomen/Pelvis CT 09/01/25 08:39 IMPRESSION: 1. 1.6 cm stone at right ureteropelvic junction with moderate right hydronephrosis. 2. Nonobstructing right kidney stone. Retrograde Pyelogram 09/02/25 08:09 IMPRESSION: 1. Right nephrolithiasis and placement of a right internal ureteral stent. Unclear from the provided images whether the stone remains in place and would correlate with procedure note for further detail. Labs Labs: Laboratory Results - last 24 hr 09/01/25 09/01/25 09/01/25 06:44 20:15 21:10 WBC RBC Hgb 8.9 L Hct 26.9 L MCV MCH MCHC RDW Plt Count MPV Haptoglobin 302 Sodium Potassium Chloride Carbon Dioxide Anion Gap BUN Creatinine Estim Creat Clear Calc Estimated GFR Glucose POC Capillary Glucose 284 H Lactic Acid Calcium 09/02/25 09/02/25 09/02/25 05:13 07:15 11:08 WBC 9.0 RBC 2.96 L Hgb 9.1 L Hct 28.0 L MCV 94.6 MCH 30.7 MCHC 32.5 RDW 13.6 Plt Count 370 MPV 11.1 H Haptoglobin Sodium 132 L Potassium 4.4 Chloride 100 Carbon Dioxide 30 Anion Gap 2 L BUN 12 D Creatinine 0.96 Estim Creat Clear Calc 74 Estimated GFR > 60 Glucose 181 H POC Capillary Glucose 211 H 194 H Lactic Acid 1.0 Calcium 8.4 09/02/25 16:21 WBC RBC Hgb Hct MCV MCH MCHC RDW Plt Count MPV Haptoglobin Sodium Potassium Chloride Carbon Dioxide Anion Gap BUN Creatinine Estim Creat Clear Calc Estimated GFR Glucose POC Capillary Glucose 232 H Lactic Acid Calcium
[2025-09-02 20:00] VITALS: O2SAT 100
[2025-09-02] MEDS: TAMSULOSIN HCL 0.4 MG CAPSULE PO (20:36)
[2025-09-03] VITALS (8 sets, daily range): BP systolic 108–150; BP diastolic 66–88; PULSE 70–94; RESP 18–22; TEMP 35.6–36.9; O2SAT 96–100
--- NOTE | 2025-09-03 00:04 | PC.NURSE ---
Global Marketing Manager notified of patients elevated blood sugar. New order for two units of Novolog given at this time.
[2025-09-03] MEDS: levoFLOXacin 500 MG/D5W 100 ML 500 MG/100 ML BAG 100 MG IVPB (01:26)
[2025-09-03] MEDS: LACTATED RINGERS 1,000 ML 75 ML IV CONT ×2 (02:46→18:45)
[2025-09-03 06:05] LABS: Hematocrit 27.3 % (42.0-52.0); Hemoglobin 8.6 g/dL (14.0-18.0); Immature Granulocyte Percent A 2.1 % (0-0.5); Lymphocytes Absolute Auto 1.09 K/mm3 (0.9-3.2); Mean Corpuscular HGB Conc 31.5 g/dl (32-36); Mean Corpuscular Hemoglobin 30.4 pg (26-34); Mean Corpuscular Volume 96.5 fl (80-100); Nucleated Red Blood Cells Absolute Auto 0.000 K/mm3 (0.0-0.012); Nucleated Red Blood Cells Perc 0.0 % (0.0-0.2); Platelet Count Result 409 k/mm3 (150-375); Red Blood Count 2.83 M/mm3 (4.6-6.20); White Blood Count 10.0 K/mm3 (4.5-10.0)
[2025-09-03 06:41] LABS: Alanine Aminotransferase 44 U/L (6-50); Albumin Level 2.9 g/dL (3.5-5.1); Alkaline Phosphatase 95 U/L (38-126); Anion Gap 4 mmol/L (4-12); Aspartate Amino Transferase 54 U/L (17-59); Bilirubin,Total 0.4 mg/dL (0.2-1.3); Blood Urea Nitrogen 8 mg/dL (9-20); Calcium 8.5 mg/dL (8.4-10.2); Carbon Dioxide 28 mmol/L (22-30); Chloride 99 mmol/L (98-107); Estimated CRCL calculation 87 ml/min; Estimated Glomerular Filt Rate > 60; Glucose 262 mg/dL (65-110); Magnesium 1.7 mg/dL (1.6-2.3); Potassium 3.8 mmol/L (3.4-5.0); Sodium 131 mmol/L (137-145); Total Protein 6.7 g/dL (6.3-8.2)
[2025-09-03] MEDS: MAGNESIUM CITRATE 300 ML BTL 150 ML PO (08:14)
--- NOTE | 2025-09-03 09:05 | P.PNUR_ITS ---
Progress Note: A&P Assessment and Plan (1) Right ureteral calculus: Code(s): N20.1 - Calculus of ureter Status: Acute Assessment and Plan: - S/p Right ureteral stent placement 09/01/2025 for 1.6 cm Right UVJ stone; with non-obstructing Right renal stone as well - To be organized for Right URS on outpatient basis (2) Abnormal urinalysis: Code(s): R82.90 - Unspecified abnormal findings in urine Status: Acute Assessment and Plan: - UA with leuks, blood which may reflect UTI vs reactive changes from obstructing stone. UCx pending. - Once UCx results treat based on susceptibilities as indicated. (3) Ureteral stent present: Code(s): Z96.0 - Presence of urogenital implants Status: Acute Assessment and Plan: - Currently with minimal bother from ureteral stent, however, largely stationary with bedside urinal in hospital setting - Will send pt home on short course of tamsulosin, solifenacin and Pyridium to be used PRN for stent symptoms. Appropriate use of each medicaiton and side effect profiles reviewed with pt today. Plan - Once pt UCx results and on culture driven Abx OK for discharge from Urology perspective - Will follow peripherally until this time; please call with further questions Subjective Subjective Date/Time Seen: 09/03/25 09:05 Interval history: NAEO; resting comfortably in bed. Voiding without complaints. Pt with drop in Hgb being worked up by GI; no gross hematuria. Exam Narrative: General: Alert, no acute distress Head: Normocephalic, atraumatic Eyes: Extraocular movements intact Neck: No JVD, trachea midline Respiratory: Symmetric chest rise, nonlabored breathing on room air CV: Normal rate, adequate peripheral perfusion Abdomen: Soft, nontender, nondistended : Right CVAT Skin: Warm/dry Extremities: No peripheral edema, no cyanosis Neuro: No focal deficits Psych: Answers questions appropriately, appropriate mood Objective Data Vital Signs Vital Signs: Vital Signs - 24 hr 09/02/25 13:57 09/02/25 20:00 09/03/25 00:10 Temperature 35.9 C L 36.8 C Pulse Rate 89 94 Respiratory Rate 16 20 Blood Pressure 122/66 140/83 Pulse Oximetry 96 100 100 Oxygen Delivery Room Air 09/03/25 05:54 Temperature 36.9 C Pulse Rate 85 Respiratory Rate 18 Blood Pressure 120/66 Pulse Oximetry 96 Oxygen Delivery Intake/Output Intake/Output: Intake & Output 08/31/25 09/01/25 09/02/25 09/03/25 23:59 23:59 23:59 23:59 Intake Total 1297 3585 100 Output Total 425 2775 Balance 872 810 100 Meds/Results Medications: Active Medications Generic Name Dose Route Start Last Admin Trade Name Freq PRN Reason Stop Dose Admin Albuterol 2 puff 09/01/25 06:32 Albuterol Sulfate (*Sp) Aerosol 1 Puff INHALATION Q4H PRN Shortness Of Breath Or Wheezing Dextrose 12.5 gm 09/01/25 06:35 Dextrose 50% 25 Gm/50 Ml Syringe IV PUSH PRN PRN Hypoglycemia Protocol Glucagon 1 mg 09/01/25 06:35 Glucagon For Inj 1 Mg Vial IM PRN PRN Hypoglycemia Protocol Glucose 15 gm 09/01/25 06:35 Glucose Oral Gel 15 Gm Of Glucse In 37.5 Gm Tube PO PRN PRN Hypoglycemia Protocol Hydralazine HCl 10 mg 09/01/25 06:45 Hydralazine Hcl 20 Mg/Ml Vial IV PUSH Q8H PRN Blood Pressure - High Hydromorphone HCl 0.5 mg 09/01/25 06:31 09/01/25 09:32 Hydromorphone Hcl Inj (*Crx) 1 Mg/Ml Syr IV PUSH 0.5 mg Q3H PRN Administration Pain Rated 7-10 Lactated Ringer's 1,000 mls @ 75 mls/hr 09/01/25 06:35 09/03/25 02:46 Lr - Lactated Ringers Iv IV CONT 75 mls/hr .[id number] NAZIA Administration Dextrose 1,000 mls @ 100 mls/hr 09/01/25 06:35 Dextrose 5% 1,000 Ml IVPB PRN PRN Hypoglycemia Protocol Levofloxacin/Dextrose 500 mg in 100 mls @ 100 mls/hr 09/02/25 01:00 09/03/25 02:26 Levaquin 500 Mg/D5w 100 Ml IVPB Infused Q24H NAZIA Infusion Lactated Ringer's 1,000 mls @ 150 mls/hr 09/03/25 07:20 Lr - Lactated Ringers Iv IV CONT .Q6H40M [facility] Insulin Aspart 2 - 5 units 09/01/25 17:00 09/03/25 07:36 Insulin Aspart (*Bkc) 100 Units/Ml SUB-Q Not Given TIDWM [facility] Protocol Phenazopyridine HCl 100 mg 09/01/25 13:52 Phenazopyridine Hcl 100 Mg Tablet PO TID PRN urinary discomfort Tamsulosin HCl 0.4 mg 09/01/25 21:00 09/02/25 20:36 Tamsulosin Hcl 0.4 Mg Capsule PO 0.4 mg QHS NAZIA Administration Radiology Results: ITS Impressions Abdomen/Pelvis CT 09/01/25 08:39 IMPRESSION: 1. 1.6 cm stone at right ureteropelvic junction with moderate right hydronephrosis. 2. Nonobstructing right kidney stone. Retrograde Pyelogram 09/02/25 08:09 IMPRESSION: 1. Right nephrolithiasis and placement of a right internal ureteral stent. Unclear from the provided images whether the stone remains in place and would correlate with procedure note for further detail. Labs Labs: Laboratory Results - last 24 hr 09/01/25 09/02/25 09/02/25 06:44 11:08 16:21 WBC RBC Hgb Hct MCV MCH MCHC RDW Plt Count MPV Immature Gran % (Auto) Neut % (Auto) Lymph % (Auto) Davidson % (Auto) Eos % (Auto) Baso % (Auto) Lymph # (Auto) Davidson # (Auto) Eos # (Auto) Baso # (Auto) Abs Immat Gran (auto) Absolute Neuts (auto) Absolute Nucleated RBC Nucleated RBC % Haptoglobin 302 Sodium Potassium Chloride Carbon Dioxide Anion Gap BUN Creatinine Estim Creat Clear Calc Estimated GFR Glucose POC Capillary Glucose 194 H 232 H Calcium Magnesium Lucía Transferrin Receptr 9.7 L Total Bilirubin AST ALT Alkaline Phosphatase Total Protein Albumin 09/02/25 09/03/25 09/03/25 22:21 00:42 05:23 WBC 10.0 RBC 2.83 L Hgb 8.6 L Hct 27.3 L MCV 96.5 MCH 30.4 MCHC 31.5 L RDW 13.5 Plt Count 409 H MPV 10.8 H Immature Gran % (Auto) 2.1 H Neut % (Auto) 77.7 H Lymph % (Auto) 11.0 L Davidson % (Auto) 7.8 Eos % (Auto) 1.0 Baso % (Auto) 0.4 Lymph # (Auto) 1.09 Davidson # (Auto) 0.8 H Eos # (Auto) 0.1 Baso # (Auto) 0.0 Abs Immat Gran (auto) 0.21 H Absolute Neuts (auto) 7.7 H Absolute Nucleated RBC 0.000 Nucleated RBC % 0.0 Haptoglobin Sodium 131 L Potassium 3.8 Chloride 99 Carbon Dioxide 28 Anion Gap 4 BUN 8 L Creatinine 0.81 Estim Creat Clear Calc 87 Estimated GFR > 60 Glucose 262 H POC Capillary Glucose 320 H 184 H Calcium 8.5 Magnesium 1.7 Lucía Transferrin Receptr Total Bilirubin 0.4 AST 54 ALT 44 Alkaline Phosphatase 95 Total Protein 6.7 Albumin 2.9 L 09/03/25 07:20 WBC RBC Hgb Hct MCV MCH MCHC RDW Plt Count MPV Immature Gran % (Auto) Neut % (Auto) Lymph % (Auto) Davidson % (Auto) Eos % (Auto) Baso % (Auto) Lymph # (Auto) Davidson # (Auto) Eos # (Auto) Baso # (Auto) Abs Immat Gran (auto) Absolute Neuts (auto) Absolute Nucleated RBC Nucleated RBC % Haptoglobin Sodium Potassium Chloride Carbon Dioxide Anion Gap BUN Creatinine Estim Creat Clear Calc Estimated GFR Glucose POC Capillary Glucose 186 H Calcium Magnesium Lucía Transferrin Receptr Total Bilirubin AST ALT Alkaline Phosphatase Total Protein Albumin
--- NOTE | 2025-09-03 13:26 | PC.NURSE ---
To GI Lab per [ ], IV [ ]. Report given to [MIGUEL].
[2025-09-03] MEDS: LACTATED RINGERS 1,000 ML 150 ML IV CONT (13:53)
[2025-09-03] MEDS: SIMETHICONE ORAL SUSPENSION 20 MG/0.3 ML 30 ML BOTTLE 1.8 ML PO (13:58)
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
--- NOTE | 2025-09-03 14:50 | S_PTH ---
PATIENT: Francisco Leroy LOC: [id number] U#:[id number] AGE/SX: 64/M ROOM: 329 RE09/01/[address]: Melvin Rodriguez MD : [id number] BED: 01 DIS: 09/04/2025 SPEC #: [id number] RECD: 09/04/25 07:43 STATUS: KYE PISANO #: [id number] ESCOBAR: 09/03/25 14:[address]: Andre Sanchez DEPT: [facility] Surgical RECD BY: Jolanta Morales ENTERED: 09/04/25 07:43 SP TYPE: Surgical OTHR DR: MD Racheal Thornton MD Robert A. Petrossian, MD Tissues: A - Gastric Biopsy B - Gastric Biopsy Procedures: Hematoxylin and Eosin Stain Gross and Microscopic Level 4
--- NOTE | 2025-09-03 14:55 | SUR.OPER ---
EGD ended at 1438. Colonoscopy started at 1447.
--- NOTE | 2025-09-03 15:21 | PC.NURSE ---
Returned from GI Lab. Report received from [ ETIENNE].
[2025-09-03 16:01] LABS: HPYLORIRESULT Negative (Negative)
--- NOTE | 2025-09-03 16:05 | P.PNGI_ITS ---
Progress Note: A&P Assessment and Plan (1) Peptic ulcer of duodenum: Code(s): K26.3 - Acute duodenal ulcer without hemorrhage or perforation Status: Acute Assessment and Plan: EGD demonstrated deep, non-bleeding duodenal ulcers with no stigmata of recent hemorrhage highly suspected to be NSAID-induced given the patient's admitted intermittent ibuprofen use for nephrolithiasis. The patient is currently con tinuing Pantoprazole 40 mg orally twice daily for a full 8-week course. H. pylori testing remains pending; the patient will be notified and prescribed an eradication regimen if results are positive. Patient was strongly counseled on permanent and strict avoidance of all NSAIDs, using only Acetaminophen for future pain management, and may otherwise tolerate a regular diet. The remainder of the care plan is coordinated with the Urology team, and a follow-up appointment can be scheduled in the GI Clinic post-discharge. Subjective Date/time seen: 09/03/25 16:05 Interval history: The patient remained hemodynamically stable, with no further melena or drop in hematocrit. See EGD report. Large duodenal ulcers explaining acute bleeding and even iron deficiency anemia. Colonoscopy was essentially unremarkable. Exam Const: General: comfortable GI: GI Palp: Yes Soft to palpation, No Tenderness to palpation present (GI) and No Guarding due to palpation present (GI) Objective Data Vital Signs Vital Signs: Vital Signs - 24 hr 09/02/25 20:00 09/03/25 00:10 09/03/25 05:54 Temperature 98.2 F 98.4 F Pulse Rate 94 85 Respiratory Rate 20 18 Blood Pressure 140/83 120/66 Pulse Oximetry 100 100 96 Oxygen Delivery Room Air Oxygen Flow Rate 09/03/25 13:45 09/03/25 15:01 09/03/25 15:11 Temperature 97.4 F L Pulse Rate 77 73 70 Respiratory Rate 18 18 18 Blood Pressure 140/88 109/77 108/76 Pulse Oximetry 99 100 100 Oxygen Delivery Room Air Nasal Cannula Nasal Cannula Oxygen Flow Rate 6 6 09/03/25 15:21 09/03/25 15:43 Temperature 96.0 F L Pulse Rate 73 79 Respiratory Rate 22 H Blood Pressure 127/75 150/85 H Pulse Oximetry 100 100 Oxygen Delivery Room Air Oxygen Flow Rate Intake/Output Intake/Output: Intake & Output 08/31/25 09/01/25 09/02/25 09/03/25 23:59 23:59 23:59 23:59 Intake Total 1297 3585 300 Output Total 425 2775 Balance 872 810 300 Meds/Results Medications: Active Medications Generic Name Dose Route Start Last Admin Trade Name Freq PRN Reason Stop Dose Admin Albuterol 2 puff 09/01/25 06:32 Albuterol Sulfate (*Sp) Aerosol 1 Puff INHALATION Q4H PRN Shortness Of Breath Or Wheezing Dextrose 12.5 gm 09/01/25 06:35 Dextrose 50% 25 Gm/50 Ml Syringe IV PUSH PRN PRN Hypoglycemia Protocol Glucagon 1 mg 09/01/25 06:35 Glucagon For Inj 1 Mg Vial IM PRN PRN Hypoglycemia Protocol Glucose 15 gm 09/01/25 06:35 Glucose Oral Gel 15 Gm Of Glucse In 37.5 Gm Tube PO PRN PRN Hypoglycemia Protocol Hydralazine HCl 10 mg 09/01/25 06:45 Hydralazine Hcl 20 Mg/Ml Vial IV PUSH Q8H PRN Blood Pressure - High Hydromorphone HCl 0.5 mg 09/01/25 06:31 09/01/25 09:32 Hydromorphone Hcl Inj (*Crx) 1 Mg/Ml Syr IV PUSH 0.5 mg Q3H PRN Administration Pain Rated 7-10 Lactated Ringer's 1,000 mls @ 75 mls/hr 09/01/25 06:35 09/03/25 02:46 Lr - Lactated Ringers Iv IV CONT 75 mls/hr .[id number] NAZIA Administration Dextrose 1,000 mls @ 100 mls/hr 09/01/25 06:35 Dextrose 5% 1,000 Ml IVPB PRN PRN Hypoglycemia Protocol Levofloxacin/Dextrose 500 mg in 100 mls @ 100 mls/hr 09/02/25 01:00 09/03/25 02:26 Levaquin 500 Mg/D5w 100 Ml IVPB Infused Q24H NAZIA Infusion Iron Sucrose 200 mg/ Sodium 110 mls @ 220 mls/hr 09/03/25 16:00 Chloride IVPB 09/03/25 16:29 ONCE ONE Insulin Aspart 2 - 5 units 09/01/25 17:00 09/03/25 11:29 Insulin Aspart (*Bkc) 100 Units/Ml SUB-Q Not Given TIDWM NAZIA Protocol Pantoprazole Sodium 40 mg 09/03/25 21:00 Pantoprazole 40 Mg Tablet PO Q12HR NAZIA Phenazopyridine HCl 100 mg 09/01/25 13:52 Phenazopyridine Hcl 100 Mg Tablet PO TID PRN urinary discomfort Tamsulosin HCl 0.4 mg 09/01/25 21:00 09/02/25 20:36 Tamsulosin Hcl 0.4 Mg Capsule PO 0.4 mg QHS NAZIA Administration Radiology Results: ITS Impressions Abdomen/Pelvis CT 09/01/25 08:39 IMPRESSION: 1. 1.6 cm stone at right ureteropelvic junction with moderate right hydro nephrosis. 2. Nonobstructing right kidney stone. Retrograde Pyelogram 09/02/25 08:09 IMPRESSION: 1. Right nephrolithiasis and placement of a right internal ureteral stent. Unclear from the provided images whether the stone remains in place and would correlate with procedure note for further detail. Labs Labs: Laboratory Results - last 24 hr 09/01/25 09/02/25 09/02/25 06:44 16:21 22:21 WBC RBC Hgb Hct MCV MCH MCHC RDW Plt Count MPV Immature Gran % (Auto) Neut % (Auto) Lymph % (Auto) Travis % (Auto) Eos % (Auto) Baso % (Auto) Lymph # (Auto) Travis # (Auto) Eos # (Auto) Baso # (Auto) Abs Immat Gran (auto) Absolute Neuts (auto) Absolute Nucleated RBC Nucleated RBC % Sodium Potassium Chloride Carbon Dioxide Anion Gap BUN Creatinine Estim Creat Clear Calc Estimated GFR Glucose POC Capillary Glucose 232 H 320 H Calcium Magnesium Lucía Transferrin Receptr 9.7 L Total Bilirubin AST ALT Alkaline Phosphatase Total Protein Albumin POC H. pylori Urease 09/03/25 09/03/25 09/03/25 00:42 05:23 07:20 WBC 10.0 RBC 2.83 L Hgb 8.6 L Hct 27.3 L MCV 96.5 MCH 30.4 MCHC 31.5 L RDW 13.5 Plt Count 409 H MPV 10.8 H Immature Gran % (Auto) 2.1 H Neut % (Auto) 77.7 H Lymph % (Auto) 11.0 L Travis % (Auto) 7.8 Eos % (Auto) 1.0 Baso % (Auto) 0.4 Lymph # (Auto) 1.09 Travis # (Auto) 0.8 H Eos # (Auto) 0.1 Baso # (Auto) 0.0 Abs Immat Gran (auto) 0.21 H Absolute Neuts (auto) 7.7 H Absolute Nucleated RBC 0.000 Nucleated RBC % 0.0 Sodium 131 L Potassium 3.8 Chloride 99 Carbon Dioxide 28 Anion Gap 4 BUN 8 L Creatinine 0.81 Estim Creat Clear Calc 87 Estimated GFR > 60 Glucose 262 H POC Capillary Glucose 184 H 186 H Calcium 8.5 Magnesium 1.7 Lucía Transferrin Receptr Total Bilirubin 0.4 AST 54 ALT 44 Alkaline Phosphatase 95 Total Protein 6.7 Albumin 2.9 L POC H. pylori Urease 09/03/25 09/03/25 09/03/25 11:20 13:52 15:40 WBC RBC Hgb Hct MCV MCH MCHC RDW Plt Count MPV Immature Gran % (Auto) Neut % (Auto) Lymph % (Auto) Travis % (Auto) Eos % (Auto) Baso % (Auto) Lymph # (Auto) Travis # (Auto) Eos # (Auto) Baso # (Auto) Abs Immat Gran (auto) Absolute Neuts (auto) Absolute Nucleated RBC Nucleated RBC % Sodium Potassium Chloride Carbon Dioxide Anion Gap BUN Creatinine Estim Creat Clear Calc Estimated GFR Glucose POC Capillary Glucose 183 H 183 H Calcium Magnesium Lucía Transferrin Receptr Total Bilirubin AST ALT Alkaline Phosphatase Total Protein Albumin POC H. pylori Urease Negative
[2025-09-03] MEDS: IRON SUCROSE COMPLEX 200 MG in SODIUM CHLORIDE 0.9% IV 100 ML 220 MG IVPB (16:39)
--- NOTE | 2025-09-03 18:13 | P.PNIM_ITS ---
Assessment and Plan Assessment and Plan (1) Sepsis: Code(s): A41.9 - Sepsis, unspecified organism Status: Acute Assessment and Plan: Sepsis resolved the patient was treated outpatient for pyelonephritis. Blood and urine cultures were negative earlier this month. Fever and tachycardia resolved -blood and urine cultures pending. -continue Levaquin monitor (2) Ureterolithiasis: Code(s): N20.1 - Calculus of ureter Status: Acute Assessment and Plan: -please see official CT read per radiologist. Right obstructive renal stone. -s/p Cystoscopy with -continue with IV fluids -follow up urine and blood cultures continue levaquin continue above care (3) Anemia: Code(s): D64.9 - Anemia, unspecified Status: Acute Assessment and Plan: Patient noted melena stools the last couple of days FOBT positive in the ER, Hb 9.3 and isat 14 Started on IV iron 500/1000 S/P Endoscopy and Colonoscopy Continue PPI and GI following (4) HTN (hypertension): Qualifiers: Hypertension type: essential hypertension Qualified Code(s): I10 - Essential (primary) hypertension Code(s): I10 - Essential (primary) hypertension Status: Acute Assessment and Plan: -the patient is NPO and his lisinopril was placed on hold. -p.r.n. hydralazine has been ordered. -current blood pressure is 141/76. (5) HLD (hyperlipidemia): Code(s): E78.5 - Hyperlipidemia, unspecified Status: Acute Assessment and Plan: -the patient is NPO at this time in his rosuvastatin is on hold. (6) Diabetes mellitus: Qualifiers: Diabetes mellitus type: type 2 Diabetes mellitus skilled nursing insulin use: without skilled nursing use Diabetes mellitus complication status: without complication Qualified Code(s): E11.9 - Type 2 diabetes mellitus without complications Code(s): E11.9 - Type 2 diabetes mellitus without complications Status: Acute Assessment and Plan: -Accu-Cheks q.6 hours with hypoglycemic protocol and sliding scale insulin. -check A1c if not performed in the last 3 months. Plan GI bleed Patient reported melena stool prior to presentation FOBT positive and Iron deficiency anemia Contineu PPI and S/P Endoscopy and Colonoscopy GI following DVT prophylaxis on SCDs and Lovenox on hodl pending GI bleed rule out Subjective Date/time seen: 09/03/25 18:13 Interval history: Patient underwent EGD and colonoscopy due to anemia. Pending official report Review of Systems Constitutional: Constitutional: Reports as per HPI and Reports no additional constitutional complaints Eyes: Eyes: Reports as per HPI and Reports no additional eye complaints ENT: Reports system reviewed and no additional complaints, except as documented and Reports Normal hearing present Cardiovascular: Cardiovascular: Reports no additional cardiovascular complaints Respiratory: Respiratory: Reports as per HPI and Reports no additional respiratory complaints Gastrointestinal: Gastrointestinal: Reports as per HPI and Reports no additional gastrointestinal complaints Musculoskeletal: Musculoskeletal: Reports no additional musculoskeletal complaints Integumentary/Breasts: Skin/Breast: Reports system reviewed and no additional complaints, except as docu Neurologic: Reports system reviewed and no additional complaints, except as documented and Reports Normal hearing present Psychiatric: Psychiatric: Reports no additional psychiatric complaints and Reports as per HPI Hematologic/Lymphatic: Hematologic/Lymphatic: Reports no additional hematologic/lymphatic complaints Allergic/Immunologic: Allergic/Immunologic: Reports no additional allergic/immunologic complaints Exam Const: General: cooperative, healthy appearing, comfortable, no acute distress, well developed, awake, Physically active, average body habitus and well nourished Nutritional Appearance: average body habitus and well nourished Orientation/consciousness: oriented to person, oriented to place, oriented to time and patient oriented x3 Limitations: no limitations HENMT: Head: normal to inspection, No palpable skull fracture present, normocephalic, atraumatic and abrasion Eyes: General: appearance normal, both eyes and all related structures Alignment and Position: alignment normal Periorbital: periorbital findings normal Eyelids: eyelids normal EOM: EOMs intact bilaterally Neck: Neck: normal visual inspection, full ROM and no lymphadenopathy Chest: Chest palpation & inspection: normal inspection of the chest Resp: Effort & Inspection: normal respiratory effort Auscultation: clear to auscultation bilaterally Cardio: Palpation: normal PMI Rate: tachycardic Rhythm: regular rhythm Heart sounds: S1 normal heart sound present and S2 normal heart sound present Peripheral pulses: Peripheral pulses 2+ throughout GI: Inspection: normal to inspection Auscultation: normal bowel sounds O ther: Mild Right-sided cva tender Skin: General skin exam: normal color Lesions: no lesions Rashes: no rashes Trauma: no lacerations or abrasions Wounds: no wounds Nails: normal Other: Normal aging male pattern balding Neuro: General: oriented to person, oriented to place, oriented to time and patient oriented x3 Cranial nerves: Yes Normal hearing present Cognition (Neuro): normal cognition Speech: normal speech Gait exam (Neuro): Normal gait present Motor exam (neuro): 5/5 motor strength present throughout Sensory Exam: normal sensation Extrem: General: normal to inspection Right upper extremity: normal to insp ection and shoulder/upper arm Left upper extremity: normal to inspection and shoulder/upper arm Right lower extremity: normal to inspection Left lower extremity: normal to inspection Psych: Appearance: grossly normal Mental Status: mental status grossly normal Speech and movement: Normal speech and movement present Affect: normal affect Attitude: cooperative Thought process: Normal thought process present Insight: Good insight present (Psych) Judgement: Good judgement present (Psych) Objective Data Vital Signs Vital Signs: Vital Signs - 24 hr 09/02/25 20:00 09/03/25 00:10 09/03/25 05:54 Temperature 98.2 F 98.4 F Pulse Rate 94 85 Respiratory Rate 20 18 Blood Pressure 140/83 120/66 Pulse Oximetry 100 100 96 Oxygen Delivery Room Air Oxygen Flow Rate 09/03/25 13:45 09/03/25 15:01 09/03/25 15:11 Temperature 97.4 F L Pulse Rate 77 73 70 Respiratory Rate 18 18 18 Blood Pressure 140/88 109/77 108/76 Pulse Oximetry 99 100 100 Oxygen Delivery Room Air Nasal Cannula Nasal Cannula Oxygen Flow Rate 6 6 09/03/25 15:21 09/03/25 15:43 Temperature 96.0 F L Pulse Rate 73 79 Respiratory Rate 22 H Blood Pressure 127/75 150/85 H Pulse Oximetry 100 100 Oxygen Delivery Room Air Oxygen Flow Rate Intake/Output Intake/Output: Intake & Output 08/31/25 09/01/25 09/02/25 09/03/25 23:59 23:59 23:59 23:59 Intake Total 1297 3585 650 Output Total 425 2775 Balance 872 810 650 Meds/Results Medications: Active Medications Generic Name Dose Route Start Last Admin Trade Name Freq PRN Reason Stop Dose Admin Albuterol 2 puff 09/01/25 06:32 Albuterol Sulfate (*Sp) Aerosol 1 Puff INHALATION Q4H PRN Shortness Of Breath Or Wheezing Dextrose 12.5 gm 09/01/25 06:35 Dextrose 50% 25 Gm/50 Ml Syringe IV PUSH PRN PRN Hypoglycemia Protocol Glucagon 1 mg 09/01/25 06:35 Glucagon For Inj 1 Mg Vial IM PRN PRN Hypoglycemia Protocol Glucose 15 gm 09/01/25 06:35 Glucose Oral Gel 15 Gm Of Glucse In 37.5 Gm Tube PO PRN PRN Hypoglycemia Protocol Hydralazine HCl 10 mg 09/01/25 06:45 Hydralazine Hcl 20 Mg/Ml Vial IV PUSH Q8H PRN Blood Pressure - High Hydromorphone HCl 0.5 mg 09/01/25 06:31 09/01/25 09:32 Hydromorphone Hcl Inj (*Crx) 1 Mg/Ml Syr IV PUSH 0.5 mg Q3H PRN Administration Pain Rated 7-10 Lactated Ringer's 1,000 mls @ 75 mls/hr 09/01/25 06:35 09/03/25 02:46 Lr - Lactated Ringers Iv IV CONT 75 mls/hr .[id number] NAZIA Administration Dextrose 1,000 mls @ 100 mls/hr 09/01/25 06:35 Dextrose 5% 1,000 Ml IVPB PRN PRN Hypoglycemia Protocol Levofloxacin/Dextrose 500 mg in 100 mls @ 100 mls/hr 09/02/25 01:00 09/03/25 02:26 Levaquin 500 Mg/D5w 100 Ml IVPB Infused Q24H NAZIA Infusion Insulin Aspart 2 - 5 units 09/01/25 17:00 09/03/25 16:32 Insulin Aspart (*Bkc) 100 Units/Ml SUB-Q Not Given TIDWM [facility] Protocol Pantoprazole Sodium 40 mg 09/03/25 21:00 Pantoprazole 40 Mg Tablet PO Q12HR NAZIA Phenazopyridine HCl 100 mg 09/01/25 13:52 Phenazopyridine Hcl 100 Mg Tablet PO TID PRN urinary discomfort Tamsulosin HCl 0.4 mg 09/01/25 21:00 09/02/25 20:36 Tamsulosin Hcl 0.4 Mg Capsule PO 0.4 mg QHS NAZIA Administration Radiology Results: ITS Impressions Abdomen/Pelvis CT 09/01/25 08:39 IMPRESSION: 1. 1.6 cm stone at right ureteropelvic junction with moderate right hydronephrosis. 2. Nonobstructing right kidney stone. Retrograde Pyelogram 09/02/25 08:09 IMPRESSION: 1. Right nephrolithiasis and placement of a right internal ureteral stent. Unclear from the provided images whether the stone remains in place and would correlate with procedure note for further detail. Labs Labs: Laboratory Results - last 24 hr 09/01/25 09/02/25 09/03/25 06:44 22:21 00:42 WBC RBC Hgb Hct MCV MCH MCHC RDW Plt Count MPV Immature Gran % (Auto) Neut % (Auto) Lymph % (Auto) [place] % (Auto) Eos % (Auto) Baso % (Auto) Lymph # (Auto) [place] # (Auto) Eos # (Auto) Baso # (Auto) Abs Immat Gran (auto) Absolute Neuts (auto) Absolute Nucleated RBC Nucleated RBC % Sodium Potassium Chloride Carbon Dioxide Anion Gap BUN Creatinine Estim Creat Clear Calc Estimated GFR Glucose POC Capillary Glucose 320 H 184 H Calcium Magnesium Lucía Transferrin Receptr 9.7 L Total Bilirubin AST ALT Alkaline Phosphatase Total Protein Albumin POC H. pylori Urease 09/03/25 09/03/25 09/03/25 05:23 07:20 11:20 WBC 10.0 RBC 2.83 L Hgb 8.6 L Hct 27.3 L MCV 96.5 MCH 30.4 MCHC 31.5 L RDW 13.5 Plt Count 409 H MPV 10.8 H Immature Gran % (Auto) 2.1 H Neut % (Auto) 77.7 H Lymph % (Auto) 11.0 L [place] % (Auto) 7.8 Eos % (Auto) 1.0 Baso % (Auto) 0.4 Lymph # (Auto) 1.09 [place] # (Auto) 0.8 H Eos # (Auto) 0.1 Baso # (Auto) 0.0 Abs Immat Gran (auto) 0.21 H Absolute Neuts (auto) 7.7 H Absolute Nucleated RBC 0.000 Nucleated RBC % 0.0 Sodium 131 L Potassium 3.8 Chloride 99 Carbon Dioxide 28 Anion Gap 4 BUN 8 L Creatinine 0.81 Estim Creat Clear Calc 87 Estimated GFR > 60 Glucose 262 H POC Capillary Glucose 186 H 183 H Calcium 8.5 Magnesium 1.7 Lucía Transferrin Receptr Total Bilirubin 0.4 AST 54 ALT 44 Alkaline Phosphatase 95 Total Protein 6.7 Albumin 2.9 L POC H. pylori Urease 09/03/25 09/03/25 09/03/25 13:52 15:40 16:21 WBC RBC Hgb Hct MCV MCH MCHC RDW Plt Count MPV Immature Gran % (Auto) Neut % (Auto) Lymph % (Auto) [place] % (Auto) Eos % (Auto) Baso % (Auto) Lymph # (Auto) [place] # (Auto) Eos # (Auto) Baso # (Auto) Abs Immat Gran (auto) Absolute Neuts (auto) Absolute Nucleated RBC Nucleated RBC % Sodium Potassium Chloride Carbon Dioxide Anion Gap BUN Creatinine Estim Creat Clear Calc Estimated GFR Glucose POC Capillary Glucose 183 H 163 H Calcium Magnesium Lucía Transferrin Receptr Total Bilirubin AST ALT Alkaline Phosphatase Total Protein Albumin POC H. pylori Urease Negative Quality VTE Prophylaxis VTE prophylaxis: mechanical ordered Hospitalist MIPS Advance Care Plan I have confirmed that the patient's Advanced Care Plan is present, code status is documented, or surrogate decision maker is listed in patient medical record.: Yes Medication Reconciliation I have utilized all available resources to obtain, update and review the patients current medications (includes all prescriptions, OTC, herbals, cannabis, and nutritional supplements).: Yes
[2025-09-03] MEDS: TAMSULOSIN HCL 0.4 MG CAPSULE PO (20:55)
[2025-09-03] MEDS: PANTOPRAZOLE 40 MG TABLET PO (20:55)
[2025-09-04] MEDS: levoFLOXacin 500 MG/D5W 100 ML 500 MG/100 ML BAG 100 MG IVPB (02:39)
[2025-09-04 06:18] VITALS: BP 126/66; PULSE 88; RESP 20; TEMP 36.9; O2SAT 98
[2025-09-04 06:27] LABS: Hematocrit 26.3 % (42.0-52.0); Hemoglobin 8.5 g/dL (14.0-18.0); Mean Corpuscular HGB Conc 32.3 g/dl (32-36); Mean Corpuscular Hemoglobin 30.4 pg (26-34); Mean Corpuscular Volume 93.9 fl (80-100); Platelet Count Result 478 k/mm3 (150-375); Red Blood Count 2.80 M/mm3 (4.6-6.20); White Blood Count 8.7 K/mm3 (4.5-10.0)
[2025-09-04] MEDS: LACTATED RINGERS 1,000 ML 75 ML IV CONT (06:39)
[2025-09-04 06:49] LABS: Anion Gap 6 mmol/L (4-12); Blood Urea Nitrogen 8 mg/dL (9-20); Calcium 8.6 mg/dL (8.4-10.2); Carbon Dioxide 25 mmol/L (22-30); Chloride 104 mmol/L (98-107); Estimated CRCL calculation 78 ml/min; Estimated Glomerular Filt Rate > 60; Glucose 175 mg/dL (65-110); Potassium 4.1 mmol/L (3.4-5.0); Sodium 135 mmol/L (137-145)
[2025-09-04 08:03] VITALS: O2SAT 96
[2025-09-04] MEDS: PANTOPRAZOLE 40 MG TABLET PO (08:28)
--- NOTE | 2025-09-04 12:18 | PM.IMPN2 ---
Assessment and Plan Assessment and Plan (1) Sepsis: Code(s): A41.9 - Sepsis, unspecified organism Status: Acute Assessment and Plan: Sepsis resolved the patient was treated outpatient for pyelonephritis. Blood and urine cultures were negative earlier this month. Fever and tachycardia resolved -blood and urine cultures pending. -continue Levaquin monitor (2) Ureterolithiasis: Code(s): N20.1 - Calculus of ureter Status: Acute Assessment and Plan: -please see official CT read per radiologist. Right obstructive renal stone. -s/p Cystoscopy with -continue with IV fluids -follow up urine and blood cultures continue levaquin continue above care (3) Anemia: Code(s): D64.9 - Anemia, unspecified Status: Acute Assessment and Plan: Patient noted melena stools the last couple of days FOBT positive in the ER, Hb 9.3 and isat 14 Started on IV iron 500/1000 S/P Endoscopy and Colonoscopy Continue PPI and GI following (4) HTN (hypertension): Qualifiers: Hypertension type: essential hypertension Qualified Code(s): I10 - Essential (primary) hypertension Code(s): I10 - Essential (primary) hypertension Status: Acute Assessment and Plan: -the patient is NPO and his lisinopril was placed on hold. -p.r.n. hydralazine has been ordered. -current blood pressure is 141/76. (5) HLD (hyperlipidemia): Code(s): E78.5 - Hyperlipidemia, unspecified Status: Acute Assessment and Plan: -the patient is NPO at this time in his rosuvastatin is on hold. (6) Diabetes mellitus: Qualifiers: Diabetes mellitus type: type 2 Diabetes mellitus detention insulin use: without detention use Diabetes mellitus complication status: without complication Qualified Code(s): E11.9 - Type 2 diabetes mellitus without complications Code(s): E11.9 - Type 2 diabetes mellitus without complications Status: Acute Assessment and Plan: -Accu-Cheks q.6 hours with hypoglycemic protocol and sliding scale insulin. -check A1c if not performed in the last 3 months. Plan GI bleed Patient reported melena stool prior to presentation FOBT positive and Iron deficiency anemia Contineu PPI and S/P Endoscopy and Colonoscopy GI following DVT prophylaxis on SCDs and Lovenox on hodl pending GI bleed rule out Subjective Date/time seen: 09/04/25 12:18 Review of Systems Constitutional: Constitutional: Reports as per HPI and Reports no additional constitutional complaints Eyes: Eyes: Reports as per HPI and Reports no additional eye complaints ENT: Reports system reviewed and no additional complaints, except as documented and Reports Normal hearing present Cardiovascular: Cardiovascular: Reports no additional cardiovascular complaints Respiratory: Respiratory: Reports as per HPI and Reports no additional respiratory complaints Gastrointestinal: Gastrointestinal: Reports as per HPI and Reports no additional gastrointestinal complaints Musculoskeletal: Musculoskeletal: Reports no additional musculoskeletal complaints Integumentary/Breasts: Skin/Breast: Reports system reviewed and no additional complaints, except as docu Neurologic: Reports system reviewed and no additional complaints, except as documented and Reports Normal hearing present Psychiatric: Psychiatric: Reports no additional psychiatric complaints and Reports as per HPI Hematologic/Lymphatic: Hematologic/Lymphatic: Reports no additional hematologic/lymphatic complaints Allergic/Immunologic: Allergic/Immunologic: Reports no additional allergic/immunologic complaints Exam Const: General: cooperative, healthy appearing, comfortable, no acute distress, well developed, awake, Physically active, average body habitus and well nourished Nutritional Appearance: average body habitus and well nourished Orientation/consciousness: oriented to person, oriented to place, oriented to time and patient oriented x3 Limitations: no limitations HENMT: Head: normal to inspection, No palpable skull fracture present, normocephalic, atraumatic and abrasion Eyes: General: appearance normal, both eyes and all related structures Alignment and Position: alignment normal Periorbital: periorbital findings normal Eyelids: eyelids normal EOM: EOMs intact bilaterally Neck: Neck: normal visual inspection, full ROM and no lymphadenopathy Chest: Chest palpation & inspection: normal inspection of the chest Resp: Effort & Inspection: normal respiratory effort Auscultation: clear to auscultation bilaterally Cardio: Palpation: normal PMI Rate: tachycardic Rhythm: regular rhythm Heart sounds: S1 normal heart sound present and S2 normal heart sound present Peripheral pulses: Peripheral pulses 2+ throughout GI: Inspection: normal to inspection Auscultation: normal bowel sounds Other: Mild Right-sided cva tender Skin: General skin exam: normal color Lesions: no lesions Rashes: no rashes Trauma: no lacerations or abrasions Wounds: no wounds Nails: normal Other: Normal aging male pattern balding Neuro: General: oriented to person, oriented to place, oriented to time and patient oriented x3 Cranial nerves: Yes Normal hearing present Cognition (Neuro): normal cognition Speech: normal speech Gait exam (Neuro): Normal gait present Motor exam (neuro): 5/5 motor strength present throughout Sensory Exam: normal sensation Extrem: General: normal to inspection Right upper extremity: normal to inspection and shoulder/upper arm Left upper extremity: normal to inspection and shoulder/upper arm Right lower extremity: normal to inspection Left lower extremity: normal to inspection Psych: Appearance: grossly normal Mental Status: mental status grossly normal Speech and movement: Normal speech and movement present Affect: normal affect Attitude: cooperative Thought process: Normal thought process present Insight: Good insight present (Psych) Judgement: Good judgement present (Psych) Objective Data Vital Signs Vital Signs: Vital Signs - 24 hr 09/03/25 13:45 09/03/25 15:01 09/03/25 15:11 Temperature 97.4 F L Pulse Rate 77 73 70 Respiratory Rate 18 18 18 Blood Pressure 140/88 109/77 108/76 Pulse Oximetry 99 100 100 Oxygen Delivery Room Air Nasal Cannula Nasal Cannula Oxygen Flow Rate 6 6 09/03/25 15:21 09/03/25 15:43 09/03/25 21:41 Temperature 96.0 F L 98.4 F Pulse Rate 73 79 86 Respiratory Rate 22 H 20 Blood Pressure 127/75 150/85 H 133/76 Pulse Oximetry 100 100 97 Oxygen Delivery Room Air Oxygen Flow Rate 09/04/25 06:18 09/04/25 08:03 Temperature 98.4 F Pulse Rate 88 Respiratory Rate 20 Blood Pressure 126/66 Pulse Oximetry 98 96 Oxygen Delivery Room Air Oxygen Flow Rate Intake/Output Intake/Output: Intake & Output 09/01/25 09/02/25 09/03/25 09/04/25 23:59 23:59 23:59 23:59 Intake Total 1297 3585 1650 1282.5 Output Total 425 2775 Balance 339 872 4758 1282.5 Meds/Results Medications: Active Medications Generic Name Dose Route Start Last Admin Trade Name Freq PRN Reason Stop Dose Admin Albuterol 2 puff 09/01/25 06:32 Albuterol Sulfate (*Sp) Aerosol 1 Puff INHALATION Q4H PRN Shortness Of Breath Or Wheezing Dextrose 12.5 gm 09/01/25 06:35 Dextrose 50% 25 Gm/50 Ml Syringe IV PUSH PRN PRN Hypoglycemia Protocol Glucagon 1 mg 09/01/25 06:35 Glucagon For Inj 1 Mg Vial IM PRN PRN Hypoglycemia Protocol Glucose 15 gm 09/01/25 06:35 Glucose Oral Gel 15 Gm Of Glucse In 37.5 Gm Tube PO PRN PRN Hypoglycemia Protocol Hydralazine HCl 10 mg 09/01/25 06:45 Hydralazine Hcl 20 Mg/Ml Vial IV PUSH Q8H PRN Blood Pressure - High Hydromorphone HCl 0.5 mg 09/01/25 06:31 09/01/25 09:32 Hydromorphone Hcl Inj (*Crx) 1 Mg/Ml Syr IV PUSH 0.5 mg Q3H PRN Administration Pain Rated 7-10 Lactated Ringer's 1,000 mls @ 75 mls/hr 09/01/25 06:35 09/04/25 06:39 Lr - Lactated Ringers Iv IV CONT 75 mls/hr .[id number] NAZIA Administration Dextrose 1,000 mls @ 100 mls/hr 09/01/25 06:35 Dextrose 5% 1,000 Ml IVPB PRN PRN Hypoglycemia Protocol Insulin Aspart 2 - 5 units 09/01/25 17:00 09/04/25 11:42 Insulin Aspart (*Bkc) 100 Units/Ml SUB-Q Not Given TIDWM [facility] Protocol Levofloxacin 750 mg 09/04/25 23:00 Levofloxacin 750 Mg Tablet PO 09/06/25 21:01 QHS NAZIA Pantoprazole Sodium 40 mg 09/03/25 21:00 09/04/25 08:28 Pantoprazole 40 Mg Tablet PO 40 mg Q12HR NAZIA Administration Phenazopyridine HCl 100 mg 09/01/25 13:52 Phenazopyridine Hcl 100 Mg Tablet PO TID PRN urinary discomfort Tamsulosin HCl 0.4 mg 09/01/25 21:00 09/03/25 20:55 Tamsulosin Hcl 0.4 Mg Capsule PO 0.4 mg QHS NAZIA Administration Radiology Results: ITS Impressions Abdomen/Pelvis CT 09/01/25 08:39 IMPRESSION: 1. 1.6 cm stone at right ureteropelvic junction with moderate right hydronephrosis. 2. Nonobstructing right kidney stone. Retrograde Pyelogram 09/02/25 08:09 IMPRESSION: 1. Right nephrolithiasis and placement of a right internal ureteral stent. Unclear from the provided images whether the stone remains in place and would correlate with procedure note for further detail. Labs Labs: Laboratory Results - last 24 hr 09/03/25 09/03/25 09/03/25 13:52 15:40 16:21 WBC RBC Hgb Hct MCV MCH MCHC RDW Plt Count MPV Sodium Potassium Chloride Carbon Dioxide Anion Gap BUN Creatinine Estim Creat Clear Calc Estimated GFR Glucose POC Capillary Glucose 183 H 163 H Calcium POC H. pylori Urease Negative 09/03/25 09/04/25 09/04/25 21:16 05:51 07:35 WBC 8.7 RBC 2.80 L Hgb 8.5 L Hct 26.3 L MCV 93.9 MCH 30.4 MCHC 32.3 RDW 13.5 Plt Count 478 H MPV 10.5 H Sodium 135 L Potassium 4.1 Chloride 104 Carbon Dioxide 25 Anion Gap 6 BUN 8 L Creatinine 0.91 Estim Creat Clear Calc 78 Estimated GFR > 60 Glucose 175 H POC Capillary Glucose 205 H 174 H Calcium 8.6 POC H. pylori Urease 09/04/25 11:27 WBC RBC Hgb Hct MCV MCH MCHC RDW Plt Count MPV Sodium Potassium Chloride Carbon Dioxide Anion Gap BUN Creatinine Estim Creat Clear Calc Estimated GFR Glucose POC Capillary Glucose 179 H Calcium POC H. pylori Urease Quality VTE Prophylaxis VTE prophylaxis: mechanical ordered Hospitalist MIPS Advance Care Plan I have confirmed that the patient's Advanced Care Plan is present, code status is documented, or surrogate decision maker is listed in patient medical record.: Yes Medication Reconciliation I have utilized all available resources to obtain, update and review the patients current medications (includes all prescriptions, OTC, herbals, cannabis, and nutritional supplements).: Yes
--- NOTE | 2025-09-04 14:34 | PM.DS ---
DS: Admitting Diagnosis Discharge Date 09/04/2025 Admitting Diagnosis Right flank pain DS: Discharge Diagnosis Discharge Diagnosis (1) Sepsis: Code(s): A41.9 - Sepsis, unspecified organism Status: Acute Assessment and Plan: Please refer to hospital course for brief summary Sepsis resolved the patient was treated outpatient for pyelonephritis. Blood and urine cultures were negative earlier this month. Fever and tachycardia resolved -blood and urine cultures negative -continue Levaquin until 09/06 monitor (2) Ureterolithiasis: Code(s): N20.1 - Calculus of ureter Status: Acute Assessment and Plan: -please see official CT read per radiologist. Right obstructive renal stone. -s/p Cystoscopy with Stone manipulation without extraction and Right ureteral stent placement -continue with IV fluids -negative urine and blood cultures continue levaquin continue above care (3) Anemia: Code(s): D64.9 - Anemia, unspecified Status: Acute Assessment and Plan: Patient noted melena stools the last couple of days FOBT positive in the ER, Hb 9.3 and isat 14 Started on IV iron 500/1000 S/P Endoscopy and Colonoscopy Acute duodenal ulcer. Advised to take pantoprazole 40 mg b.i.d. for 8 weeks. H pylori biopsy pending Continue PPI and GI following (4) HTN (hypertension): Qualifiers: Hypertension type: essential hypertension Qualified Code(s): I10 - Essential (primary) hypertension Code(s): I10 - Essential (primary) hypertension Status: Acute Assessment and Plan: -the patient is NPO and his lisinopril was placed on hold. -p.r.n. hydralazine has been ordered. -current blood pressure is 141/76. (5) HLD (hyperlipidemia): Code(s): E78.5 - Hyperlipidemia, unspecified Status: Acute Assessment and Plan: -continue rosuvastatin (6) Diabetes mellitus: Qualifiers: Diabetes mellitus type: type 2 Diabetes mellitus [employer] insulin use: without [facility] use Diabetes mellitus complication status: without complication Qualified Code(s): E11.9 - Type 2 diabetes mellitus without complications Code(s): E11.9 - Type 2 diabetes mellitus without complications Status: Acute Assessment and Plan: -Accu-Cheks q.6 hours with hypoglycemic protocol and sliding scale insulin. -check A1c if not performed in the last 3 months. Plan GI bleed Patient reported melena stool prior to presentation FOBT positive and Iron deficiency anemia Contineu PPI and S/P Endoscopy and Colonoscopy Acute duodenal ulcer.Advised to take pantoprazole 40 mg b.i.d. for 8 weeks. H pylori biopsy pending GI following DVT prophylaxis on SCDs and Lovenox on hodl pending GI bleed rule out DS: Summary Hospital Course Hospital Course: 64-year-old male patient who has had a history of hypertension, hyperlipidemia, diabetes and kidney stones. The patient stated that he was treated for a kidney infection earlier this month (08/21/2025) he stated that he was feeling fine on Tuesday and thought that he had gotten over his kidney infection. However on Tuesday he woke up and he was in severe pain to his right flank area. He stated that he found some old pain medication (Tylenol with codeine) at home and took that. He stated helped for a little bit and then the pain came back. He denied any nausea /vomiting, or fever /chills. T-max 100.8?. He was tachycardic. Blood pressure was low. The patient had a CT scan in the emergency room with a preliminary report of a obstructing stone with moderate hydronephrosis to the right kidney. Regarding right nephrolithiasis: Patient underwent cystoscopy, right retrograde pyelogram with intraoperative interpretation, stone manipulation without extraction and right ureteral stent placement. Needs to follow-up with urology as an outpatient. Urine culture negative. Will complete levofloxacin Regarding anemia: Patient underwent EGD and colonoscopy. EGD shows acute duodenal ulcer. GI advised PPI b.i.d. for 8 weeks. H pylori biopsy pending. Needs to close follow-up with the GI. On the day of discharge, the patient was seen and examined. Vital signs were stable. Physical exam were stable and labs were reviewed at length. Discharge instructions, medications, and follow-up appointments were discussed with the patient at length and all day questions were answered. ER warnings were given. Status at Discharge Cognitive/behavioral status at discharge: Stable Time Spent with Patient Time attestation: Total time spent providing and/or coordinating discharge services: 45 minute Exam GI: Other: Mild Right-sided cva tender Skin: Other: Normal aging male pattern balding DS: Data Data Completed and Pending Pending studies at discharge: Pending at discharge 09/03/25 14:50 Surgical [PTH] Routine Labs on day of discharge: Labs from last 24 hours 09/04/25 09/04/25 09/04/25 11:27 07:35 05:51 WBC 8.7 RBC 2.80 L Hgb 8.5 L Hct 26.3 L MCV 93.9 MCH 30.4 MCHC 32.3 RDW 13.5 Plt Count 478 H MPV 10.5 H Sodium 135 L Potassium 4.1 Chloride 104 Carbon Dioxide 25 Anion Gap 6 BUN 8 L Creatinine 0.91 Estim Creat Clear Calc 78 Estimated GFR > 60 Glucose 175 H POC Capillary Glucose 179 H 174 H Calcium 8.6 POC H. pylori Urease 09/03/25 09/03/25 09/03/25 21:16 16:21 15:40 WBC RBC Hgb Hct MCV MCH MCHC RDW Plt Count MPV Sodium Potassium Chloride Carbon Dioxide Anion Gap BUN Creatinine Estim Creat Clear Calc Estimated GFR Glucose POC Capillary Glucose 205 H 163 H Calcium POC H. pylori Urease Negative Preliminary micro results at discharge 09/01/25 07:40 Blood Culture - Preliminary Blood 09/01/25 07:35 Blood Culture - Preliminary Blood Imaging Radiologist's impression: ITS Impressions Abdomen/Pelvis CT 09/01/25 08:39 IMPRESSION: 1. 1.6 cm stone at right ureteropelvic junction with moderate right hydronephrosis. 2. Nonobstructing right kidney stone. Retrograde Pyelogram 09/02/25 08:09 IMPRESSION: 1. Right nephrolithiasis and placement of a right internal ureteral stent. Unclear from the provided images whether the stone remains in place and would correlate with procedure note for further detail. Discharge Plan Discharge Attending physician on discharge: Melvin Rodriguez Consulting providers: Thiago Bauer Discharging Clinician: Melvin Rodriguez Anticipated Discharge Date/Time: 09/04/25 14:29 Patient Disposition: Home Activity: as tolerated Diet: other - see discharge instructions Discharge Instructions: Please do not take any spicy food. Follow-up with Urology, GI, and PCP within a week upon discharge Follow-up H pylori results with the GI. Patient Instructions: Antibiotic Form Patient Language: Citizen Of [place] Stand Alone Forms: General Discharge Information Follow-up/Referrals: Shan Lewis MD [Primary Care Provider, Internal Medicine] Thiago Bauer MD [Physician, Urology] Andre Sanchez MD [Physician, Gastroenterology] Discharge Medications: New tamsulosin 0.4 mg capsule 0.4 mg PO DAILY Qty: 40 0RF phenazopyridine [Pyridium] 200 mg tablet 200 mg PO TID Qty: 18 0RF solifenacin 5 mg tablet 5 mg PO DAILY Qty: 40 0RF tamsulosin 0.4 mg Capsule 0.4 mg PO QHS Qty: 30 0RF phenazopyridine 100 mg Tablet 100 mg PO TID PRN (Reason: urinary discomfort) Qty: 30 0RF pantoprazole 40 mg Tablet,Delayed Release (Dr/Ec) 40 mg PO Q12HR Qty: 60 0RF levofloxacin 750 mg tablet 750 mg PO DAILY Qty: 3 0RF Continued acetaminophen-codeine 300-15 mg tablet 1 tablet PO Q8H PRN (Reason: pain (scale score 7-10)) Qty: 15 0RF Rx Instructions: to be use for sever pain only for moderate to mild pain use regular Tylenol acetaminophen 500 mg capsule 1,000 mg PO Q6H PRN (Reason: pain) Qty: 30 0RF allopurinol 100 mg tablet 100 mg PO HS lisinopril 10 mg tablet 10 mg PO HS mupirocin [Centany] 2 % ointment 1 applic topical BID Rx Instructions: to be used in both nostrils rosuvastatin 10 mg tablet 10 mg PO HS Ozempic 1 mg/dose (4 mg/3 mL) pen injector See Rx Instructions .ROUTE .COMPLEX Qty: 9 2RF Dose Instruction: INJECT SUBCUTANEOUSLY 1 MG EVERY WEEK Patient Comments: Fridays for Diabetes. Rx Instructions: INJECT SUBCUTANEOUSLY 1 MG EVERY WEEK albuterol sulfate [Ventolin HFA] 90 mcg/actuation HFA aerosol inhaler 1 inh inhalation Q4H PRN (Reason: shortness of breath or wheezing) Qty: 25.5 0RF Date of admission: 09/01/25 01:23 Primary Care Provider: Shan Lewis Admitting Provider: Racheal Lombardo Attending physician on admission: Racheal Lombardo Condition: Stable
[2025-09-04 14:40] VITALS: BP 128/78; PULSE 85; RESP 17; TEMP 36.5; O2SAT 98
[2025-09-04 16:08] LABS: Albumin, U 13.3 % (.); Alpha-1-Globulin, U 5.7 % (.); Alpha-2-Globulin, U 18.7 % (.); Beta Globulin, U 35.3 % (.); Gamma Globulin, U 27.0 % (.)
== END 2025-09-04 15:05 | disposition home or self-care (01) ==
LOC: ANHED 22:26 → ANH3MEDSUR 09-01 03:43
PROVIDERS: Internal Medicine Gastroenterology; Nurse Practitioner; Urology; Admitting Provider Internal Medicine; PCP Emergency Medicine; Visit Provider General Practice
PROC: (CPT 52352; principal; 2025-09-01 12:00)
PROC: 0DJ08ZZ Inspection of Upper Intestinal Tract, Via Natural or Artificial Opening Endoscopic (ICD-10-PCS; CPT 45378; principal; 2025-09-03 13:30)
DX: A41.9 Sepsis, unspecified organism (principal); K26.3 Acute duodenal ulcer without hemorrhage or perforation; N13.2 Hydronephrosis with renal and ureteral calculous obstruction; N10 Acute pyelonephritis; K63.5 Polyp of colon; K57.30 Diverticulosis of large intestine without perforation or abscess without bleeding; K64.8 Other hemorrhoids; K44.9 Diaphragmatic hernia without obstruction or gangrene; K92.1 Melena; R82.90 Unspecified abnormal findings in urine; D50.9 Iron deficiency anemia, unspecified; R00.0 Tachycardia, unspecified; I10 Essential (primary) hypertension; E78.5 Hyperlipidemia, unspecified; E11.9 Type 2 diabetes mellitus without complications; Z79.85 Long-term (current) use of injectable non-insulin antidiabetic drugs
CPT/HCPCS: 52332; 52330; 45385; 43239; 36415; 74177; 74420; 80048; 80053; 81001; 82247; 82248; 82607; 82728; 82746; 82948; 83010; 83036; 83540; 83550; 83605; 83615; 83690; 83735; 84156; 84166; 84238; 84443; 84466; 85014; 85018; 85025; 85027; 85046; 85610; 85730; 86880; 87040; 87081; 87086; 88305; 96361; 96365; 96366; 96367; 96375; 96376; 99285; J0690; A9270; C1758; C1769; C2617; G0378; J1171; J1756; J1815; J1956; J2003; J2250; J2270; J2405; J2704; J3010; J7050; J7120; Q9967